=== PATIENT | female | born 1985 | race Two or more races ===

== ENCOUNTER 2016-11-15 06:40 | Observation (INO) | payer OTHER ==
[2016-11-15] MEDS ORDERED: ONDANSETRON 4 MG/2 ML VIAL IVP STA ×2 (07:23→14:08)
[2016-11-15] MEDS ORDERED: HYDROmorphone 1 MG/ML SYRINGE IVP STA ×2 (07:23→14:08)
[2016-11-15] MEDS ORDERED: ONDANSETRON 4 MG/2 ML VIAL ONE ×2 (07:27→14:10)
[2016-11-15] MEDS ORDERED: HYDROmorphone 1 MG/ML SYRINGE ONE ×2 (07:27→14:10)
--- NOTE | 2016-11-15 07:28 | ED Physician Documentation ---
History of Present Illness - Stated complaint Stated Complaint: LOW ABD PX - Chief complaint Chief Complaint: Abd Pain - Additonal information Additional information: hx from pt and no prior abd surgery recently stopped control and started IVF process in ovarian stimulation stage, has not had eggs collected or implantation began synarel nasal spray for ovarian stimulation Wednesday (6 d ago) , started subQ Follisteminjection Wed (2 days ago) vag bleeding began Wed (4 days ago) - light pelvic pain began Wednesday before her first subQ injection pain severe this AM nausea no BM for 2 days no dysuria no fever [facility] Review of Systems Constitutional: denies: Fever Cardiac: denies: Chest pain / pressure Respiratory: denies: Dyspnea GI: reports: Abdominal Pain, Nausea. denies: Diarrhea : reports: Vaginal bleeding. denies: Dysuria, Now EGA Endocrine: denies: Easy bruising / bleeding Immunocompromised: denies: Immunocompromised PD PAST MEDICAL HISTORY - Past Medical History Past Medical History: No - Past Surgical History Past Surgical History: Yes - Present Medications Home Medications: Ambulatory Orders Medication Instructions Recorded Confirmed Follitropin Beta,Recomb [Follistim IM DAILY 11/15/16 Aq] Oxymetazoline HCl [Nasal Crawford] 11/15/16 - Allergies Allergies/Adverse Reactions: Allergies Allergy/AdvReac Type Severity Reaction Status Date / Time No Known Drug Allergies Allergy Verified 11/15/16 06:46 - Social History Does the pt smoke?: No Smoking Status: Never smoker Does the pt drink ETOH?: No Does the pt have substance abuse?: No - Immunizations Immunizations are current?: Yes - POLST Patient has POLST: No PD ED PE NORMAL - Vitals Vital signs reviewed: Yes - General General: Alert and oriented X 3 - HEENT HEENT: Atraumatic - Cardiac Cardiac: RRR - Respiratory Respiratory: No respiratory distress, Clear bilaterally - Abdomen Abdomen: Other (mild distension, peritoneal diffusely) - Derm Derm: Normal color - Neuro Neuro: Alert and oriented X 3 Results - Vitals Vitals: Vital Signs - 24 hr 11/15/16 11/15/16 11/15/16 06:46 10:11 11:27 Temperature 36.7 C Heart Rate 105 H 92 88 Respiratory 18 16 14 Rate Blood Pressure 122/73 115/76 108/72 O2 Saturation 100 100 97 11/15/16 12:58 Temperature Heart Rate 89 Respiratory 16 Rate Blood Pressure 115/73 O2 Saturation 100 Oxygen O2 Source Room air - Labs Labs: Laboratory Tests 11/15/16 11/15/16 11/15/16 07:00 07:00 07:00 WBC 16.7 H RBC 4.74 Hgb 14.3 Hct 41.8 MCV 88.3 MCH 30.1 MCHC 34.1 RDW 14.0 Plt Count 317 MPV 8.7 Neut # 14.1 H Lymph # 1.5 [place] # 1.0 Eos # 0.1 Baso # 0.0 Absolute Nucleated RBC 0.01 Nucleated RBCs 0.0 Sodium 135 Potassium 3.6 Chloride 100 L Carbon Dioxide 26 Anion Gap 9.0 BUN 6 Creatinine 0.8 Estimated GFR (MDRD) 84 L Glucose 115 H Calcium 9.3 Total Bilirubin 1.8 H AST 16 ALT 12 Alkaline Phosphatase 54 Total Protein 8.1 Albumin 4.0 Globulin 4.1 Albumin/Globulin Ratio 1.0 Lipase 17 L Serum HCG, Qual NEGATIVE Urine Color Urine Clarity Urine pH Ur Specific [place] Urine Protein Urine Glucose (UA) Urine Ketones Urine Occult Blood Urine Nitrite Urine Bilirubin Urine Urobilinogen Ur Leukocyte Esterase Urine RBC Urine WBC Ur Epithelial Cells Ur Squamous Epith Cells Urine Bacteria Ur Microscopic Review Urine Culture Comments Urine HCG, Qual Blood Type Antibody Screen 11/15/16 11/15/16 11/15/16 10:10 10:10 11:20 WBC RBC Hgb 13.6 Hct MCV MCH MCHC RDW Plt Count MPV Neut # Lymph # [place] # Eos # Baso # Absolute Nucleated RBC Nucleated RBCs Sodium Potassium Chloride Carbon Dioxide Anion Gap BUN Creatinine Estimated GFR (MDRD) Glucose Calcium Total Bilirubin AST ALT Alkaline Phosphatase Total Protein Albumin Globulin Albumin/Globulin Ratio Lipase Serum HCG, Qual Urine Color RED/BLOODY Urine Clarity CLOUDY Urine pH 5.5 Ur Specific [place] >=1.030 H Urine Protein 100 H Urine Glucose (UA) NEGATIVE Urine Ketones >=80 H Urine Occult Blood LARGE H Urine Nitrite NEGATIVE Urine Bilirubin NEGATIVE Urine Urobilinogen 1 (NORMAL) Ur Leukocyte Esterase TRACE H Urine RBC TNTC H Urine WBC 11-25 H Ur Epithelial Cells MOD Renal Tubular H Ur Squamous Epith Cells MANY Squamous H Urine Bacteria Moderate H Ur Microscopic Review INDICATED Urine Culture Comments NOT INDICATED Urine HCG, Qual NEGATIVE Blood Type O POSITIVE Antibody Screen NEGATIVE PD MEDICAL DECISION MAKING - ED course ED course: ruptured hemorrhagic cyst with moderate hemoperitoneum - will rpt 4 hr HGB and requested BODY SANDER to come eval pt seen by Dr Love who will admit her Departure - Departure Disposition: ED Place in Observation Clinical Impression: Hemoperitoneum, Ruptured ovarian cyst Condition: Fair
[2016-11-15 07:33] LABS: BASOPHILS % (AUTO) 0.3 %; EOSINOPHILS # (AUTO) 0.1 10^3/uL (0.0-0.7); EOSINOPHILS % (AUTO) 0.4 %; HCT - HEMATOCRIT 41.8 % (37.0-47.0); HGB - HEMOGLOBIN 14.3 g/dL (12.0-16.0); LYMPHOCYTES # (AUTO) 1.5 10^3/uL (1.5-3.5); MEAN CORPUSCULAR HEMOGLOBIN 30.1 pg (27.0-31.0); MEAN CORPUSCULAR HGB CONC 34.1 g/dL (32.0-36.0); MEAN CORPUSCULAR VOLUME 88.3 fL (81.0-99.0); MEAN PLATELET VOLUME 8.7 fL (7.9-10.8); MONOCYTES % (AUTO) 6.1 %; NEUTROPHILS # (AUTO) 14.1 10^3/uL (1.5-6.6); NEUTROPHILS % (AUTO) 84.2 %; RED BLOOD COUNT 4.74 10^6/uL (4.20-5.40); UNCORRECTED WHITE BLOOD COUNT 16.7 x10^3/uL; WHITE BLOOD COUNT 16.7 x10^3/uL (4.8-10.8)
[2016-11-15 07:42] LABS: BILIRUBIN,TOTAL 1.8 mg/dL (0.2-1.0); CALCIUM 9.3 mg/dL (8.5-10.3); CREATININE 0.8 mg/dL (0.4-1.0); POTASSIUM 3.6 mmol/L (3.5-5.0); TOTAL PROTEIN 8.1 g/dL (6.7-8.2)
--- NOTE | 2016-11-15 09:35 | Ultrasound Preliminary Report ---
Exam: US Pel Non OB w/TV + Dop IMPRESSION: 1. A right ovarian complex cyst, likely a hemorrhagic cyst, 2 cm in maximum dimension with moderate a mount of mild complex free fluid in the cul-de-sac. 2. Negative ovarian torsion. 3. An anterior fundal subserosal fibroid, 0.9 cm in diameter. RAD[facility] SITE ID: [id number]
--- NOTE | 2016-11-15 09:37 | Ultrasound Report ---
EXAM: PELVIC ULTRASOUND EXAM DATE: 11/15/2016 08:58 AM. CLINICAL HISTORY: Pelvic pain. LMP on 11/11/2016. COMPARISON: None. TECHNIQUE: Realtime transabdominal pelvic scan performed to identify the uterus and adnexa and as an overview of other pelvic structures, followed by transvaginal scan to provide greater detail of the u terus and adnexa, with static image documentation. FINDINGS: Uterus: 6.5 x 3.6 x 3.9 cm, volume 47.7 cc. Retroverted position. Normal overall size and echotexture . Masses: There is anterior fundal subserosal fibroid, 0.9 x 0.7 x 0.8 cm. Endometrium: 3.4 mm. Normal. Cervix: Unremarkable. Right Ovary: 4.6 x 2.6 x 3.9 cm, volume 24.4 cc. There is complex cysts, 1.9 x 2 x 1.4 cm, probable h emorrhagic cyst and there is also a simple cyst, probable follicle cysts, 0.8 cm in diameter; otherw ise, unremarkable echotexture and blood flow. Left Ovary: 2.8 x 2.1 x 1.7 cm, volume 5.2 cc. Normal echotexture and blood flow. Free Fluid: Moderate amount of free fluid with echoic component in the cul-de-sac visualized. IMPRESSION: 1. A right ovarian complex cyst, likely a hemorrhagic cyst, 2 cm in maximum dimension with moderate a mount of mild complex free fluid in the cul-de-sac. 2. Negative ovarian torsion. 3. An anterior fundal subserosal fibroid, 0.9 cm in diameter. RAD[facility] Referring Provider Line: [phone] SITE ID: [id number]
[2016-11-15 11:34] LABS: PH,URINE 5.5 PH (5.0-7.5)
[2016-11-15 11:37] LABS: BILIRUBIN,URINE NEGATIVE (NEGATIVE); UA w/ MICROSCOPIC CHARGE YES
[2016-11-15 11:38] LABS: HCG UR QUAL NEGATIVE
[2016-11-15 12:02] LABS: UR CULTURE IF IND NOT INDICATED
[2016-11-15] MEDS ORDERED: SODIUM CHLORIDE FLUSH 0.9% 10 ML SYRINGE IVP PRN (14:13)
[2016-11-15] MEDS ORDERED: HYDROmorphone 1 MG/ML SYRINGE IVP PRN (14:13)
[2016-11-15] MEDS: LACTATED RINGERS 1,000 ML IV SCH ×2 (15:26→21:31)
[2016-11-15] MEDS: ONDANSETRON 4 MG/2 ML VIAL IVP PRN (18:09)
[2016-11-15 18:50] LABS: BASOPHILS % (AUTO) 0.1 %; EOSINOPHILS % (AUTO) 0.1 %; HCT - HEMATOCRIT 38.1 % (37.0-47.0); HGB - HEMOGLOBIN 12.7 g/dL (12.0-16.0); LYMPHOCYTES # (AUTO) 1.2 10^3/uL (1.5-3.5); LYMPHOCYTES % (AUTO) 8.1 %; MEAN CORPUSCULAR HEMOGLOBIN 29.6 pg (27.0-31.0); MEAN CORPUSCULAR HGB CONC 33.2 g/dL (32.0-36.0); MEAN CORPUSCULAR VOLUME 88.9 fL (81.0-99.0); MEAN PLATELET VOLUME 7.8 fL (7.9-10.8); MONOCYTES # (AUTO) 0.8 10^3/uL (0.0-1.0); MONOCYTES % (AUTO) 5.7 %; NEUTROPHILS # (AUTO) 12.5 10^3/uL (1.5-6.6); RED BLOOD COUNT 4.29 10^6/uL (4.20-5.40); UNCORRECTED WHITE BLOOD COUNT 14.5 x10^3/uL; WHITE BLOOD COUNT 14.5 x10^3/uL (4.8-10.8)
--- NOTE | 2016-11-15 21:01 | HISTORY & PHYSICAL EXAMINATION ---
OBSERVATION NOTE DATE OF ADMISSION: 11/15/2016 DIAGNOSES 1. Hemoperitoneum with ruptured left hemorrhagic corpus luteum. 2. In vitro fertilization patient. 3. Severe left lower quadrant pain. HISTORY OF PRESENT ILLNESS: The patient is a 31-year-old nulligravida , who began her first cycle of Ovarian Stimulation / IVF at the [facility]. She had pre-stimulation oxymetazoline nasal spray, followed by first injection of follitropin recombinant. On Wednesday, she noted predominantly lower quadrant pain on the left that gradually increased during the weekend. It became severe, /, which prompted her to present at the emergency room on early Wednesday morning. She reports malaise, nausea or vomiting, with some orthostatic dizziness, but no syncope,. She has no chest pain or shortness of breath, fevers, or chills, . Four days ago, she reports vaginal spotting. Her last bowel movement was 2 days ago and described as normal. PAST MEDICAL HISTORY: The patient has no chronic disease history or hospitalizations. PAST SURGICAL HISTORY: Wrist orthopedic surgery. ALLERGIES: NO KNOWN DRUG ALLERGIES. SOCIAL HISTORY: , [place] . No drug, tobacco or alcohol use. FAMILY HISTORY: noncontributory REVIEW OF SYSTEMS CONSTITUTIONAL: No fever. Malaise, orthostatic dizziness. HEENT: Negative. LUNGS: Negative. CARDIOVASCULAR: Negative. GASTROINTESTINAL: Negative. GENITOURINARY: Reference HPI. MUSCULOSKELETAL: Fracture, left wrist. NEUROLOGICAL: Negative. PHYSICAL EXAMINATION GENERAL: Patient lying quietly on ER gurney flat, some lethargy secondary to recent Dilaudid, verbalizes abdominal pain. HEENT/NECK: Supple neck. Moist mucous membranes. Dentition in good repair. EOMI. No thyromegaly. LUNGS: Clear. CARDIAC: Regular, no murmur, no gallop. BREASTS: Deferred. ABDOMEN: Mild distention, no organomegaly, grade 2/3 bilateral lower quadrant pain more distinct on the left side with mild peritoneal signs. PELVIC: Deferred. EXTREMITIES: Nonedematous with fingers and feet cool to touch. NEUROLOGIC: Grossly intact. LABORATORY: Baseline hemoglobin 14.3. Repeat hemoglobin in 3 hours 13.9. White count 16.7, platelets 317. Sodium 135, potassium 3.5, creatinine 0.8, glucose 105. Total bilirubin high at 1.8. Lipase low at 17. Urine: Increased specific gravity at 1.3, positive ketones, moderate renal tubular casts, moderate bacteria. Ultrasound: hemoperitoneum with some tracking into the upper abdomen. The free fluid is evidently blood as evidenced by peritoneal signs, and this is inducing moderate abdominal pain. PLAN: Will place the patient under observation for vital sign tracking, IV fluids and pain control. The bleeding is self limiting in the majority of the cases. If necessary, the patient may become laparoscopy candidate. Discussed plan with family and they concur. JOB #: [id number] EXT JOB #:[id number] DANAE
[2016-11-15] MEDS: SODIUM CHLORIDE FLUSH 0.9% 10 ML SYRINGE IVP SCH (23:08)
[2016-11-16] MEDS: ONDANSETRON 4 MG/2 ML VIAL IVP PRN ×2 (00:25→06:55)
[2016-11-16 02:15] LABS: BASOPHILS # (AUTO) 0.1 10^3/uL (0.0-0.1); EOSINOPHILS # (AUTO) 0.1 10^3/uL (0.0-0.7); EOSINOPHILS % (AUTO) 0.7 %; HCT - HEMATOCRIT 34.8 % (37.0-47.0); HGB - HEMOGLOBIN 11.8 g/dL (12.0-16.0); LYMPHOCYTES # (AUTO) 1.9 10^3/uL (1.5-3.5); LYMPHOCYTES % (AUTO) 17.5 %; MEAN CORPUSCULAR VOLUME 88.4 fL (81.0-99.0); MEAN PLATELET VOLUME 7.7 fL (7.9-10.8); MONOCYTES # (AUTO) 0.8 10^3/uL (0.0-1.0); MONOCYTES % (AUTO) 7.4 %; NEUTROPHILS # (AUTO) 7.9 10^3/uL (1.5-6.6); NEUTROPHILS % (AUTO) 73.4 %; RED BLOOD COUNT 3.94 10^6/uL (4.20-5.40); RED CELL DISTRIBUTION WIDTH 13.7 % (12.0-15.0); UNCORRECTED WHITE BLOOD COUNT 10.8 x10^3/uL; WHITE BLOOD COUNT 10.8 x10^3/uL (4.8-10.8)
[2016-11-16 02:25] LABS: ALBUMIN/GLOBULIN RATIO 0.9 (1.0-2.2); BILIRUBIN,TOTAL 1.3 mg/dL (0.2-1.0); CALCIUM 8.4 mg/dL (8.5-10.3); CREATININE 0.6 mg/dL (0.4-1.0); POTASSIUM 3.7 mmol/L (3.5-5.0); TOTAL PROTEIN 6.6 g/dL (6.7-8.2)
[2016-11-16] MEDS: LACTATED RINGERS 1,000 ML IV SCH ×2 (03:20→09:13)
[2016-11-16] MEDS: SODIUM CHLORIDE FLUSH 0.9% 10 ML SYRINGE IVP SCH ×2 (06:55→13:43)
[2016-11-16] MEDS ORDERED: IBUPROFEN 400 MG TABLET PO PRN (07:54)
--- NOTE | 2016-11-16 16:30 | Discharge Plan ---
Discharge Plan Disposition: Home, Self Care Condition: Good Diet: Regular Activity Restrictions: Work Excuse Thru Wednesday Shower Restrictions: No Driving Restrictions: Yes (Refrain from driving if taking [place]) Weight Bearing: Full Weight Additional Instructions or Follow Up instructions: Call [facility], FU on Wednesday as scheduled at IVF Clinic No Smoking: If you smoke, Please STOP! Call for help. Follow-up with: Ron Love MD [Provider Admit Priv/Credential] -
--- NOTE | 2016-11-16 16:41 | PROVIDER PROGRESS NOTE ---
Subjective - Prog Note Date Prog Note Date: 11/16/16 - Subjective Pt reports feeling: Improved Subjective: Pt improved, toileting, and eating well. Ready for Discharge Objective - Vital Signs/Intake & Output Vital Signs: Vital Signs x48h Temp Pulse Resp BP Pulse Ox 11/16/16 15:35 98.2 F 76 16 100/68 100 11/16/16 13:00 98.2 F 83 18 96/64 99 11/16/16 11:00 98.6 F 86 18 102/67 99 Intake & Output: Intake & Output 11/13/16 11/14/16 11/15/16 11/16/16 23:59 23:59 23:59 23:59 Intake Total 1093 2121 Output Total 220 1120 Balance 873 1001 - Lab Results Fish Bones: 11/16/16 02:08 11/16/16 02:08 Other Labs: Lab Results x24hrs 11/16/16 11/16/16 11/15/16 Range/Units 02:08 02:08 18:43 WBC 10.8 14.5 H (4.8-10.8) x10^3/uL RBC 3.94 L 4.29 (4.20-5.40) 10^6/uL Hgb 11.8 L 12.7 (12.0-16.0) g/dL Hct 34.8 L 38.1 (37.0-47.0) % MCV 88.4 88.9 (81.0-99.0) fL MCH 30.0 29.6 (27.0-31.0) pg MCHC 34.0 33.2 (32.0-36.0) g/dL RDW 13.7 14.0 (12.0-15.0) % Plt Count 255 287 (130-450) 10^3/uL MPV 7.7 L 7.8 L (7.9-10.8) fL Neut # 7.9 H 12.5 H (1.5-6.6) 10^3/uL Lymph # 1.9 1.2 L (1.5-3.5) 10^3/uL [place] # 0.8 0.8 (0.0-1.0) 10^3/uL Eos # 0.1 0.0 (0.0-0.7) 10^3/uL Baso # 0.1 0.0 (0.0-0.1) 10^3/uL Absolute Nucleated RBC 0.00 0.00 x10^3/uL Nucleated RBCs 0.0 0.0 /100WBC Sodium 136 (135-145) mmol/L Potassium 3.7 (3.5-5.0) mmol/L Chloride 102 (101-111) mmol/L Carbon Dioxide 26 (21-32) mmol/L Anion Gap 8.0 (6-13) BUN 8 (6-20) mg/dL Creatinine 0.6 (0.4-1.0) mg/dL Estimated GFR (MDRD) 117 (>89) Glucose 100 (70-100) mg/dL Calcium 8.4 L (8.5-10.3) mg/dL Total Bilirubin 1.3 H (0.2-1.0) mg/dL AST 14 (10-42) IU/L ALT 13 (10-60) IU/L Alkaline Phosphatase 40 L (42-121) IU/L Total Protein 6.6 L (6.7-8.2) g/dL Albumin 3.2 (3.2-5.5) g/dL Globulin 3.4 (2.1-4.2) g/dL Albumin/Globulin Ratio 0.9 L (1.0-2.2)
[2016-11-16] MEDS ORDERED: HYDROcod/ACETAM 5/325 MG TABLET PO SCH (17:00)
[2016-11-16 17:16] VITALS: BP 105/71
== END 2016-11-16 18:00 | disposition home or self-care (01) ==
LOC: ED 06:40 → MS 14:13
PROVIDERS: ADMIT Obstetrics & Gynecology; ATTEND Obstetrics & Gynecology
DX: K66.1 Hemoperitoneum (principal); N83.11 Corpus luteum cyst of right ovary; Z79.899 Other long term (current) drug therapy
CPT/HCPCS: 36415; 76830; 76856; 80053; 81001; 81025; 83690; 84703; 85018; 85025; 86850; 86900; 86901; 93975; 96361; 96374; 96375; 96376; 99283; 99284; A9270; G0378; J1170; J7120; 81003; 87086

== ENCOUNTER 2017-09-07 08:00 | Outpatient (CLI) | payer OTHER ==
[2017-09-07 18:46] LABS: BILIRUBIN,URINE NEGATIVE (NEGATIVE); GLUCOSE, URINE (UA) NEGATIVE (NEGATIVE); KETONES,URINE (UA) NEGATIVE (NEGATIVE); LEUKOCYTE ESTERASE, URINE NEGATIVE (NEGATIVE); NITRITE,URINE NEGATIVE (NEGATIVE); OCCULT BLOOD,URINE NEGATIVE (NEGATIVE); PH,URINE 5.5 PH (5.0-7.5); PROTEIN,URINE NEGATIVE (NEGATIVE); UROBILINOGEN,URINE 0.2 (NORMAL) E.U./dL (NORMAL)
[2017-09-07 18:54] LABS: BACTERIA,URINE None Seen /HPF (None Seen); CLARITY,URINE CLEAR (CLEAR); RBC,URINE None Seen /HPF (0-5); SQUAMOUS EPITHELIAL CELL,UR MOD Squamous (<= Few)
[2017-09-07 18:56] LABS: BASOPHILS % (AUTO) 0.5 %; EOSINOPHILS # (AUTO) 0.2 10^3/uL (0.0-0.7); EOSINOPHILS % (AUTO) 2.9 %; HGB - HEMOGLOBIN 12.4 g/dL (12.0-16.0); LYMPHOCYTES % (AUTO) 31.2 %; MEAN CORPUSCULAR HGB CONC 32.9 g/dL (32.0-36.0); MEAN PLATELET VOLUME 7.9 fL (7.9-10.8); MONOCYTES # (AUTO) 0.5 10^3/uL (0.0-1.0); MONOCYTES % (AUTO) 7.2 %; NEUTROPHILS # (AUTO) 3.7 10^3/uL (1.5-6.6); NEUTROPHILS % (AUTO) 58.2 %; PLT - PLATELET COUNT 351 10^3/uL (130-450); RED BLOOD COUNT 4.29 10^6/uL (4.20-5.40); RED CELL DISTRIBUTION WIDTH 13.7 % (12.0-15.0); WHITE BLOOD COUNT 6.4 x10^3/uL (4.8-10.8)
[2017-09-08 09:11] LABS: HEPATITIS B SURFACE ANTIGEN NON-REACTIVE (NON-REACTIVE)
[2017-09-08 15:46] LABS: HIV AG/AB 4TH GEN NON-REACTIVE (NON-REACTIVE)
== END 2017-09-07 08:01 | disposition home or self-care (01) ==
LOC: LAB.N 08:00
PROVIDERS: ATTEND Obstetrics & Gynecology
DX: O09.01 Supervision of pregnancy with history of infertility, first trimester (principal); Z32.00 Encounter for pregnancy test, result unknown
CPT/HCPCS: 36415; 81001; 81599; 84702; 85025; 86592; 86762; 86850; 86900; 86901; 87340; 87389

== ENCOUNTER 2017-09-09 15:26 | Outpatient (CLI) | payer OTHER | END 2017-09-09 15:27 | disposition home or self-care (01) | LOC: LAB.N 15:26 | PROVIDERS: ATTEND Obstetrics & Gynecology | DX: Z32.00 Encounter for pregnancy test, result unknown (principal) | CPT/HCPCS: 36415; 84702 ==

== ENCOUNTER 2017-09-16 14:58 | Outpatient (CLI) | payer OTHER ==
--- NOTE | 2017-09-20 15:10 | Ultrasound Report ---
FIRST TRIMESTER OB ULTRASOUND WITH TRANSVAGINAL: 09/16/2017 CLINICAL INDICATION: History of infertility, dating. TECHNIQUE: Transabdominal pelvic ultrasound performed for global evaluation. Transvaginal pelvic ultrasound performed for detailed evaluation. Real-time scanning performed and static images obtained. LAST MENSTRUAL PERIOD 07/31/2017 Clinical Age 6 weeks 5 days US Age 6 weeks 5 days EFW [place] -- EFW% [place]lock -- Heart Rate 142 bpm EDC 05/07/2018 US EDC 05/07/2018 BPD [place] -- HC [place]lock -- AC [place]lock -- FL Hadlock -- Presentation -- Placental Location -- Cervical Length closed Amniotic Fluid -- FINDINGS: There is a single viable intrauterine gestation, measuring 6 weeks 5 days by crown rump length (6 weeks 5 days by LMP). A small perigestational hemorrhage is seen. heart rate is 142 BPM. The right ovary measures 2.7 x 1.5 x 1.0 cm, and the left ovary measures 3.0 x 3.0 x 2.5 cm. There appears to be a right hydrosalpinx present interposed between the right ovary and uterus. Trace fluid is present. IMPRESSION: SINGLE VIABLE INTRAUTERINE GESTATION, WITH SIZE IN KEEPING WITH LMP DATING. SMALL PERIGESTATIONAL HEMORRHAGE. TD: 09/17/2017 11:13 [facility]
== END 2017-09-16 14:59 | disposition home or self-care (01) ==
LOC: DI 14:58
PROVIDERS: ATTEND Obstetrics & Gynecology
DX: O20.0 Threatened abortion (principal); O20.9 Hemorrhage in early pregnancy, unspecified; Z3A.01 Less than 8 weeks gestation of pregnancy
CPT/HCPCS: 76801; 76817

== ENCOUNTER 2017-10-14 17:27 | Outpatient (CLI) | payer OTHER ==
[2017-10-14 18:53] LABS: MUDS CUTOFF CONCENTRATIONS CUTOFF CONC BELOW:
[2017-10-14 19:11] LABS: AMPHETAMINE SCREEN,URINE NEGATIVE (NEGATIVE); BENZODIAZEPINES SCREEN, URINE NEGATIVE (NEGATIVE); COCAINE SCREEN URINE NEGATIVE (NEGATIVE); METHADONE SCREEN, URINE NEGATIVE (NEGATIVE); METHAMPHETAMINES SCREEN, URINE NEGATIVE (NEGATIVE); OPIATE SCREEN, URINE NEGATIVE (NEGATIVE); OXYCODONE SCREEN, URINE NEGATIVE (NEGATIVE); PROPOXYPHENE SCREEN, URINE NEGATIVE (NEGATIVE); TRICYCLIC ANTIDEPRESSANT,URINE NEGATIVE (NEGATIVE)
== END 2017-10-14 17:28 | disposition home or self-care (01) ==
LOC: LAB.R 17:27
PROVIDERS: ATTEND Obstetrics & Gynecology
DX: Z36.9 Encounter for antenatal screening, unspecified (principal)
CPT/HCPCS: 80306

== ENCOUNTER 2017-10-18 12:35 | Outpatient (CLI) | payer OTHER | END 2017-10-18 12:36 | disposition home or self-care (01) | LOC: LAB 12:35 | PROVIDERS: ATTEND Obstetrics & Gynecology | DX: Z01.89 Encounter for other specified special examinations (principal) | CPT/HCPCS: 36415 ==

== ENCOUNTER 2017-10-29 13:15 | Outpatient (CLI) | payer OTHER ==
[2017-10-29] MEDS ORDERED: ALBUTEROL NEB 2.5 MG/3 ML INH ONE ×2 (16:34)
== END 2017-10-29 13:16 | disposition home or self-care (01) ==
LOC: RT 13:15
PROVIDERS: ATTEND Obstetrics & Gynecology
DX: R06.2 Wheezing (principal)
CPT/HCPCS: 94060

== ENCOUNTER 2017-11-08 13:24 | Outpatient (CLI) | payer OTHER ==
[2017-11-08 18:45] LABS: BILIRUBIN,URINE NEGATIVE (NEGATIVE); GLUCOSE, URINE (UA) NEGATIVE (NEGATIVE); KETONES,URINE (UA) NEGATIVE (NEGATIVE); LEUKOCYTE ESTERASE, URINE NEGATIVE (NEGATIVE); NITRITE,URINE NEGATIVE (NEGATIVE); OCCULT BLOOD,URINE TRACE-LYSE (NEGATIVE); PH,URINE 5.5 PH (5.0-7.5); PROTEIN,URINE NEGATIVE (NEGATIVE); UROBILINOGEN,URINE 0.2 (NORMAL) E.U./dL (NORMAL)
[2017-11-08 18:54] LABS: BASOPHILS % (AUTO) 0.5 %; EOSINOPHILS # (AUTO) 0.1 10^3/uL (0.0-0.7); HGB - HEMOGLOBIN 11.5 g/dL (12.0-16.0); LYMPHOCYTES # (AUTO) 1.6 10^3/uL (1.5-3.5); LYMPHOCYTES % (AUTO) 19.4 %; MEAN CORPUSCULAR HEMOGLOBIN 29.8 pg (27.0-31.0); MEAN CORPUSCULAR HGB CONC 33.1 g/dL (32.0-36.0); MEAN CORPUSCULAR VOLUME 89.8 fL (81.0-99.0); MEAN PLATELET VOLUME 8.1 fL (7.9-10.8); MONOCYTES # (AUTO) 0.5 10^3/uL (0.0-1.0); MONOCYTES % (AUTO) 5.9 %; NEUTROPHILS # (AUTO) 6.1 10^3/uL (1.5-6.6); NEUTROPHILS % (AUTO) 73.2 %; PLT - PLATELET COUNT 302 10^3/uL (130-450); RED BLOOD COUNT 3.86 10^6/uL (4.20-5.40); RED CELL DISTRIBUTION WIDTH 14.3 % (12.0-15.0); WHITE BLOOD COUNT 8.3 x10^3/uL (4.8-10.8)
[2017-11-08 18:56] LABS: BACTERIA,URINE None Seen /HPF (None Seen); CLARITY,URINE CLEAR (CLEAR); RBC,URINE None Seen /HPF (0-5); SQUAMOUS EPITHELIAL CELL,UR MANY Squamous (<= Few)
[2017-11-09 14:16] LABS: HIV AG/AB 4TH GEN NON-REACTIVE (NON-REACTIVE)
[2017-11-09 14:44] LABS: HEPATITIS B SURFACE ANTIGEN NON-REACTIVE (NON-REACTIVE); HEPATITIS C ANTIBODY NON-REACTIVE (NON-REACTIVE)
== END 2017-11-08 13:25 | disposition home or self-care (01) ==
LOC: LAB.N 13:24
PROVIDERS: ATTEND Obstetrics & Gynecology
DX: Z36.9 Encounter for antenatal screening, unspecified (principal); Z13.79 Encounter for other screening for genetic and chromosomal anomalies
CPT/HCPCS: 36415; 81001; 81599; 85025; 86592; 86762; 86803; 86850; 86900; 86901; 87340; 87389

== ENCOUNTER 2017-11-12 10:51 | Outpatient (CLI) | payer OTHER ==
--- NOTE | 2017-11-12 16:04 | XRAY Report ---
TWO-VIEW CHEST: 11/12/2017 INDICATION: Cough. FINDINGS: Frontal and lateral views of the chest demonstrate a normal cardiac silhouette. The lungs are clear. No effusion or pneumothorax is present. IMPRESSION: NORMAL CHEST. TD: 11/12/2017 12:54
== END 2017-11-12 10:52 | disposition home or self-care (01) ==
LOC: DI.N 10:51
PROVIDERS: ATTEND Obstetrics & Gynecology
DX: J41.0 Simple chronic bronchitis (principal)
CPT/HCPCS: 71046

== ENCOUNTER 2018-01-12 12:38 | Outpatient (CLI) | payer OTHER ==
--- NOTE | 2018-01-13 08:50 | Ultrasound Report ---
Procedure Date: 01/12/2018 Accession Number: [id number] / [id number] Procedure: US - OB Detailed Eval CPT Code: FULL RESULT: EXAM: OB Detailed Eval DATE: 01/12/2018 2:30 PM CLINICAL HISTORY: ENCOUNTER FOR SCREENING,UNSPECIFIED TECHNIQUE: Real-time scanning was performed with manufacturers representative static images obtained. COMPARISON: None LAST MENSTRUAL PERIOD: 07/31/2017 Clinical Age: 23 weeks 4 days US Age: 24 weeks 4 days EFW Hadlock: 704 grams EFW % Hadlock: 83% Heart Rate: 150 bpm EDC: 05/07/2018 US EDC: 04/30/2018 BPD [place]: 24 weeks 1 days; Mean mm 59 HC [place]: 24 weeks 5 days; Mean mm 226 AC [place]lock: 24 weeks 1 days; Mean mm 194 FL Hadlock: 25 weeks 0 days; Mean mm 46 Presentation: Breech Placental Location: Posterior Low covering the cervix; Previa Cervical Length: Evaluation of the cervix is difficult due to limited acoustic window and placenta previa cm Amniotic Fluid: MASTER Subjectively normal cm; MVP 3.2 cm FINDINGS: There is a single live intrauterine gestation with 150 bpm in breech presentation with a posterior placenta which demonstrates normal 3 vessel cord insertion on the placenta previa. The uterus and bilateral adnexa as well as the close subjectively long cervix appear overall normal. The following anatomic structures were visualized and appear normal: The intracranial contents, including the ventricles and posterior fossa; the lips and orbits; the spine; the heart, including 4 chamber view and outflow tracts, and diaphragm; the abdominal contents, including the stomach, the bilateral kidneys, and urinary bladder, as well as a normal 3-vessel cord insertion; 4 limbs. IMPRESSION: Single live intrauterine gestation with an ultrasound age of 24 weeks and 4 days. Placenta previa.
== END 2018-01-12 12:39 | disposition home or self-care (01) ==
LOC: DI 12:38
PROVIDERS: ATTEND Obstetrics & Gynecology
DX: Z36.9 Encounter for antenatal screening, unspecified (principal)
CPT/HCPCS: 76811

== ENCOUNTER 2018-02-10 12:33 | Outpatient (CLI) | payer OTHER ==
--- NOTE | 2018-02-10 16:35 | Ultrasound Report ---
Procedure Date: 02/10/2018 Accession Number: [id number] / [id number] Procedure: US - OB F/U or Repeat CPT Code: FULL RESULT: EXAM: COMPLETE OBSTETRICAL ULTRASOUND EXAM DATE: 02/10/2018 02:09 PM. CLINICAL HISTORY: Follow-up placenta previa. COMPARISON: Ultrasound 01/12/2018. TECHNIQUE: Real-time sonographic evaluation of the fetus performed by the pulverizer. Multiple customer development representative static images were saved for review. DATING: Established EGA 28 weeks/5 days with JIMBO 04/30/18 based on ultrasound 01/12/2018. EGA 28 weeks/3 days with JIMBO 05/02/18 based on the current ultrasound. GENERAL EVALUATION [place] . Cardiac activity: 148 bpm. movement: Visualized. Presentation: Cephalic. Placenta: Posterior placenta extending over the cervical loss, previa position. Umbilical cord: 3 vessel cord. Central placental cord origin. Amniotic fluid: Subjectively normal. MVP 4.8 cm. BIOMETRY Bi-Parietal Diameter (BPD): 7.1 cm, 28 weeks/2 days Head Circumference (HC): 26.2 cm, 28 weeks/3 days Abdominal Circumference (AC): 24.3 cm, 28 weeks/3days Femur Length (FL): 5.5 cm, 28 weeks/6 days Estimated Weight: 1274 gm. MATERNAL STRUCTURES Uterus: Unremarkable. Cervix: Long and closed. Right ovary/adnexa: Unremarkable. Left ovary/adnexa: Unremarkable. Free fluid: None. IMPRESSION: 1. [place] live intrauterine with gestational age 28 weeks/ 3days based on current ultrasound. 2. Estimated weight is within expected limits for assigned dating. 3. Persistent placenta previa is redemonstrated. RADIA
== END 2018-02-10 12:34 | disposition home or self-care (01) ==
LOC: DI 12:33
PROVIDERS: ATTEND Obstetrics & Gynecology
DX: Z36.2 Encounter for other antenatal screening follow-up (principal); O44.03 Complete placenta previa NOS or without hemorrhage, third trimester; Z3A.28 28 weeks gestation of pregnancy
CPT/HCPCS: 76816

== ENCOUNTER 2018-02-24 08:00 | Outpatient (CLI) | payer OTHER | END 2018-02-24 08:01 | LOC: LAB.N 08:00 | PROVIDERS: ATTEND Obstetrics & Gynecology | DX: Z36.9 Encounter for antenatal screening, unspecified (principal) | CPT/HCPCS: 36415; 82950; 85018; 86850 ==

== ENCOUNTER 2018-03-02 13:03 | Outpatient (CLI) | payer OTHER ==
--- NOTE | 2018-03-02 15:42 | Ultrasound Report ---
Reason: COMPLETE PLACENTA PREVIA NOS OR WO NIRAJ, 2ND TRI Procedure Date: 03/02/2018 Accession Number: [id number] / [id number] Procedure: US - OB F/U or Repeat CPT Code: FULL RESULT: EXAM: FOLLOW-UP OBSTETRICAL ULTRASOUND EXAM DATE: 03/02/2018 01:13 PM. CLINICAL HISTORY: COMPLETE PLACENTA PREVIA for follow-up COMPARISON: 01/12/2018. TECHNIQUE: Real-time sonographic evaluation of the fetus performed by the garment inspector. Multiple field support representative static images were saved for review. DATING: Established EGA 30 weeks 4 days with JIMBO 05/07 based on LMP. EGA 31 weeks 4 days with JIMBO 04/30/2018 based on prior ultrasound 01/12/2018. EGA 32 weeks 4 days with JIMBO 04/23/2018 based on the current ultrasound. GENERAL EVALUATION [place] . Cardiac activity: 148 bpm. movement: Present. Presentation: Cephalic. Placenta: Posterior right lateral position. Total placenta previa. Amniotic fluid: Subjectively normal BIOMETRY Bi-Parietal Diameter (BPD): 8 cm, 32 weeks 0 days Head Circumference (HC): 31 cm, 34 weeks 2 days Abdominal Circumference (AC): 27.2 cm, 31 weeks 2 days Femur Length (FL): 6.3 cm, 32 weeks 3 days Estimated Weight: 1881 gm, 83rd percentile for 31 weeks 5 days. ANATOMY Not assessed MATERNAL STRUCTURES Not assessed IMPRESSION: 1. [place] intrauterine with gestational age 32 weeks 4 days based on composite ultrasound measurements today. 2. Estimated weight is in the 83rd percentile. 3. A complete placenta previa persists. Placenta is posterior and right lateral in location. RADIA
== END 2018-03-02 13:04 | disposition home or self-care (01) ==
LOC: DI 13:03
PROVIDERS: ATTEND Obstetrics & Gynecology
DX: O44.02 Complete placenta previa NOS or without hemorrhage, second trimester (principal); Z3A.32 32 weeks gestation of pregnancy
CPT/HCPCS: 76816

== ENCOUNTER 2018-03-10 15:48 | Outpatient (CLI) | payer OTHER ==
[2018-03-10] MEDS ORDERED: SODIUM CHLORIDE FLUSH 0.9% 10 ML SYRINGE IVP PRN (15:59)
[2018-03-10 16:12] VITALS: BP 114/78
[2018-03-10 17:24] LABS: BILIRUBIN,URINE NEGATIVE (NEGATIVE); GLUCOSE, URINE (UA) NEGATIVE (NEGATIVE); KETONES,URINE (UA) NEGATIVE (NEGATIVE); LEUKOCYTE ESTERASE, URINE NEGATIVE (NEGATIVE); NITRITE,URINE NEGATIVE (NEGATIVE); OCCULT BLOOD,URINE NEGATIVE (NEGATIVE); PROTEIN,URINE NEGATIVE (NEGATIVE); UROBILINOGEN,URINE 0.2 (NORMAL) E.U./dL (NORMAL)
[2018-03-10 17:31] LABS: BACTERIA,URINE Few /HPF (None Seen); CLARITY,URINE CLEAR (CLEAR); RBC,URINE None Seen /HPF (0-5); SQUAMOUS EPITHELIAL CELL,UR MANY Squamous (<= Few)
--- NOTE | 2018-03-10 20:51 | Ultrasound Report ---
Reason: placenta previa status Procedure Date: 03/10/2018 Accession Number: [id number] / [id number] Procedure: US - OB Limited CPT Code: FULL RESULT: EXAM: LIMITED OBSTETRICAL ULTRASOUND EXAM DATE: 03/10/2018 07:54 PM. CLINICAL HISTORY: Placenta previa status. COMPARISON: OB follow-up or repeat 03/02/2018. TECHNIQUE: Real-time sonographic evaluation of the fetus performed by the jigger machine operator. Multiple rental sales representative static images were saved for review. Additional transvaginal imaging to more accurately evaluate cervical length/placental position/etc. DATING: EGA 32 weeks 5 days with JIMBO 04/23/18 based on last ultrasound.. GENERAL EVALUATION [place] . Cardiac activity: 140 bpm. Presentation: Breech. Placenta: Posterior position. Placenta previa is again noted. Amniotic fluid: Normal. MASTER 12.2 cm. MVP 5 cm. MATERNAL STRUCTURES Cervix is long and closed, measures 4.2 cm. IMPRESSION: 1. Persistent placenta previa. position is breech. RADIA
== END 2018-03-10 20:55 | disposition home or self-care (01) ==
LOC: WFO 15:48 → FBP 15:51 → WFO 20:55
PROVIDERS: ATTEND Obstetrics & Gynecology
DX: O23.593 Infection of other part of genital tract in pregnancy, third trimester (principal); O44.03 Complete placenta previa NOS or without hemorrhage, third trimester; Z3A.31 31 weeks gestation of pregnancy; R05 Cough; R10.30 Lower abdominal pain, unspecified
CPT/HCPCS: 76815; 76817; 81001; 82731; 84112; 87086; 87210; 87491; 87591; 99214

== ENCOUNTER 2018-03-15 11:02 | Outpatient (CLI) | payer OTHER ==
[2018-03-15 15:51] VITALS: BP 107/70
== END 2018-03-15 15:15 | disposition home or self-care (01) ==
LOC: WFO 11:02 → FBP 11:04 → WFO 15:15
PROVIDERS: ATTEND Obstetrics & Gynecology
DX: O44.13 Complete placenta previa with hemorrhage, third trimester (principal); Z3A.32 32 weeks gestation of pregnancy; Z87.42 Personal history of other diseases of the female genital tract
CPT/HCPCS: 99213

== ENCOUNTER 2018-03-16 13:32 | Outpatient (CLI) | payer OTHER ==
[2018-03-16 14:50] VITALS: BP 109/63
== END 2018-03-16 14:20 | disposition home or self-care (01) ==
LOC: WFO 13:32 → FBP 13:33 → WFO 14:20
PROVIDERS: ATTEND Obstetrics & Gynecology
DX: O44.13 Complete placenta previa with hemorrhage, third trimester (principal); Z3A.32 32 weeks gestation of pregnancy
CPT/HCPCS: 99213

== ENCOUNTER 2018-03-22 12:36 | Outpatient (CLI) | payer OTHER ==
[2018-03-22] MEDS ORDERED: BETAMETHASONE 30 MG/5 ML VIAL IM ONE (13:17)
[2018-03-22] MEDS ORDERED: BETAMETHASONE 30 MG/5 ML VIAL ONE (13:22)
== END 2018-03-22 13:35 | disposition home or self-care (01) ==
LOC: WFO 12:36 → FBP 13:07 → WFO 13:35
PROVIDERS: ATTEND Obstetrics & Gynecology
DX: O44.03 Complete placenta previa NOS or without hemorrhage, third trimester (principal); Z3A.33 33 weeks gestation of pregnancy
CPT/HCPCS: 96372

== ENCOUNTER 2018-03-23 08:31 | Outpatient (CLI) | payer OTHER | END 2018-03-23 08:32 | disposition critical access hospital (66) | LOC: EMS 08:31 | PROVIDERS: ATTEND Surgery | DX: O46.93 Antepartum hemorrhage, unspecified, third trimester (principal) | CPT/HCPCS: A0425; A0427 ==

== ENCOUNTER 2018-03-23 09:49 | Inpatient (IN) | payer OTHER ==
[2018-03-23 09:14] LABS: BASOPHILS % (AUTO) 0.1 %; EOSINOPHILS % (AUTO) 0.1 %; HGB - HEMOGLOBIN 11.9 g/dL (12.0-16.0); LYMPHOCYTES # (AUTO) 1.6 10^3/uL (1.5-3.5); LYMPHOCYTES % (AUTO) 14.9 %; MEAN CORPUSCULAR HEMOGLOBIN 29.5 pg (27.0-31.0); MEAN CORPUSCULAR HGB CONC 34.4 g/dL (32.0-36.0); MEAN CORPUSCULAR VOLUME 85.9 fL (81.0-99.0); MEAN PLATELET VOLUME 8.1 fL (7.9-10.8); MONOCYTES # (AUTO) 0.5 10^3/uL (0.0-1.0); MONOCYTES % (AUTO) 4.9 %; NEUTROPHILS # (AUTO) 8.5 10^3/uL (1.5-6.6); PLT - PLATELET COUNT 245 10^3/uL (130-450); RED BLOOD COUNT 4.04 10^6/uL (4.20-5.40); RED CELL DISTRIBUTION WIDTH 19.7 % (12.0-15.0); WHITE BLOOD COUNT 10.7 x10^3/uL (4.8-10.8)
[~2018-03-23 09:49] MED LIST: BETAMETHASONE 30 MG/5 ML VIAL IM SCH; BETAMETHASONE 30 MG/5 ML VIAL ONE; CITRIC ACID/SODIUM CITRATE 15 ML UDC PO ONE; LACTATED RINGERS 1,000 ML IV ONE; ceFAZolin 2 GM in SODIUM CHLORIDE 0.9% MINIBAG 100 ML IV SCH
[2018-03-23] MEDS ORDERED: ceFAZolin 1 GM VIAL IV ONE (10:00)
[2018-03-23] MEDS ORDERED: DEXAMETHASONE 4 MG/ML VIAL IVP ONE (10:00)
[2018-03-23] MEDS ORDERED: ACETAMINOPHEN 1,000 MG/100 ML 100 ML IV ONE (10:00)
[2018-03-23] MEDS ORDERED: ONDANSETRON 4 MG/2 ML VIAL IVP ONE (10:00)
[2018-03-23] MEDS ORDERED: OXYTOCIN 10 UNIT/ML VIAL IV ONE (10:00)
[2018-03-23] MEDS ORDERED: PROPOFOL 200 MG/20 ML VIAL IVP ONE (10:00)
[2018-03-23] MEDS ORDERED: KETOROLAC 30 MG/ML VIAL IVP ONE (10:00)
[2018-03-23] MEDS ORDERED: METHYLERGONOVINE 0.2 MG/ML AMP IVP ONE (10:00)
[2018-03-23] MEDS ORDERED: LACTATED RINGERS 1,000 ML IV ONE ×3 (10:00→11:31)
[2018-03-23] MEDS ORDERED: fentaNYL 100 MCG/2 ML VIAL IVP ONE (10:00)
[2018-03-23] MEDS ORDERED: MIDAZOLAM 2 MG/2 ML VIAL IVP ONE (10:00)
[2018-03-23] MEDS ORDERED: CARBOPROST TROMETHAMINE 250 MCG/ML AMP IM ONE (10:00)
[2018-03-23] MEDS ORDERED: PHENYLEPHRINE 50 MG/5 ML VIAL IV ONE (10:00)
[2018-03-23] MEDS ORDERED: SUCCINYLCHOLINE 200 MG/10 ML VIAL IVP ONE (10:00)
[2018-03-23 10:16] LABS: CORD ARTERIAL BLD BASE EXCESS -6.3; CORD ARTERIAL BLOOD HCO3 19.7; CORD ARTERIAL BLOOD PCO2 40.7; CORD ARTERIAL BLOOD PO2 23.4; CORD ARTERIAL BLOOD TOTAL CO2 20.9
[2018-03-23 10:16] LABS: ALBUMIN/GLOBULIN RATIO 0.9 (1.0-2.2); BILIRUBIN,TOTAL 0.4 mg/dL (0.2-1.0); CALCIUM 5.9 mg/dL (8.5-10.3); CREATININE 0.3 mg/dL (0.4-1.0); TOTAL PROTEIN 4.2 g/dL (6.7-8.2)
[2018-03-23 10:19] LABS: CORD VENOUS BLOOD PH 7.329
[2018-03-23 10:20] LABS: CORD VENOUS BLD PO2 27.1; CORD VENOUS BLOOD BASE EXCESS -3.2; CORD VENOUS BLOOD HCO3 22.7; CORD VENOUS BLOOD OXYGEN SAT 67.4; CORD VENOUS BLOOD PCO2 44.2; CORD VENOUS BLOOD TOTAL CO2 24.1
[2018-03-23] MEDS ORDERED: oxyCODONE 5 MG TABLET PO ONE (10:49)
[2018-03-23] MEDS: fentaNYL 100 MCG/2 ML VIAL ONE ×2 (10:56→11:06)
[2018-03-23] MEDS: LACTATED RINGERS 1,000 ML IV SCH (11:00)
--- NOTE | 2018-03-23 11:01 | OPERATIVE REPORT ---
Operative Report - General Admit Date: 03/23/18 Procedure Date: 03/23/18 Planned Procedure: Primary Pre-Op Diagnosis: Complete placenta previa, with bleeding, 3rd trimester. Non reassuring fet Procedure Performed: Primary Post Op Diagnosis: same - Procedure Note Primary Surgeon: heriberto Secondary Surgeon: Herlinda Anesthesia Provider: JOSEFINA Anesthesia Technique: General ET tube Pathology: placenta, cord gasses IV Fluids (mL): 1,500 Estimated Blood Loss (mL): 1,200 Urine Output (mL): 100
[2018-03-23] MEDS ORDERED: HYDROmorphone 1 MG/ML CARPUJECT ONE (11:18)
[2018-03-23] MEDS ORDERED: oxyCODONE 5 MG TABLET PO SCH (11:29)
--- NOTE | 2018-03-23 11:31 | ANESTHESIA ---
Pre-Anesthesia VS, & Labs - Diagnosis placenta previa with non-reassuring tones - Procedure emergency (GETA) Vital Signs: Temp Pulse Resp BP Pulse Ox 36.2 C L 102 H 17 135/88 H 100 03/23/18 11:21 03/23/18 11:21 03/23/18 11:21 03/23/18 11:21 03/23/18 11:21 Height 5 ft 2 in Body Mass Index 20.4 - NPO >8 hours - Is Patient ?: Yes - Lab Results Current Lab Results: Laboratory Tests 03/23/18 10:05: Cord ABG pH 7.302, Cord ABG pCO2 40.7, Cord ABG pO2 23.4, Cord ABG HCO3 19.7, Cord ABG Total CO2 20.9, Cord ABG Base Excess -6.3, Cord ABG O2 Sat 59.7, Cord VBG pH 7.329, Cord VBG pCO2 44.2, Cord VBG pO2 27.1, Cord VBG HCO3 22.7, Cord VBG Total CO2 24.1, Cord VBG Base Excess -3.2, Cord VBG O2 Sat 67.4 03/23/18 09:00: Sodium 139, Potassium 2.3 L*, Chloride 118 H, Carbon Dioxide 15 L, Anion Gap 6.0, BUN 6, Creatinine 0.3 L, Estimated GFR (MDRD) 259, Glucose 76, Calcium 5.9 L*, Total Bilirubin 0.4, AST 17, ALT 11, Alkaline Phosphatase 90, Total Protein 4.2 L, Albumin 2.0 L, Globulin 2.2, Albumin/Globulin Ratio 0.9 L 03/23/18 09:00: WBC 10.7, RBC 4.04 L, Hgb 11.9 L, Hct 34.7 L, MCV 85.9, MCH 29.5, MCHC 34.4, RDW 19.7 H, Plt Count 245, MPV 8.1, Neut # (Auto) 8.5 H, Lymph # (Auto) 1.6, [place] # (Auto) 0.5, Eos # (Auto) 0.0, Baso # (Auto) 0.0, Absolute Nucleated RBC 0.00, Nucleated RBC % 0.0 Lab results reviewed: Yes Fish Bones: 03/23/18 09:00 03/23/18 09:00 Home Medications and Allergies Home Medications: Ambulatory Orders Medication Instructions Recorded Confirmed No Known Home Medications 11/16/16 11/16/16 Active Medications Benzonatate (Tessalon) 100 mg PO TID PRN PRN Reason: Cough Oxycodone HCl (Roxicodone) 10 mg PO ONCE ONE Stop: 03/23/18 10:50 Last Admin: 03/23/18 11:03 Dose: 10 mg No Known Home Medications 11/16/16 Allergies/Adverse Reactions: Allergies Allergy/AdvReac Type Severity Reaction Status Date / Time No Known Drug Allergies Allergy Verified 11/15/16 06:46 Anes History & Medical History - Anesthetic History Anesthesia Complications: reports: No previous complications Family history of Anesthesia Complications: Denies Family history of Malignant Hyperthermia: Denies - Medical History Cardiovascular: reports: None Pulmonary: reports: None, Other Gastrointestinal: reports: Ulcers Urinary: reports: None Musculoskeletal: reports: None Endocrine/Autoimmune: reports: None Blood Disorders: reports: None Skin: reports: None Smoking Status: Never smoker - Surgical History Cardiothoracic: Other Orthopedic: Other Exam General: Alert, Oriented x3, Cooperative, No acute distress Dental: WNL Mouth Openin Fingerbreadth Mallampati classification: II Thyromental Distance: 4-6 cm Respiratory: Lungs clear (nasal congestion and cough), Normal breath sounds, No respiratory distress, No accessory muscle use Cardiovascular: Regular rate (tachy) Mental/Cognitive Status: Alert/Oriented X3 Cognitive Status: Within normal limits Plan Anesthesia Type: General Consent for Procedure(s) Verified and Reviewed: Yes Code Status: Attempt Resuscitation ASA classification: 2-Mild systemic disease Is this case an emergency?: Yes
[2018-03-23 11:33] LABS: HGB - HEMOGLOBIN 11.4 g/dL (12.0-16.0); MEAN CORPUSCULAR HEMOGLOBIN 28.9 pg (27.0-31.0); MEAN CORPUSCULAR HGB CONC 33.1 g/dL (32.0-36.0); MEAN CORPUSCULAR VOLUME 87.2 fL (81.0-99.0); MEAN PLATELET VOLUME 8.2 fL (7.9-10.8); RED BLOOD COUNT 3.93 10^6/uL (4.20-5.40); RED CELL DISTRIBUTION WIDTH 19.6 % (12.0-15.0); WHITE BLOOD COUNT 11.9 x10^3/uL (4.8-10.8)
--- NOTE | 2018-03-23 11:34 | XRAY Report ---
Reason: cough Procedure Date: 03/23/2018 Accession Number: [id number] / [id number] Procedure: XR - Chest 1 View X-Ray CPT Code: 03957 FULL RESULT: EXAM: CHEST RADIOGRAPHY EXAM DATE: 03/23/2018 10:54 AM. CLINICAL HISTORY: Cough. COMPARISON: CHEST 2 VIEW 11/12/2017 11:14 AM. TECHNIQUE: 1 view. FINDINGS: Lungs/Pleura: No focal opacities evident. No pleural effusion. No pneumothorax. Mediastinum: Within exam limitations, the cardiomediastinal contour is normal. Other: No acute osseous abnormality. IMPRESSION: No focal pulmonary consolidation or other acute cardiopulmonary abnormality. RADIA
[2018-03-23 11:44] LABS: ALBUMIN 2.6 g/dL (3.2-5.5); ALBUMIN/GLOBULIN RATIO 0.8 (1.0-2.2); ALKALINE PHOSPHATASE 127 IU/L (42-121); ALT ALANINE AMINOTRANSFERASE 14 IU/L (10-60); AST ASPARTATE AMINOTRANSFERASE 29 IU/L (10-42); BILIRUBIN,TOTAL 0.5 mg/dL (0.2-1.0); BUN - BLOOD UREA NITROGEN 7 mg/dL (6-20); CALCIUM 8.5 mg/dL (8.5-10.3); CARBON DIOXIDE - CO2 18 mmol/L (21-32); CHLORIDE 107 mmol/L (101-111); CREATININE 0.6 mg/dL (0.4-1.0); GFR - MDRD 117 (>89); GLUCOSE 102 mg/dL (70-100); SODIUM 135 mmol/L (135-145); TOTAL PROTEIN 5.9 g/dL (6.7-8.2)
[2018-03-23] MEDS ORDERED: diphenhydrAMINE INJ 50 MG/ML VIAL IVP PRN (11:47)
[2018-03-23] MEDS ORDERED: ONDANSETRON ODT 4 MG TABLET TL PRN (11:47)
[2018-03-23] MEDS ORDERED: SODIUM CHLORIDE FLUSH 0.9% 10 ML SYRINGE IVP PRN (11:47)
[2018-03-23] MEDS ORDERED: diphenhydrAMINE 25 MG CAPSULE PO PRN (11:47)
[2018-03-23] MEDS ORDERED: MAGNESIUM HYDROXIDE 2,400 MG/30 ML UDC PO PRN (11:47)
[2018-03-23] MEDS ORDERED: HYDROCORTISONE/PRAMOXINE 10 GM PR PRN (11:47)
[2018-03-23] MEDS ORDERED: WITCH HAZEL/GLYCERIN 1 EACH MED..PAD TOP PRN (11:47)
[2018-03-23] MEDS ORDERED: MORPHINE 10 MG/ML VIAL IVP PRN (11:51)
[2018-03-23] MEDS: BENZONATATE 100 MG CAPSULE PO PRN (12:30)
--- NOTE | 2018-03-23 13:08 | HISTORY & PHYSICAL EXAMINATION ---
DATE OF SERVICE: 03/23/2018 Physician: Brittany De Jesus MD CHIEF COMPLAINT: Bleeding. HISTORY OF PRESENT ILLNESS: The patient has a known placenta previa that has been intermittently spotting over the past 2 weeks. This morning, she noticed a bigger amount of bleeding. She soaked through two super pads at home and did show us pictures of this on her phone. She came in via ambulance. She might feel like she has some vague left-sided intermittent abdominal pain. No leaking of bladder. She is feeling less movement than usual. PAST MEDICAL HISTORY: Negative. PAST SURGICAL HISTORY: Negative. ALLERGIES: NO KNOWN DRUG ALLERGIES. MEDICATIONS 1. vitamins daily. 2. Iron daily. 3. Flonase. 4. Pepcid. 5. Pulmicort Flexhaler. SOCIAL HISTORY: No tobacco, alcohol, or drug use. The patient's is currently deployed out of the country. OB HISTORY: The patient has a due date of 05/07/2018 by last menstrual period, consistent with a 6-week ultrasound. This makes her 33 weeks and 4 days today. This is her first . It has been complicated by the known placenta previa that is complete. She had care transferred to [place] in [place], as she was likely to need primary section and would be better served in a facility that has interventional radiology, etc. She has had chronic nasal congestion and cough this , as well, for which she started Pulmicort and nasal Flonase. She had a chest x-ray in 10/2017 that was normal. VACCINATIONS: Patient is status post her TDap. She has not yet received her flu shot. LABS: Blood type O positive. Gonorrhea and chlamydia negative. One- hour glucose 125. Antibody screen negative. Second trimester hemoglobin was 10.5. Rubella immune, HIV negative. RPR negative. Platelets 351,000. Normal anatomy screening. REVIEW OF SYSTEMS: Patient is tachycardic with heart rate up to the 140s. Otherwise, vital signs are stable. She is alert and is nervous but very cooperative. PHYSICAL EXAMINATION: Abdomen is soft and nontender. Per anesthesia's exam, her lungs were clear. heart tracing initially was category 1 with a baseline of 140 beats per minute, moderate long-term variability present, accelerations present, decelerations absent. However, after the patient got up to go to the bathroom, when she came back, she was having prolonged deceleration to the 80s that lasted for at least 3 minutes. This was noted to be because the mom had a pulse oximetry on at this time with a heart rate of 125. This deceleration spontaneously recovered. IV fluids were bolused. After the deceleration the baseline returned to 150 beats per minute with an acceleration seen, variability was minimal. [place] during her triage stay was showing possible irregular contractions. ASSESSMENT AND PLAN: Patient is a 32-year-old, G1, P0, at 33 weeks and 4 days by an LMP consistent with a 6-week ultrasound with a complete placenta previa and active significant quantity of bleeding today. Shortly after arrival in triage, she also had a 3-minute deceleration fetally to 80 beats per minute. She was counseled for immediate primary because of these 2 findings. Two IVs were placed. She was typed and crossed for 4 units of packed red blood cells. The hemorrhage medications were available in the operating room. Two units of red blood cells were brought to the operating room in case of need for transfusion. General anesthesia was chosen to expedite the surgery. While in triage, she had a Burrell catheter and SCDs placed while the room was being readied. She also received Bicitra and will receive Ancef in the operating room. The patient has been long aware that she would need a , possibly under emergent circumstances. The procedure was briefly explained and risks were briefly reviewed including bleeding, infection, trauma to local organs, anesthesia complications. She is also aware that she is at a higher risk than most for needing a hysterectomy to control bleeding. Her consent form was signed. TD: 03/23/2018 11:58 DANAE
--- NOTE | 2018-03-23 13:13 | OPERATIVE REPORT ---
DATE OF SERVICE: 03/23/2018 Physician: Brittany De Jesus MD PREOPERATIVE DIAGNOSES: 1. Intrauterine at 33 weeks, 5 days. 2. Complete placenta previa, actively bleeding. 3. Nonreassuring surveillance. POSTOPERATIVE DIAGNOSES: 1. Intrauterine at 33 weeks, 5 days. 2. Complete placenta previa, actively bleeding. 3. Nonreassuring surveillance. PROCEDURE: Primary section: This was not a low-transverse section. The incision was made cranial to the previa at the junction between lower and the mid uterus. SURGEON: Brittany De Jesus MD. ELECTRIC DEICER ASSEMBLER: [place]. ANESTHESIA: General. ESTIMATED BLOOD LOSS: 100 mL IV FLUIDS: 1500 mL of crystalloid. URINE OUTPUT: 100 mL, clear. COUNTS: Correct x2. COMPLICATIONS: None apparent. DISPOSITION: Stable to recovery room. PROPHYLAXIS: SCDs to bilateral lower extremities, Ancef 2 grams IV. SPECIMENS: Placenta to pathology and cord gases to lab. FINDINGS: 1. Clear amniotic fluid. 2. Liveborn male, Apgars 6 at 1 minute and 8 at 5 minutes, with a weight of 5 pounds 10 ounces. 3. Normal-appearing uterus, ovaries and fallopian tubes. COUNSELING: The patient came to OB triage via ambulance for vaginal bleeding at home, soaking through 2 pads rather quickly. Please see H and P for initial management. While we were observing for any excessive ongoing bleeding, the tracing revealed a 3-minute deceleration down to the 80s. At this point, the section was ordered. She had SCDs and a Burrell catheter placed in OB triage. She had 2 IVs. She received continuous monitoring until her abdomen was prepped. DESCRIPTION OF PROCEDURE: The patient was brought to the operating room where she was prepped with Betadine. I chose to do Betadine instead of chlorhexidine because I did not want to wait 3 minutes for the chlorhexidine to dry. She was draped in the usual sterile fashion. She underwent general anesthesia and when anesthesia authorized me to, I made a Pfannenstiel skin incision with a scalpel. This was carried down to the fascia, which was nicked in the midline bilaterally. The fascia was extended bluntly, laterally. The fascia was dissected off of the rectus bluntly superiorly. inferiorly two Kochers were placed on the fascial margin and the fascia was sharply dissected off of the rectus. The peritoneum was bluntly entered. Bladder retractor was placed. The area with the placenta previa was evident, and I chose not to incise through the previa on the weight of the baby. Instead, I went just superior to this, which was at the junction between the lower and mid uterine segment. This location was again assessed while suturing and after suturing. Although we were just millimeters from the lower uterine segment, I would not recommend a trial of labor following . The membranes were bluntly ruptured. The surgeon's hand was placed in the uterine cavity and the head was elevated and then delivered with the assistance of fundal pressure. There was no nuchal cord. A vigorous baby was delivered without difficulty. The umbilical cord was clamped x2 and cut and the baby was handed to the pediatrics team in waiting. I did not obtain cord blood for typing as I wanted to rapidly assess the placenta previa. The placenta was delivered with external uterine massage. It appeared to be intact. The patient had brisk bleeding from the anterior portion of her lower uterine segment. Somewhere incisional and some were inferior to this. These were clamped with ring forceps and the uterus was externalized. The uterus was curetted with a dry laparotomy with no return of membranes. The uterine incision was closed with a running layer of 0 Vicryl. Good hemostasis resulted. The patient initially had suboptimal uterine tone. It was never frankly atonic but we wanted to get ahead of any problems. She did receive a Pitocin bolus shortly after delivery. She then received doses of Methergine and Hemabate in rapid succession. Following this, tone was excellent. I do believe that most of her blood loss was from the uterus itself at the placenta site. The cul-de-sac and gutters were copiously irrigated and the uterus was returned to its intraperitoneal location. A second imbricating closure was performed on the uterine incision with 0 Vicryl. Hemostasis of the uterine incision fascia and rectus were excellent. The peritoneum was closed with a running layer of 2-0 Vicryl. The fascia was closed with a running layer of 0 Vicryl from end to end. The subcuticular tissues were copiously irrigated. There were no bleeders. The subcutaneous tissues were reapproximated with interrupted sutures of 2-0 Vicryl. The skin was closed with 4-0 Monocryl in a subcuticular fashion. Dermabond was then applied. I had taken care to perform intermittent fundal massage during the closure. Fundal massage at the end of the procedure revealed a midline firm uterus 2 cm below the umbilicus. The patient's ongoing vaginal bleeding was normal in quantity. The patient has had a chronic cough and nasal congestion. She woke up in the PACU coughing. We will get a chest x-ray to evaluate this. She also had a low potassium intraoperative but anesthesia felt that this might be inaccurate as her telemetry was completely normal. Stat labs were ordered to be performed in the PACU. TD: 03/23/2018 11:34 DANAE
[2018-03-23] MEDS: ACETAMINOPHEN 500 MG TABLET PO SCH (17:10)
[2018-03-23] MEDS: SIMETHICONE CHEW 80 MG TABLET PO SCH (17:10)
[2018-03-23] MEDS: oxyCODONE 5 MG TABLET PO PRN (17:10)
[2018-03-23] MEDS: FLUTICASONE NASAL SPRAY NAS SCH (18:05)
[2018-03-23] MEDS: DOCUSATE SODIUM 100 MG CAPSULE PO SCH (21:09)
[2018-03-23] MEDS: CELECOXIB 100 MG CAPSULE PO SCH (21:10)
[2018-03-24] MEDS: ONDANSETRON 4 MG/2 ML VIAL IVP PRN ×3 (01:12→20:09)
[2018-03-24] MEDS: SODIUM CHLORIDE FLUSH 0.9% 10 ML SYRINGE IVP SCH ×3 (01:12→10:10)
[2018-03-24] MEDS: oxyCODONE 5 MG TABLET PO PRN ×4 (01:41→22:51)
[2018-03-24] MEDS: ACETAMINOPHEN 500 MG TABLET PO SCH ×4 (01:42→19:56)
[2018-03-24] MEDS: DOCUSATE SODIUM 100 MG CAPSULE PO SCH ×2 (08:57→21:32)
[2018-03-24] MEDS: CELECOXIB 100 MG CAPSULE PO SCH ×2 (08:57→21:32)
[2018-03-24] MEDS: SIMETHICONE CHEW 80 MG TABLET PO SCH ×4 (08:57→18:06)
--- NOTE | 2018-03-24 09:21 | PROVIDER PROGRESS NOTE ---
Objective - Vital Signs/Intake & Output Vital Signs: Vital Signs x48h Temp Pulse Resp BP Pulse Ox 03/24/18 08:59 98.4 F 81 18 118/76 96 03/24/18 05:01 98.1 F 89 16 111/74 95 Intake & Output: Intake & Output 03/21/18 03/22/18 03/23/18 03/24/18 23:59 23:59 23:59 23:59 Intake Total 1720 550 Output Total 4300 200 Balance -2580 350 - Lab Results Fish Bones: 03/23/18 11:28 03/23/18 11:28 Other Labs: Lab Results x24hrs 03/23/18 03/23/18 03/23/18 Range/Units 11:28 11:28 10:05 WBC 11.9 H (4.8-10.8) x10^3/uL RBC 3.93 L (4.20-5.40) 10^6/uL Hgb 11.4 L (12.0-16.0) g/dL Hct 34.3 L (37.0-47.0) % MCV 87.2 (81.0-99.0) fL MCH 28.9 (27.0-31.0) pg MCHC 33.1 (32.0-36.0) g/dL RDW 19.6 H (12.0-15.0) % Plt Count 202 (130-450) 10^3/uL MPV 8.2 (7.9-10.8) fL Neut # (Auto) (1.5-6.6) 10^3/uL Lymph # (Auto) (1.5-3.5) 10^3/uL Traverse # (Auto) (0.0-1.0) 10^3/uL Eos # (Auto) (0.0-0.7) 10^3/uL Baso # (Auto) (0.0-0.1) 10^3/uL Absolute Nucleated RBC x10^3/uL Nucleated RBC % /100WBC Cord ABG pH 7.302 Cord ABG pCO2 40.7 Cord ABG pO2 23.4 Cord ABG HCO3 19.7 Cord ABG Total CO2 20.9 Cord ABG Base Excess -6.3 Cord ABG O2 Sat 59.7 Cord VBG pH 7.329 Cord VBG pCO2 44.2 Cord VBG pO2 27.1 Cord VBG HCO3 22.7 Cord VBG Total CO2 24.1 Cord VBG Base Excess -3.2 Cord VBG O2 Sat 67.4 Sodium 135 (135-145) mmol/L Potassium 3.8 (3.5-5.0) mmol/L Chloride 107 (101-111) mmol/L Carbon Dioxide 18 L (21-32) mmol/L Anion Gap 10.0 (6-13) BUN 7 (6-20) mg/dL Creatinine 0.6 (0.4-1.0) mg/dL Estimated GFR (MDRD) 117 (>89) Glucose 102 H (70-100) mg/dL Calcium 8.5 (8.5-10.3) mg/dL Ionized Calcium NO Total Bilirubin 0.5 (0.2-1.0) mg/dL AST 29 (10-42) IU/L ALT 14 (10-60) IU/L Alkaline Phosphatase 127 H (42-121) IU/L Total Protein 5.9 L (6.7-8.2) g/dL Albumin 2.6 L (3.2-5.5) g/dL Globulin 3.3 (2.1-4.2) g/dL Albumin/Globulin Ratio 0.8 L (1.0-2.2) 03/23/18 03/23/18 Range/Units 09:00 09:00 WBC 10.7 (4.8-10.8) x10^3/uL RBC 4.04 L (4.20-5.40) 10^6/uL Hgb 11.9 L (12.0-16.0) g/dL Hct 34.7 L (37.0-47.0) % MCV 85.9 (81.0-99.0) fL MCH 29.5 (27.0-31.0) pg MCHC 34.4 (32.0-36.0) g/dL RDW 19.7 H (12.0-15.0) % Plt Count 245 (130-450) 10^3/uL MPV 8.1 (7.9-10.8) fL Neut # (Auto) 8.5 H (1.5-6.6) 10^3/uL Lymph # (Auto) 1.6 (1.5-3.5) 10^3/uL Traverse # (Auto) 0.5 (0.0-1.0) 10^3/uL Eos # (Auto) 0.0 (0.0-0.7) 10^3/uL Baso # (Auto) 0.0 (0.0-0.1) 10^3/uL Absolute Nucleated RBC 0.00 x10^3/uL Nucleated RBC % 0.0 /100WBC Cord ABG pH Cord ABG pCO2 Cord ABG pO2 Cord ABG HCO3 Cord ABG Total CO2 Cord ABG Base Excess Cord ABG O2 Sat Cord VBG pH Cord VBG pCO2 Cord VBG pO2 Cord VBG HCO3 Cord VBG Total CO2 Cord VBG Base Excess Cord VBG O2 Sat Sodium 139 (135-145) mmol/L Potassium 2.3 L* (3.5-5.0) mmol/L Chloride 118 H (101-111) mmol/L Carbon Dioxide 15 L (21-32) mmol/L Anion Gap 6.0 (6-13) BUN 6 (6-20) mg/dL Creatinine 0.3 L (0.4-1.0) mg/dL Estimated GFR (MDRD) 259 (>89) Glucose 76 (70-100) mg/dL Calcium 5.9 L* (8.5-10.3) mg/dL Ionized Calcium Total Bilirubin 0.4 (0.2-1.0) mg/dL AST 17 (10-42) IU/L ALT 11 (10-60) IU/L Alkaline Phosphatase 90 (42-121) IU/L Total Protein 4.2 L (6.7-8.2) g/dL Albumin 2.0 L (3.2-5.5) g/dL Globulin 2.2 (2.1-4.2) g/dL Albumin/Globulin Ratio 0.9 L (1.0-2.2) Assessment/Plan - Problem List (1) Placenta previa affecting delivery Impression: S: no problems. Eat, ambulate, urinate, pump well. Pain is well-controlled. No heavy bleeding. O: Alert, NAD Abd soft, appropriately tender, ND Uterus firm, 1cm below U Incision c/d/i without erythema. 32yo P1 POD #1 s/p primary for bleeding previa at 33.5w, doing well. Baby in NICU at outside hospital also doing well. Discussed that she may be discharged when she prefers but most people would stay at least 2d postop. She would like to consider d/c today depending on how she feels.
--- NOTE | 2018-03-24 09:25 | Discharge Plan ---
Discharge Plan Disposition: 01 Home, Self Care Condition: Good Prescriptions: Benzonatate [Tessalon] 100 mg PO TID PRN #30 capsule PRN Reason: Cough Celecoxib [CeleBREX] 200 mg PO BID PRN #40 capsule PRN Reason: Pain Docusate Sodium [Dulcolax Stool Softener] 100 mg PO BID PRN #60 capsule PRN Reason: to soften stool oxyCODONE [Roxicodone] 5 - 10 mg PO Q4H PRN #20 tablet PRN Reason: moderate to severe pain Diet: Regular Activity Restrictions: see Dr. De Jesus's instrucitons Shower Restrictions: No Driving Restrictions: Yes (no driving while on oxycodone) No Smoking: If you smoke, Please STOP! Call for help. Follow-up with: Riya Rich DO [Provider Admit Priv/Credential] - ([facility] in 2w and 6w Follow up with M sometime in the next few months for preconception counseling. )
[2018-03-24] MEDS: LACTATED RINGERS 1,000 ML IV SCH ×2 (10:07→10:09)
[2018-03-24] MEDS: FLUTICASONE NASAL SPRAY NAS SCH (11:16)
[2018-03-24] MEDS: BENZONATATE 100 MG CAPSULE PO PRN (21:32)
[2018-03-24] MEDS: IPRATROPIUM/ALBUTEROL 3 ML NEB INH PRN (23:23)
[2018-03-25] MEDS: IPRATROPIUM/ALBUTEROL 3 ML NEB INH PRN (04:14)
[2018-03-25] MEDS: ACETAMINOPHEN 500 MG TABLET PO SCH ×3 (04:20→21:30)
[2018-03-25] MEDS ORDERED: SODIUM CHLORIDE INHALATION 3 ML NEB INH PRN (07:43)
[2018-03-25] MEDS ORDERED: ACETYLCYSTEINE 20% 30 ML VIAL INH SCH ×2 (08:00)
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
[2018-03-25] MEDS: oxyCODONE 5 MG TABLET PO PRN ×2 (08:23→12:21)
[2018-03-25] MEDS: guaiFENesin 600 MG TABLET PO SCH ×2 (08:23→21:31)
[2018-03-25] MEDS: BENZONATATE 100 MG CAPSULE PO PRN ×2 (08:23→15:57)
[2018-03-25] MEDS: DOCUSATE SODIUM 100 MG CAPSULE PO SCH ×2 (08:23→21:31)
--- NOTE | 2018-03-25 08:23 | PROVIDER PROGRESS NOTE ---
Objective - Vital Signs/Intake & Output Vital Signs: Vital Signs x48h Temp Pulse Pulse Resp BP Pulse Ox 03/25/18 06:00 99.0 F 89 16 125/72 97 03/25/18 04:15 82 18 Intake & Output: Intake & Output 03/22/18 03/23/18 03/24/18 03/25/18 23:59 23:59 23:59 23:59 Intake Total 1720 850 Output Total 4300 1900 Balance -2580 -1050 - Lab Results Fish Bones: 03/23/18 11:28 03/23/18 11:28 Assessment/Plan - Problem List (1) Placenta previa affecting delivery Impression: S: cough was scary last night, couldn't cough up a phlegm ball but that improved post neb. Eat and urinate OK. Has been reluctant to ambulate much. No heavy VB. Good pain control. Pumping OK. O: 99.0, 89, 125/72, 16, 97%RA Alert, hunched over in bed. Not trembling until I approach her to assist OOB and then she started to tremble. Fundus frim 1cm below U Incision c/d/i without erythema or induration LE symmetric without edema A/P: 32yo POD #2 s/p primary for bleeding previa 1) postop: pt has declined RN attempts to get her OOB much. She is requesting assistance to the bathroom and begins to tremble when she is approached. I emiliano pect that she is not cooperating as fully as she is able to. She was told that she is not meeting d/c milestones and cannot be discharged to see baby in [place] until she is able to independently ambulate. Otherwise doing well postop. 2) Productive cough: pt had a dry persistent cough throughout her , s/p PCP eval, normal CXR, neg Tb, neg whooping cough eval. Then 9d ago felt URI sx (mild sore throat, abrupt increase in nasal congestion, cough newly productive). Since that time she has not felt any better. Did not feel relief after delivery. CXR in PACU was normal. Normal RR. Lungs persistently CTA. Duoneb last night helped her to clear the phlegm ball which helped quite a bit. Pt without reactive component seen--no improvement in peak flows after duoneb. Peak flows quite low at 225-250 and I suspect that some of this is effort- dependant. Add mucinex. Add acapella per RT recommendation. Flu swab. Medicine consult due to remarkably low peak flows.
[2018-03-25] MEDS: CELECOXIB 100 MG CAPSULE PO SCH ×2 (09:00→21:31)
[2018-03-25] MEDS: SIMETHICONE CHEW 80 MG TABLET PO SCH ×3 (09:00→21:47)
[2018-03-25] MEDS: SODIUM CHLORIDE FLUSH 0.9% 10 ML SYRINGE IVP SCH (09:49)
[2018-03-25] MEDS: ONDANSETRON 4 MG/2 ML VIAL IVP PRN (09:49)
[2018-03-25] MEDS ORDERED: oxyCODONE 5 MG TABLET PO PRN (14:18)
[2018-03-25 17:39] LABS: BASOPHILS % (AUTO) 0.3 %; EOSINOPHILS # (AUTO) 0.1 10^3/uL (0.0-0.7); EOSINOPHILS % (AUTO) 0.6 %; HGB - HEMOGLOBIN 9.4 g/dL (12.0-16.0); LYMPHOCYTES # (AUTO) 1.9 10^3/uL (1.5-3.5); LYMPHOCYTES % (AUTO) 13.3 %; MEAN CORPUSCULAR HEMOGLOBIN 28.8 pg (27.0-31.0); MEAN CORPUSCULAR HGB CONC 32.6 g/dL (32.0-36.0); MEAN CORPUSCULAR VOLUME 88.3 fL (81.0-99.0); MEAN PLATELET VOLUME 7.5 fL (7.9-10.8); MONOCYTES # (AUTO) 0.9 10^3/uL (0.0-1.0); MONOCYTES % (AUTO) 6.1 %; NEUTROPHILS # (AUTO) 11.6 10^3/uL (1.5-6.6); NEUTROPHILS % (AUTO) 79.7 %; PLT - PLATELET COUNT 235 10^3/uL (130-450); RED BLOOD COUNT 3.26 10^6/uL (4.20-5.40); RED CELL DISTRIBUTION WIDTH 21.1 % (12.0-15.0); WHITE BLOOD COUNT 14.6 x10^3/uL (4.8-10.8)
[2018-03-25 17:41] LABS: CALCIUM 8.1 mg/dL (8.5-10.3); CREATININE 0.7 mg/dL (0.4-1.0)
[2018-03-25 18:18] LABS: PLATELET ESTIMATE, MANUAL NORMAL (130-450,000) (NORMAL); PLATELET MORPHOLOGY NORMAL APPEARANCE (NORMAL)
[2018-03-25 18:59] LABS: BILIRUBIN,URINE NEGATIVE (NEGATIVE); GLUCOSE, URINE (UA) NEGATIVE (NEGATIVE); KETONES,URINE (UA) NEGATIVE (NEGATIVE); LEUKOCYTE ESTERASE, URINE TRACE (NEGATIVE); NITRITE,URINE NEGATIVE (NEGATIVE); OCCULT BLOOD,URINE LARGE (NEGATIVE); PROTEIN,URINE TRACE mg/dL (NEGATIVE); UROBILINOGEN,URINE 0.2 (NORMAL) E.U./dL (NORMAL)
[2018-03-25 19:15] LABS: CLARITY,URINE HAZY (CLEAR)
[2018-03-25 19:20] LABS: BACTERIA,URINE None Seen /HPF (None Seen); RBC,URINE TNTC /HPF (0-5); SQUAMOUS EPITHELIAL CELL,UR FEW Squamous (<= Few)
[2018-03-26] MEDS: ACETAMINOPHEN 500 MG TABLET PO SCH (06:02)
[2018-03-26] MEDS: SODIUM CHLORIDE FLUSH 0.9% 10 ML SYRINGE IVP SCH (06:03)
[2018-03-26 06:28] LABS: BASOPHILS # (AUTO) 0.1 10^3/uL (0.0-0.1); BASOPHILS % (AUTO) 0.4 %; EOSINOPHILS # (AUTO) 0.2 10^3/uL (0.0-0.7); EOSINOPHILS % (AUTO) 1.4 %; HGB - HEMOGLOBIN 9.8 g/dL (12.0-16.0); LYMPHOCYTES # (AUTO) 2.2 10^3/uL (1.5-3.5); LYMPHOCYTES % (AUTO) 17.1 %; MEAN CORPUSCULAR HEMOGLOBIN 29.8 pg (27.0-31.0); MEAN CORPUSCULAR HGB CONC 33.3 g/dL (32.0-36.0); MEAN CORPUSCULAR VOLUME 89.6 fL (81.0-99.0); MONOCYTES # (AUTO) 0.7 10^3/uL (0.0-1.0); MONOCYTES % (AUTO) 5.6 %; NEUTROPHILS # (AUTO) 9.7 10^3/uL (1.5-6.6); NEUTROPHILS % (AUTO) 75.5 %; PLT - PLATELET COUNT 270 10^3/uL (130-450); RED CELL DISTRIBUTION WIDTH 21.4 % (12.0-15.0); WHITE BLOOD COUNT 12.9 x10^3/uL (4.8-10.8)
[2018-03-26 07:16] LABS: PLATELET ESTIMATE, MANUAL NORMAL (130-450,000) (NORMAL)
[2018-03-26 08:25] VITALS: BP 124/77
[2018-03-26] MEDS: guaiFENesin 600 MG TABLET PO SCH (09:57)
[2018-03-26] MEDS: BENZONATATE 100 MG CAPSULE PO PRN (09:58)
[2018-03-26] MEDS: DOCUSATE SODIUM 100 MG CAPSULE PO SCH (09:58)
[2018-03-26] MEDS: CELECOXIB 100 MG CAPSULE PO SCH (09:58)
[2018-03-26] MEDS: SIMETHICONE CHEW 80 MG TABLET PO SCH (09:58)
--- NOTE | 2018-03-26 10:14 | PROVIDER PROGRESS NOTE ---
Subjective - General Admit Date: 03/23/18 Procedure Date: 03/23/18 Post Op Days: 3 Procedure Performed: PLTC/S - Review of Systems Wound/Incisions: positive: Healing well, Dressing dry and intact, No drainage General: positive: No symptoms (Pt is feeling much better than yesterday). negative: Fever Pulmonary: positive: Cough, Sputum (clear with out any color) Cardiovascular: positive: No symptoms. negative: Chest pain, Palpitations Genitourinary: negative: Dysuria, Frequency, Burning All Other Systems: positive: Reviewed and negative Objective - Patient Data Reviewed Vital Signs: Yes Vital Signs: Vital Signs x48h Temp Pulse Resp BP Pulse Ox 03/26/18 08:25 36.7 C 103 H 17 124/77 98 03/26/18 05:30 37.3 C 88 16 117/80 97 Intake & Output: Intake and Output Totals x24h 03/24/18 03/25/18 03/26/18 23:59 23:59 23:59 Intake Total 850 300 Output Total 1900 600 Balance -1050 -600 300 - Lab Results Lab Results: 03/26/18 06:07 03/25/18 17:25 Other Lab Results: Lab Results x24hrs 03/26/18 03/25/18 03/25/18 Range/Units 06:07 18:45 17:25 WBC 12.9 H (4.8-10.8) x10^3/uL RBC 3.30 L (4.20-5.40) 10^6/uL Hgb 9.8 L (12.0-16.0) g/dL Hct 29.5 L (37.0-47.0) % MCV 89.6 (81.0-99.0) fL MCH 29.8 (27.0-31.0) pg MCHC 33.3 (32.0-36.0) g/dL RDW 21.4 H (12.0-15.0) % Plt Count 270 (130-450) 10^3/uL MPV 8.0 (7.9-10.8) fL Neut # (Auto) 9.7 H (1.5-6.6) 10^3/uL Lymph # (Auto) 2.2 (1.5-3.5) 10^3/uL [place] # (Auto) 0.7 (0.0-1.0) 10^3/uL Eos # (Auto) 0.2 (0.0-0.7) 10^3/uL Baso # (Auto) 0.1 (0.0-0.1) 10^3/uL Absolute Nucleated RBC 0.01 x10^3/uL Nucleated RBC % 0.0 /100WBC Manual Slide Review Indicated Platelet Estimate NORMAL (130-450,000) (NORMAL) Platelet Morphology (NORMAL) RBC Morph Micro Appear 1+ OVALOCYTES (NORMAL) Sodium 136 (135-145) mmol/L Potassium 3.6 (3.5-5.0) mmol/L Chloride 105 (101-111) mmol/L Carbon Dioxide 25 (21-32) mmol/L Anion Gap 6.0 (6-13) BUN 11 (6-20) mg/dL Creatinine 0.7 (0.4-1.0) mg/dL Estimated GFR (MDRD) 98 (>89) Glucose 91 (70-100) mg/dL Calcium 8.1 L (8.5-10.3) mg/dL Urine Color YELLOW Urine Clarity HAZY (CLEAR) Urine pH 7.0 (5.0-7.5) PH Ur Specific [place] <=1.005 (1.002-1.030) Urine Protein TRACE (NEGATIVE) mg/dL Urine Glucose (UA) NEGATIVE (NEGATIVE) mg/dL Urine Ketones NEGATIVE (NEGATIVE) mg/dL Urine Occult Blood LARGE H (NEGATIVE) Urine Nitrite NEGATIVE (NEGATIVE) Urine Bilirubin NEGATIVE (NEGATIVE) Urine Urobilinogen 0.2 (NORMAL) (NORMAL) E.U./dL Ur Leukocyte Esterase TRACE H (NEGATIVE) Urine RBC TNTC H (0-5) /HPF Urine WBC 4-5 (0-5) /HPF Ur Squamous Epith Cells FEW Squamous (<= Few) Urine Bacteria None Seen (None Seen) /HPF Urine Culture Comments INDICATED 03/25/18 Range/Units 17:25 WBC 14.6 H (4.8-10.8) x10^3/uL RBC 3.26 L (4.20-5.40) 10^6/uL Hgb 9.4 L (12.0-16.0) g/dL Hct 28.8 L (37.0-47.0) % MCV 88.3 (81.0-99.0) fL MCH 28.8 (27.0-31.0) pg MCHC 32.6 (32.0-36.0) g/dL RDW 21.1 H (12.0-15.0) % Plt Count 235 (130-450) 10^3/uL MPV 7.5 L (7.9-10.8) fL Neut # (Auto) 11.6 H (1.5-6.6) 10^3/uL Lymph # (Auto) 1.9 (1.5-3.5) 10^3/uL [place] # (Auto) 0.9 (0.0-1.0) 10^3/uL Eos # (Auto) 0.1 (0.0-0.7) 10^3/uL Baso # (Auto) 0.0 (0.0-0.1) 10^3/uL Absolute Nucleated RBC 0.02 x10^3/uL Nucleated RBC % 0.1 /100WBC Manual Slide Review Indicated Platelet Estimate NORMAL (130-450,000) (NORMAL) Platelet Morphology NORMAL APPEARANCE (NORMAL) RBC Morph Micro Appear 2+ POIKILOCYTOSIS (NORMAL) Sodium (135-145) mmol/L Potassium (3.5-5.0) mmol/L Chloride (101-111) mmol/L Carbon Dioxide (21-32) mmol/L Anion Gap (6-13) BUN (6-20) mg/dL Creatinine (0.4-1.0) mg/dL Estimated GFR (MDRD) (>89) Glucose (70-100) mg/dL Calcium (8.5-10.3) mg/dL Urine Color Urine Clarity (CLEAR) Urine pH (5.0-7.5) PH Ur Specific [place] (1.002-1.030) Urine Protein (NEGATIVE) mg/dL Urine Glucose (UA) (NEGATIVE) mg/dL Urine Ketones (NEGATIVE) mg/dL Urine Occult Blood (NEGATIVE) Urine Nitrite (NEGATIVE) Urine Bilirubin (NEGATIVE) Urine Urobilinogen (NORMAL) E.U./dL Ur Leukocyte Esterase (NEGATIVE) Urine RBC (0-5) /HPF Urine WBC (0-5) /HPF Ur Squamous Epith Cells (<= Few) Urine Bacteria (None Seen) /HPF Urine Culture Comments - Imaging Results Radiology Imaging: positive: Final report received (normal) - Current Medications Current Medications: Current Medications Generic Name Dose Route Start Last Admin Trade Name Freq PRN Reason Stop Dose Admin Acetaminophen 1,000 mg 03/23/18 12:00 03/26/18 06:02 Tylenol PO 1,000 mg Q8H KEISHA Administration Albuterol/Ipratropium 3 ml 03/24/18 22:37 03/25/18 04:14 Duoneb INH 3 ml Q4HR PRN Administration Wheezing Benzonatate 100 mg 03/23/18 10:50 03/26/18 09:58 Tessalon PO 100 mg TID PRN Administration Cough Celecoxib 200 mg 03/23/18 21:00 03/26/18 09:58 Celebrex PO 200 mg BID KEISHA Administration Docusate Sodium 100 mg 03/23/18 21:00 03/26/18 09:58 Colace 100mg Capsule PO 100 mg BID KEISHA Administration Fluticasone Propionate 1 sprays 03/23/18 12:00 03/24/18 11:16 Flonase NEIDA 1 applic DAILY KEISHA Administration Guaifenesin 1,200 mg 03/25/18 08:30 03/26/18 09:57 Mucinex PO 1,200 mg BID KEISHA Administration Lactated Ringer's 1,000 mls @ 100 mls/hr 03/23/18 12:00 03/24/18 10:09 Lr IV Not Given .Q10H KEISHA Ondansetron HCl 4 mg 03/23/18 11:47 03/25/18 09:49 Zofran Inj IVP 4 mg Q4H PRN Administration Nausea / Vomiting Ondansetron HCl 4 mg 03/23/18 11:47 03/25/18 14:22 Zofran Odt TL 4 mg Q4H PRN Administration Nausea / Vomiting Simethicone 80 mg 03/23/18 14:00 03/26/18 09:58 Mylicon PO 80 mg TID KEISHA Administration Sodium Chloride 10 ml 03/23/18 11:47 03/24/18 20:09 Normal Saline Flush 0.9% IVP 10 ml PRN PRN Administration NEEDED PER PROVIDER ORDERS Sodium Chloride 10 ml 03/23/18 17:00 03/26/18 06:03 Normal Saline Flush 0.9% IVP 10 ml 0100,0900,1700 KEISHA Administration - Physical Exam Wound/Incisions: positive: Healing well, Dressing dry and intact, No drainage General Appearance: positive: No acute distress, Alert ENT: positive: ENT inspection nml Neck: positive: Nml inspection Respiratory: positive: Chest non-tender, No respiratory distress, Breath sounds nml. negative: Wheezes, Rales Cardiovascular: positive: Regular rate & rhythm, No murmur, No gallop Abdomen: positive: Non-tender, No organomegaly, Nml bowel sounds, No distention, Mass (U-2). negative: Tenderness Back: negative: CVA tenderness (R), CVA tenderness (L) Extremities: negative: Calf tenderness, Salvatore's sign/cords Impression/Plan - Problem List Problem List: POD#3 PLTC/S progressing clear cough with out any color or mack or wheezes Send home RTC 2 and 6 weeks Call if develops chills fevers Discharge meds already written.
--- NOTE | 2018-03-26 10:21 | POST OP PROGRESS NOTE ---
Subjective - General Admit Date: 03/23/18 Procedure Date: 03/23/18 Post Op Days: 3 Procedure Performed: PLTC/S - Review of Systems Wound/Incisions: positive: Healing well, Dressing dry and intact, No drainage General: positive: No symptoms (Pt is feeling much better than yesterday). negative: Fever Pulmonary: positive: Cough, Sputum (clear with out any color) Cardiovascular: positive: No symptoms. negative: Chest pain, Palpitations Genitourinary: negative: Dysuria, Frequency, Burning All Other Systems: positive: Reviewed and negative
--- NOTE | 2018-03-26 10:24 | PROVIDER PROGRESS NOTE ---
Subjective - General Admit Date: 03/23/18 Procedure Date: 03/23/18 Post Op Days: 3 Procedure Performed: PLTC/S - Review of Systems Wound/Incisions: positive: Healing well, Dressing dry and intact, No drainage General: positive: No symptoms (Pt is feeling much better than yesterday). negative: Fever Pulmonary: positive: Cough, Sputum (clear with out any color) Cardiovascular: positive: No symptoms. negative: Chest pain, Palpitations Genitourinary: negative: Dysuria, Frequency, Burning All Other Systems: positive: Reviewed and negative Objective - Patient Data Vital Signs: Vital Signs x48h Temp Pulse Resp BP Pulse Ox 03/26/18 08:25 36.7 C 103 H 17 124/77 98 03/26/18 05:30 37.3 C 88 16 117/80 97 Intake & Output: Intake and Output Totals x24h 03/24/18 03/25/18 03/26/18 23:59 23:59 23:59 Intake Total 850 300 Output Total 1900 600 Balance -1050 -600 300 - Lab Results Lab Results: 03/26/18 06:07 03/25/18 17:25 Other Lab Results: Lab Results x24hrs 03/26/18 03/25/18 03/25/18 Range/Units 06:07 18:45 17:25 WBC 12.9 H (4.8-10.8) x10^3/uL RBC 3.30 L (4.20-5.40) 10^6/uL Hgb 9.8 L (12.0-16.0) g/dL Hct 29.5 L (37.0-47.0) % MCV 89.6 (81.0-99.0) fL MCH 29.8 (27.0-31.0) pg MCHC 33.3 (32.0-36.0) g/dL RDW 21.4 H (12.0-15.0) % Plt Count 270 (130-450) 10^3/uL MPV 8.0 (7.9-10.8) fL Neut # (Auto) 9.7 H (1.5-6.6) 10^3/uL Lymph # (Auto) 2.2 (1.5-3.5) 10^3/uL [place] # (Auto) 0.7 (0.0-1.0) 10^3/uL Eos # (Auto) 0.2 (0.0-0.7) 10^3/uL Baso # (Auto) 0.1 (0.0-0.1) 10^3/uL Absolute Nucleated RBC 0.01 x10^3/uL Nucleated RBC % 0.0 /100WBC Manual Slide Review Indicated Platelet Estimate NORMAL (130-450,000) (NORMAL) Platelet Morphology (NORMAL) RBC Morph Micro Appear 1+ OVALOCYTES (NORMAL) Sodium 136 (135-145) mmol/L Potassium 3.6 (3.5-5.0) mmol/L Chloride 105 (101-111) mmol/L Carbon Dioxide 25 (21-32) mmol/L Anion Gap 6.0 (6-13) BUN 11 (6-20) mg/dL Creatinine 0.7 (0.4-1.0) mg/dL Estimated GFR (MDRD) 98 (>89) Glucose 91 (70-100) mg/dL Calcium 8.1 L (8.5-10.3) mg/dL Urine Color YELLOW Urine Clarity HAZY (CLEAR) Urine pH 7.0 (5.0-7.5) PH Ur Specific [place] <=1.005 (1.002-1.030) Urine Protein TRACE (NEGATIVE) mg/dL Urine Glucose (UA) NEGATIVE (NEGATIVE) mg/dL Urine Ketones NEGATIVE (NEGATIVE) mg/dL Urine Occult Blood LARGE H (NEGATIVE) Urine Nitrite NEGATIVE (NEGATIVE) Urine Bilirubin NEGATIVE (NEGATIVE) Urine Urobilinogen 0.2 (NORMAL) (NORMAL) E.U./dL Ur Leukocyte Esterase TRACE H (NEGATIVE) Urine RBC TNTC H (0-5) /HPF Urine WBC 4-5 (0-5) /HPF Ur Squamous Epith Cells FEW Squamous (<= Few) Urine Bacteria None Seen (None Seen) /HPF Urine Culture Comments INDICATED 03/25/18 Range/Units 17:25 WBC 14.6 H (4.8-10.8) x10^3/uL RBC 3.26 L (4.20-5.40) 10^6/uL Hgb 9.4 L (12.0-16.0) g/dL Hct 28.8 L (37.0-47.0) % MCV 88.3 (81.0-99.0) fL MCH 28.8 (27.0-31.0) pg MCHC 32.6 (32.0-36.0) g/dL RDW 21.1 H (12.0-15.0) % Plt Count 235 (130-450) 10^3/uL MPV 7.5 L (7.9-10.8) fL Neut # (Auto) 11.6 H (1.5-6.6) 10^3/uL Lymph # (Auto) 1.9 (1.5-3.5) 10^3/uL [place] # (Auto) 0.9 (0.0-1.0) 10^3/uL Eos # (Auto) 0.1 (0.0-0.7) 10^3/uL Baso # (Auto) 0.0 (0.0-0.1) 10^3/uL Absolute Nucleated RBC 0.02 x10^3/uL Nucleated RBC % 0.1 /100WBC Manual Slide Review Indicated Platelet Estimate NORMAL (130-450,000) (NORMAL) Platelet Morphology NORMAL APPEARANCE (NORMAL) RBC Morph Micro Appear 2+ POIKILOCYTOSIS (NORMAL) Sodium (135-145) mmol/L Potassium (3.5-5.0) mmol/L Chloride (101-111) mmol/L Carbon Dioxide (21-32) mmol/L Anion Gap (6-13) BUN (6-20) mg/dL Creatinine (0.4-1.0) mg/dL Estimated GFR (MDRD) (>89) Glucose (70-100) mg/dL Calcium (8.5-10.3) mg/dL Urine Color Urine Clarity (CLEAR) Urine pH (5.0-7.5) PH Ur Specific [place] (1.002-1.030) Urine Protein (NEGATIVE) mg/dL Urine Glucose (UA) (NEGATIVE) mg/dL Urine Ketones (NEGATIVE) mg/dL Urine Occult Blood (NEGATIVE) Urine Nitrite (NEGATIVE) Urine Bilirubin (NEGATIVE) Urine Urobilinogen (NORMAL) E.U./dL Ur Leukocyte Esterase (NEGATIVE) Urine RBC (0-5) /HPF Urine WBC (0-5) /HPF Ur Squamous Epith Cells (<= Few) Urine Bacteria (None Seen) /HPF Urine Culture Comments - Current Medications Current Medications: Current Medications Generic Name Dose Route Start Last Admin Trade Name Freq PRN Reason Stop Dose Admin Acetaminophen 1,000 mg 03/23/18 12:00 03/26/18 06:02 Tylenol PO 1,000 mg Q8H KEISHA Administration Albuterol/Ipratropium 3 ml 03/24/18 22:37 03/25/18 04:14 Duoneb INH 3 ml Q4HR PRN Administration Wheezing Benzonatate 100 mg 03/23/18 10:50 03/26/18 09:58 Tessalon PO 100 mg TID PRN Administration Cough Celecoxib 200 mg 03/23/18 21:00 03/26/18 09:58 Celebrex PO 200 mg BID KEISHA Administration Docusate Sodium 100 mg 03/23/18 21:00 03/26/18 09:58 Colace 100mg Capsule PO 100 mg BID KEISHA Administration Fluticasone Propionate 1 sprays 03/23/18 12:00 03/24/18 11:16 Flonase NEIDA 1 applic DAILY KEISHA Administration Guaifenesin 1,200 mg 03/25/18 08:30 03/26/18 09:57 Mucinex PO 1,200 mg BID KEISHA Administration Lactated Ringer's 1,000 mls @ 100 mls/hr 03/23/18 12:00 03/24/18 10:09 Lr IV Not Given .Q10H KEISHA Ondansetron HCl 4 mg 03/23/18 11:47 03/25/18 09:49 Zofran Inj IVP 4 mg Q4H PRN Administration Nausea / Vomiting Ondansetron HCl 4 mg 03/23/18 11:47 03/25/18 14:22 Zofran Odt TL 4 mg Q4H PRN Administration Nausea / Vomiting Simethicone 80 mg 03/23/18 14:00 03/26/18 09:58 Mylicon PO 80 mg TID KEISHA Administration Sodium Chloride 10 ml 03/23/18 11:47 03/24/18 20:09 Normal Saline Flush 0.9% IVP 10 ml PRN PRN Administration NEEDED PER PROVIDER ORDERS Sodium Chloride 10 ml 03/23/18 17:00 03/26/18 06:03 Normal Saline Flush 0.9% IVP 10 ml 0100,0900,1700 KEISHA Administration - Physical Exam Wound/Incisions: positive: Healing well, Dressing dry and intact, No drainage General Appearance: positive: No acute distress, Alert Respiratory: positive: Chest non-tender, No respiratory distress, Breath sounds nml. negative: Wheezes, Rales Cardiovascular: positive: Regular rate & rhythm, No murmur Abdomen: positive: Non-tender, No organomegaly, Nml bowel sounds, No distention, Mass (U-2) Back: negative: CVA tenderness (R), CVA tenderness (L) Skin: positive: Color nml, No rash, Warm Extremities: negative: Calf tenderness, Salvatore's sign/cords ABX Reporting Has patient been on IV antibiotics over the past 48 hours?: Yes Impression/Plan - Problem List Problem List: POD #3 S/P PLTC/S for previa Pt is much improved. Lungs clear with out fever Discharge meds written. RTC 2/6 weeks Call for chills, temps.
--- NOTE | 2018-03-29 13:33 | DISCHARGE SUMMARY ---
Physician: Brittany De Jesus MD DATE OF ADMISSION: 03/23/2018 DATE OF DISCHARGE: 03/26/2018 ADMISSION DIAGNOSES 1. Intrauterine at 33 weeks and 4 days. 2. Placenta previa with active bleeding. DISCHARGE DIAGNOSES 1. Status post section. 2. Bronchitis. OPERATIONS AND PROCEDURES: 03/23/2018 primary section, WAS NOT LOW TRANSVERSE. HOSPITAL COURSE: Patient has had a known placenta previa and has had some spotting for the past couple of weeks that has been intermittent. For this, she got betamethasone 1 dose yesterday. Today she presents with active bleeding with soaking 2 super pads at home. She comes in by ambulance. She continued to actively bleed in triage and had a deceleration, so at that point, section was called. The surgery was uncomplicated, and her blood loss was normal, considering her previa. Due to her status, I did not want to go through the placenta on the way of the baby. I did the uterine incision a bit higher than usual, and following delivery, it was found to be between the lower and mid-uterine segment. I would not call this a low transverse section, nor would I recommend future labors on this scar. The patient's hospital course was also remarkable for a productive cough, causing some subjective respiratory distress. Patient received a respiratory therapy consult with nebulizers that did not improve her peak flow. Therefore, reactive airway is not an issue. She had a flu swab that was negative. She had a normal chest x-ray. She was sent home with supportive measures, including Afrin and Mucinex. By postoperative day 3, the patient was requesting discharge home. She had been offered discharge much sooner than this to go see her baby in the NICU, and she did decline that option. By discharge, she was eating, ambulating, and urinating well. She was pumping her breasts. She did not have any problems with pain control. PHYSICAL EXAMINATION: She is afebrile with normal vital signs, alert, pleasant, in no apparent distress. Abdomen soft, appropriately tender, nondistended. Fundus firm, nontender, and 2 cm below the umbilicus. Incision clean, dry, and intact without erythema or induration. Lower extremities with trace edema and no erythema. DISCHARGE MEDICATIONS 1. Continue vitamins. 2. Afrin and Mucinex p.r.n. 3. Oxycodone p.r.n. severe pain. 4. Ibuprofen p.r.n. pain. 5. Colace p.r.n. to soften stool. PRECAUTIONS: Discharge precautions and routine precautions were given. FOLLOWUP: At 2 weeks and 6 weeks in clinic. DISPOSITION: Home. CONDITION: Good. TD: 03/29/2018 12:37 MTDD
== END 2018-03-26 15:28 | disposition home or self-care (01) | DRG 766 ==
LOC: SDS 09:49 → WFO 09:49 → FBP 10:24 → SDS 10:24 → FBP 10:25 → WFO 10:25 → FBP 10:29
PROVIDERS: ADMIT Obstetrics & Gynecology; ATTEND Obstetrics & Gynecology
PROC: 10D00Z0 Extraction of Products of Conception, High, Open Approach (ICD-10-PCS; principal; 2018-03-23 09:30)
PROC: 3E0234Z Introduction of Serum, Toxoid and Vaccine into Muscle, Percutaneous Approach (ICD-10-PCS; 2018-03-25)
DX: O44.13 Complete placenta previa with hemorrhage, third trimester (principal); Z37.0 Single live birth; Z3A.33 33 weeks gestation of pregnancy; J40 Bronchitis, not specified as acute or chronic; O99.513 Diseases of the respiratory system complicating pregnancy, third trimester; Z23 Encounter for immunization
CPT/HCPCS: 36415; 71045; 80048; 80053; 81001; 82803; 85025; 85027; 86850; 86900; 86901; 86920; 87086; 87275; 87276; 90686; 94150; 94640; 99212

== ENCOUNTER 2018-04-08 13:34 | Emergency (ER) | payer OTHER ==
[2018-04-08 16:13] LABS: BASOPHILS # (AUTO) 0.1 10^3/uL (0.0-0.1); EOSINOPHILS # (AUTO) 0.3 10^3/uL (0.0-0.7); EOSINOPHILS % (AUTO) 3.6 %; LYMPHOCYTES # (AUTO) 1.8 10^3/uL (1.5-3.5); MEAN CORPUSCULAR HEMOGLOBIN 28.4 pg (27.0-31.0); MEAN CORPUSCULAR HGB CONC 32.3 g/dL (32.0-36.0); MEAN CORPUSCULAR VOLUME 88.1 fL (81.0-99.0); MEAN PLATELET VOLUME 7.5 fL (7.9-10.8); MONOCYTES # (AUTO) 0.5 10^3/uL (0.0-1.0); MONOCYTES % (AUTO) 5.4 %; NEUTROPHILS # (AUTO) 6.1 10^3/uL (1.5-6.6); PLT - PLATELET COUNT 412 10^3/uL (130-450); RED BLOOD COUNT 4.57 10^6/uL (4.20-5.40); WHITE BLOOD COUNT 8.8 x10^3/uL (4.8-10.8)
--- NOTE | 2018-04-08 16:21 | ED Physician Documentation ---
PD HPI FEMALE - Stated complaint Stated Complaint: HEAVY BLEEDING POST C-SEC 2 WKS - Chief complaint Chief Complaint: General - History obtained from History obtained from: Patient - History of Present Illness Timing - onset: Today Timing - duration: Days (1) Timing - details: Abrupt onset, Still present Associated symptoms: Abdominal pain, Vaginal bleeding. 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 denies: Fever, Chills, Myalgias Throat: denies: Sore throat Cardiac: denies: Chest pain / pressure Respiratory: denies: Cough GI: reports: Abdominal Pain, Nausea. denies: Abdominal Swelling, Vomiting, Diarrhea : denies: Dysuria, Frequency Skin: denies: Rash PD PAST MEDICAL HISTORY - Past Medical History Past Medical History: No Cardiovascular: None Respiratory: Other Neuro: None Endocrine/Autoimmune: None GI: GERD, Ulcers, Other : None HEENT: None Psych: None Musculoskeletal: None Derm: None - Past Surgical History Past Surgical History: Yes Ortho: Other /DIRECTOR OPERATING ROOM: section Cardiovascular: Other - Present Medications Home Medications: Ambulatory Orders Medication Instructions Recorded Confirmed Celecoxib [CeleBREX] 200 mg PO BID PRN #40 capsule 03/24/18 Docusate Sodium [Dulcolax Stool 100 mg PO BID PRN #60 capsule 03/24/18 Softener] Fluticasone [Flonase] 1 sprays NEIDA DAILY bottle 03/24/18 oxyCODONE [Roxicodone] 5 - 10 mg PO Q4H PRN #20 tablet 03/24/18 Methylergonovine Maleate 0.2 mg PO TID #9 tablet 04/08/18 [Methergine] Ondansetron Odt [Zofran] 4 mg TL Q6H PRN #15 tablet 04/08/18 - Allergies Allergies/Adverse Reactions: Allergies Allergy/AdvReac Type Severity Reaction Status Date / Time No Known Drug Allergies Allergy Verified 11/15/16 06:46 - Social History Does the pt smoke?: No Smoking Status: Never smoker Does the pt drink ETOH?: No Does the pt have substance abuse?: No - Immunizations Immunizations are current?: Yes - POLST Patient has POLST: No POLST Status: Full Code PD ED PE NORMAL - Vitals Vital signs reviewed: Yes - General General: Alert and oriented X 3, Well developed/nourished - Neck Neck: Supple, no meningeal sign, No adenopathy - Cardiac Cardiac: RRR, No murmur - Respiratory Respiratory: Clear bilaterally - Abdomen Abdomen: Normal bowel sounds, Soft, Non distended, No organomegaly - Female Female : Deferred - Back Back: No CVA TTP - Derm Derm: Normal color, Warm and dry - Extremities Extremities: No tenderness to palpate, Normal ROM s pain, No calf tenderness / cord - Neuro Neuro: Alert and oriented X 3, No motor deficit, Normal speech Results - Vitals Vitals: Vital Signs - 24 hr 04/08/18 13:44 Temperature 36.9 C Heart Rate 81 Respiratory 15 Rate Blood Pressure 122/72 O2 Saturation 99 Oxygen O2 Source Room air - Labs Labs: Laboratory Tests 04/08/18 15:54 WBC 8.8 RBC 4.57 Hgb 13.0 Hct 40.2 MCV 88.1 MCH 28.4 MCHC 32.3 RDW 20.0 H Plt Count 412 MPV 7.5 L Neut # (Auto) 6.1 Lymph # (Auto) 1.8 [place] # (Auto) 0.5 Eos # (Auto) 0.3 Baso # (Auto) 0.1 Absolute Nucleated RBC 0.01 Nucleated RBC % 0.1 PD MEDICAL DECISION MAKING - ED course Complexity details: reviewed results, re-evaluated patient (cramping increased after the Methergine and she got nauseated from it. Improved with IV meds. ), considered differential, d/w government operations consultant (Dr. Rich - who directs giving Methergine tid for 3 days. F/U in office Wednesday/Wednesday.) Departure - Departure Disposition: 01 Home, Self Care Clinical Impression: bleeding Qualifiers: hemorrhage type: delayed hemorrhage Qualified Code(s): O72.2 - Delayed and secondary hemorrhage Condition: Stable Record reviewed to determine appropriate education?: Yes Instructions: ED Bleed Irregular Vaginal Follow-Up: Riya Rich DO [Provider Admit Priv/Credential] - Prescriptions: Methylergonovine Maleate [Methergine] 0.2 mg PO TID #9 tablet Ondansetron Odt [Zofran] 4 mg TL Q6H PRN #15 tablet PRN Reason: Nausea / Vomiting Comments: Drink lots of fluids. Tylenol or ibuprofen if needed for pains and cramps. Methergine 3 times daily for the next 3 days. Follow-up with Dr. Tapia's office Wednesday or Wednesday, call for an appointment. Return to the ER if significant bleeding again, fever, vomiting, other concerns. Ondansetron if needed for nausea. Discharge Date/Time: 04/08/18 19:29
[2018-04-08 16:24] LABS: ALBUMIN 3.8 g/dL (3.2-5.5); BILIRUBIN,TOTAL 0.8 mg/dL (0.2-1.0); CALCIUM 9.1 mg/dL (8.5-10.3); CREATININE 0.5 mg/dL (0.4-1.0); TOTAL PROTEIN 7.8 g/dL (6.7-8.2)
[2018-04-08] MEDS ORDERED: SODIUM CHLORIDE 0.9% 1,000 ML IV ONE (16:34)
[2018-04-08] MEDS ORDERED: METHYLERGONOVINE 0.2 MG/ML AMP IM STA (16:35)
[2018-04-08] MEDS ORDERED: KETOROLAC 15 MG/ML VIAL IVP STA (16:35)
[2018-04-08] MEDS ORDERED: TRANEXAMIC ACID 1,000 MG in SODIUM CHLORIDE 0.9% 100ML 100 ML IV STA (16:37)
[2018-04-08 17:28] VITALS: BP 137/90
[2018-04-08] MEDS ORDERED: MORPHINE 10 MG/ML VIAL IVP STA (17:42)
[2018-04-08] MEDS ORDERED: ONDANSETRON 4 MG/2 ML VIAL IVP STA (17:42)
[2018-04-08] MEDS ORDERED: ONDANSETRON ODT 4 MG TABLET TL STA (19:11)
== END 2018-04-08 19:29 | disposition home or self-care (01) ==
LOC: ED 13:34
DX: O72.2 Delayed and secondary postpartum hemorrhage (principal); R11.0 Nausea
CPT/HCPCS: 36415; 80053; 85025; 96365; 96372; 96375; 99284; Q0162

== ENCOUNTER 2018-04-10 05:22 | Emergency (ER) | payer OTHER ==
[2018-04-10 06:32] LABS: ALBUMIN 3.5 g/dL (3.2-5.5); ALBUMIN/GLOBULIN RATIO 0.9 (1.0-2.2); BILIRUBIN,TOTAL 0.3 mg/dL (0.2-1.0); CALCIUM 8.8 mg/dL (8.5-10.3); CREATININE 0.6 mg/dL (0.4-1.0); TOTAL PROTEIN 7.2 g/dL (6.7-8.2)
[2018-04-10 06:35] LABS: BASOPHILS # (AUTO) 0.1 10^3/uL (0.0-0.1); EOSINOPHILS # (AUTO) 0.4 10^3/uL (0.0-0.7); MONOCYTES # (AUTO) 0.5 10^3/uL (0.0-1.0)
[2018-04-10 06:36] LABS: BASOPHILS % (AUTO) 0.9 %; EOSINOPHILS % (AUTO) 5.9 %; HGB - HEMOGLOBIN 12.4 g/dL (12.0-16.0); LYMPHOCYTES # (AUTO) 1.8 10^3/uL (1.5-3.5); LYMPHOCYTES % (AUTO) 25.1 %; MEAN CORPUSCULAR HEMOGLOBIN 29.8 pg (27.0-31.0); MEAN CORPUSCULAR HGB CONC 34.1 g/dL (32.0-36.0); MEAN CORPUSCULAR VOLUME 87.6 fL (81.0-99.0); MEAN PLATELET VOLUME 7.5 fL (7.9-10.8); MONOCYTES % (AUTO) 6.8 %; NEUTROPHILS # (AUTO) 4.3 10^3/uL (1.5-6.6); NEUTROPHILS % (AUTO) 61.3 %; PLT - PLATELET COUNT 345 10^3/uL (130-450); RED BLOOD COUNT 4.16 10^6/uL (4.20-5.40); RED CELL DISTRIBUTION WIDTH 19.9 % (12.0-15.0); WHITE BLOOD COUNT 7.1 x10^3/uL (4.8-10.8)
--- NOTE | 2018-04-10 07:02 | ED Physician Documentation ---
PD HPI FEMALE - Stated complaint Stated Complaint: FEMALE 2 WEEKS POST PART - Chief complaint Chief Complaint: Abd Pain - History obtained from History obtained from: Patient - History of Present Illness Timing - onset: Enter time (0500), Today Timing - duration: Minutes Timing - details: Abrupt onset, Still present Associated symptoms: Vaginal bleeding Contributing factors: Other (S/P 2 wks ago) [employer] History: G (1), P (1), Prior C section Similar symptoms before: Diagnosis (post op bleeding) Recently seen: Emergency Dept - Additional information Additional information: 32-year-old female had a section done about 2 weeks ago for placenta previa that was bleeding and this was a high . Subsequently she developed bleeding 2 days ago was seen in the emergency department and placed on Methergine. She had some improvement with some cramping and improvement in her bleeding and then about 5 AM this morning she got up to go to the bathroom had significant cramping and passed another gush of blood. She is come to the emergency department this morning because of her bleeding. She states that in route to the hospital she has had a pad in place and this is not saturated. She does continue to have some bleeding. Review of Systems Constitutional: denies: Fever Eyes: denies: Decreased vision Ears: denies: Ear pain Nose: denies: Congestion Throat: denies: Sore throat Cardiac: denies: Chest pain / pressure, Palpitations Respiratory: denies: Dyspnea, Cough GI: denies: Abdominal Pain, Nausea, Vomiting : reports: Vaginal bleeding. denies: Dysuria, Frequency Skin: denies: Rash Musculoskeletal: denies: Neck pain, Back pain, Extremity pain PD PAST MEDICAL HISTORY - Past Medical History Cardiovascular: None Respiratory: Other Neuro: None Endocrine/Autoimmune: None GI: GERD, Ulcers, Other : None HEENT: None Psych: None Musculoskeletal: None Derm: None - Past Surgical History Past Surgical History: Yes Ortho: Other /[employer]: section Cardiovascular: Other - Present Medications Home Medications: Ambulatory Orders Medication Instructions Recorded Confirmed Celecoxib [CeleBREX] 200 mg PO BID PRN #40 capsule 03/24/18 Docusate Sodium [Dulcolax Stool 100 mg PO BID PRN #60 capsule 03/24/18 Softener] Fluticasone [Flonase] 1 sprays NEIDA DAILY bottle 03/24/18 oxyCODONE [Roxicodone] 5 - 10 mg PO Q4H PRN #20 tablet 03/24/18 Methylergonovine Maleate 0.2 mg PO TID #9 tablet 04/08/18 [Methergine] Ondansetron Odt [Zofran] 4 mg TL Q6H PRN #15 tablet 04/08/18 Nitrofurantoin [Macrobid] 100 mg PO BID #14 capsule 04/10/18 - Allergies Allergies/Adverse Reactions: Allergies Allergy/AdvReac Type Severity Reaction Status Date / Time No Known Drug Allergies Allergy Verified 04/10/18 05:31 - Social History Does the pt smoke?: No Smoking Status: Never smoker Does the pt drink ETOH?: No Does the pt have substance abuse?: No - Immunizations Immunizations are current?: Yes - POLST Patient has POLST: No POLST Status: Full Code PD ED PE NORMAL - Vitals Vital signs reviewed: Yes (normal ) - General General: Alert and oriented X 3, No acute distress, Well developed/nourished - HEENT HEENT: Atraumatic, PERRL, EOMI - Neck Neck: Supple, no meningeal sign, No bony TTP - Cardiac Cardiac: RRR, No murmur - Respiratory Respiratory: No respiratory distress, Clear bilaterally - Abdomen Abdomen: Soft, Non tender, Other (The surgical site is not inflamed looks like it is healing well ) - Back Back: No CVA TTP, No spinal TTP - Derm Derm: Normal color, Warm and dry, No rash - Extremities Extremities: No deformity, No edema - Neuro Neuro: Alert and oriented X 3, telephone sterilizer 2-12 intact, No motor deficit, No sensory deficit, Normal speech Eye Opening: Spontaneous Motor: Obeys Commands Verbal: Oriented GCS Score: 15 - Psych Psych: Normal mood, Normal affect Results - Vitals Vitals: Vital Signs - 24 hr 04/10/18 05:25 Temperature 37.0 C Heart Rate 69 Respiratory 18 Rate Blood Pressure 112/71 O2 Saturation 100 Oxygen O2 Source Room air - Labs Labs: Laboratory Tests 04/10/18 04/10/18 06:13 06:13 WBC 7.1 RBC 4.16 L Hgb 12.4 Hct 36.4 L MCV 87.6 MCH 29.8 MCHC 34.1 RDW 19.9 H Plt Count 345 MPV 7.5 L Neut # (Auto) 4.3 Lymph # (Auto) 1.8 [place] # (Auto) 0.5 Eos # (Auto) 0.4 Baso # (Auto) 0.1 Absolute Nucleated RBC 0.01 Nucleated RBC % 0.1 Sodium 139 Potassium 3.8 Chloride 104 Carbon Dioxide 27 Anion Gap 8.0 BUN 16 Creatinine 0.6 Estimated GFR (MDRD) 117 Glucose 98 Calcium 8.8 Total Bilirubin 0.3 AST 22 ALT 26 Alkaline Phosphatase 138 H Total Protein 7.2 Albumin 3.5 Globulin 3.7 Albumin/Globulin Ratio 0.9 L Lipase 44 - Rads (name of study) pelvic ultrasound Radiology: Prelim report reviewed (Impression: 1. There is a complex fluid within the endometrial canal with no internal vascularity or vascularity within the central portion of the myometrium. Prominent vascularity is noted along the periphery of the myometrium. 2. The ovaries are not visualized but there are no known abnormalities noted in the right or left adnexa.), EMP read indepedently, See rad report PD MEDICAL DECISION MAKING - ED course Complexity details: considered differential, d/w patient, d/w family, d/w independent consultant (Dr. Rich recommends u/s today ) ED course: 33 y/o female with delayed bleeding does not appear to have products of conception in the uterus. The patient has bleeding that appears controlled now and she is discharged to home to continue her methergine and follow up with [facility]. Departure - Departure Disposition: 01 Home, Self Care Clinical Impression: bleeding Qualifiers: hemorrhage type: delayed hemorrhage Qualified Code(s): O72.2 - Delayed and secondary hemorrhage Urinary tract infection Qualifiers: Urinary tract infection type: acute cystitis Hematuria presence: with hematuria Qualified Code(s): N30.01 - Acute cystitis with hematuria Condition: Stable Instructions: , ED UTI Cystitis Female Follow-Up: TRACIE CHAVIRA [Primary Care Provider] - Riya Rich DO [Provider Admit Priv/Credential] - Prescriptions: Nitrofurantoin [Macrobid] 100 mg PO BID #14 capsule Discharge Date/Time: 04/10/18 09:00
[2018-04-10 07:30] LABS: GLUCOSE, URINE (UA) NEGATIVE (NEGATIVE)
[2018-04-10 07:35] LABS: CLARITY,URINE BLOODY (CLEAR)
[2018-04-10 07:36] LABS: BILIRUBIN,URINE NEGATIVE (NEGATIVE); ICTOTEST,URINE NEGATIVE
[2018-04-10 07:37] LABS: RBC,URINE TNTC /HPF (0-5); SQUAMOUS EPITHELIAL CELL,UR FEW Squamous (<= Few)
[2018-04-10 07:38] LABS: BACTERIA,URINE Moderate /HPF (None Seen)
[2018-04-10] MEDS ORDERED: cefTRIAXone 1 GM in SODIUM CHLORIDE 0.9% MINIBAG 100 ML IV STA (07:58)
[2018-04-10] MEDS ORDERED: KETOROLAC 60 MG/2 ML VIAL IVP STA (08:12)
--- NOTE | 2018-04-10 08:16 | Ultrasound Report ---
Reason: post operative bleeding Procedure Date: 04/10/2018 Accession Number: [id number] / [id number] Procedure: US - Pelvic Complete CPT Code: FULL RESULT: EXAM: PELVIC ULTRASOUND EXAM DATE: 04/10/2018 07:54 AM. CLINICAL HISTORY: Status post 2-1/2 weeks ago with placenta previa now with cramping and heavy bleeding. COMPARISON: None. TECHNIQUE: Realtime transabdominal pelvic scan performed to identify the uterus and adnexa and as an overview of other pelvic structures, with static image documentation. FINDINGS: Uterus: 10.9 x 7.8 x 6.3 cm, volume 280 cc. Anteverted position. Normal overall size and echotexture. Masses: None. Endometrium: There is complex nonvascular fluid within the endometrial canal. The endometrium is not well visualized but no vascularity is noted within the junctional zone or central myometrium. Prominent vascularity is noted in the periphery of the myometrium. Cervix: Unremarkable. Right Ovary: The right ovary is not visualized. No abnormalities noted in the right adnexa. Left Ovary: The left ovary is not visualized. No abnormalities noted in the left adnexa. Free Fluid: None. Other: None. IMPRESSION: 1. There is complex fluid within the endometrial canal with no internal vascularity or vascularity within the central portion of the myometrium. Prominent vascularity is noted along the periphery of the myometrium. 2. The ovaries are not visualized but there are no known abnormalities noted in the right or left adnexa. [facility]
[2018-04-10 09:00] VITALS: BP 128/83
== END 2018-04-10 09:00 | disposition home or self-care (01) ==
LOC: ED 05:22
DX: O72.2 Delayed and secondary postpartum hemorrhage (principal); N30.01 Acute cystitis with hematuria
CPT/HCPCS: 36415; 76856; 80053; 81001; 81003; 83690; 85025; 87086; 96365; 96375; 99283

== ENCOUNTER 2018-05-12 15:05 | Outpatient (CLI) | payer OTHER ==
[2018-05-12 15:21] LABS: HGB - HEMOGLOBIN 14.2 g/dL (12.0-16.0); MEAN CORPUSCULAR HEMOGLOBIN 29.1 pg (27.0-31.0); MEAN CORPUSCULAR HGB CONC 33.3 g/dL (32.0-36.0); MEAN CORPUSCULAR VOLUME 87.5 fL (81.0-99.0); RED BLOOD COUNT 4.87 10^6/uL (4.20-5.40); RED CELL DISTRIBUTION WIDTH 18.5 % (12.0-15.0); WHITE BLOOD COUNT 7.7 x10^3/uL (4.8-10.8)
== END 2018-05-12 15:06 | disposition home or self-care (01) ==
LOC: LAB 15:05
PROVIDERS: ATTEND Obstetrics & Gynecology
DX: Z39.2 Encounter for routine postpartum follow-up (principal)
CPT/HCPCS: 36415; 85027; 85651

== ENCOUNTER 2018-05-25 15:44 | Outpatient (CLI) | payer OTHER | END 2018-05-25 15:45 | disposition home or self-care (01) | LOC: LAB.R 15:44 | PROVIDERS: ATTEND Obstetrics & Gynecology | DX: Z11.3 Encounter for screening for infections with a predominantly sexual mode of transmission (principal) | CPT/HCPCS: 87491; 87591 ==

== ENCOUNTER 2018-05-27 08:00 | Outpatient (CLI) | payer OTHER | END 2018-05-27 23:59 | disposition home or self-care (01) | LOC: LAB.R 08:00 | PROVIDERS: ATTEND Obstetrics & Gynecology | DX: Z11.3 Encounter for screening for infections with a predominantly sexual mode of transmission (principal); R10.2 Pelvic and perineal pain | CPT/HCPCS: 87480; 87491; 87510; 87591; 87660 ==

== ENCOUNTER 2018-05-29 05:41 | Emergency (ER) | payer OTHER ==
--- NOTE | 2018-05-29 06:39 | ED Physician Documentation ---
PD HPI FEMALE - Stated complaint Stated Complaint: FEMALE - Chief complaint Chief Complaint: Abd Pain - History obtained from History obtained from: Patient - History of Present Illness Timing - onset: How many weeks ago (2) Timing - duration: Weeks (2) Timing - details: Gradual onset, Still present Associated symptoms: Pelvic pain. No: Vaginal bleeding, Vaginal discharge Contributing factors: IUD, Not sexually active Similar symptoms before: Has not had sx before Recently seen: Clinic - Additional information Additional information: 33 y/o female 2 month PP has had an IUD placed 5 days ago. She reports that she was having some pain in the lower pelvis for about a week before she had this placed and her pain has increased since the placement of the IUD. She has been in to follow up with Dr. Love 2 days ago and at that point her cervix was closed and she was asked to get u/s and blood work done for a follow up on Wednesday. She reports her discomfort has worsened and she has come to the ED for evaluation. Review of Systems Constitutional: denies: Fever Eyes: denies: Decreased vision Ears: denies: Ear pain Nose: denies: Rhinorrhea / runny nose, Congestion Throat: denies: Sore throat Cardiac: denies: Chest pain / pressure, Palpitations Respiratory: denies: Dyspnea, Cough GI: reports: Abdominal Pain, Nausea. denies: Vomiting, Constipation, Diarrhea : denies: Dysuria, Frequency, Discharge, Vaginal bleeding Skin: denies: Rash, Lesions Musculoskeletal: denies: Neck pain, Back pain, Extremity pain PD PAST MEDICAL HISTORY - Past Medical History Past Medical History: Yes Cardiovascular: None Respiratory: Other Neuro: None Endocrine/Autoimmune: None GI: GERD, Ulcers, Other : None HEENT: None Psych: None Musculoskeletal: None Derm: None - Past Surgical History Past Surgical History: Yes Ortho: Other /[facility] [facility]: section Cardiovascular: Other - Present Medications Home Medications: Ambulatory Orders Medication Instructions Recorded Confirmed Celecoxib [CeleBREX] 200 mg PO BID PRN #40 capsule 03/24/18 Docusate Sodium [Dulcolax Stool 100 mg PO BID PRN #60 capsule 03/24/18 Softener] Fluticasone [Flonase] 1 sprays NEIDA DAILY bottle 03/24/18 oxyCODONE [Roxicodone] 5 - 10 mg PO Q4H PRN #20 tablet 03/24/18 Methylergonovine Maleate 0.2 mg PO TID #9 tablet 04/08/18 [Methergine] Ondansetron Odt [Zofran] 4 mg TL Q6H PRN #15 tablet 04/08/18 Nitrofurantoin [Macrobid] 100 mg PO BID #14 capsule 04/10/18 Hydrocodone/Acetaminophen 1 - 2 each PO Q6H PRN #14 tablet 05/29/18 [Hydrocodon-Acetaminophen 5-325] - Allergies Allergies/Adverse Reactions: Allergies Allergy/AdvReac Type Severity Reaction Status Date / Time Sulfa (Sulfonamide Allergy Nausea Verified 05/29/18 05:53 Antibiotics) - Social History Does the pt smoke?: No Smoking Status: Never smoker Does the pt drink ETOH?: No Does the pt have substance abuse?: No - Immunizations Immunizations are current?: Yes - POLST Patient has POLST: No POLST Status: Full Code PD ED PE NORMAL - Vitals Vital signs reviewed: Yes (normal ) - General General: Alert and oriented X 3, No acute distress, Well developed/nourished - HEENT HEENT: Atraumatic, PERRL - Neck Neck: Supple, no meningeal sign - Cardiac Cardiac: RRR, No murmur - Respiratory Respiratory: No respiratory distress, Clear bilaterally - Abdomen Abdomen: Soft, Other (suprapubic tenderness and fullness without garding or rebound. ) - Back Back: No CVA TTP, No spinal TTP - Derm Derm: Normal color, Warm and dry, No rash - Extremities Extremities: No deformity, No edema - Neuro Neuro: Alert and oriented X 3, pewter fabricator 2-12 intact, No motor deficit, No sensory deficit, Normal speech Eye Opening: Spontaneous Motor: Obeys Commands Verbal: Oriented GCS Score: 15 - Psych Psych: Normal mood, Normal affect Results - Vitals Vitals: Vital Signs - 24 hr 05/29/18 05:47 Temperature 36.9 C Heart Rate 81 Respiratory 16 Rate Blood Pressure 124/73 O2 Saturation 100 Oxygen O2 Source Room air - Labs Labs: Laboratory Tests 05/29/18 05/29/18 05/29/18 07:02 07:29 07:29 WBC 6.6 RBC 4.54 Hgb 13.4 Hct 39.6 MCV 87.2 MCH 29.5 MCHC 33.8 RDW 16.2 H Plt Count 332 MPV 7.2 L Neut # (Auto) 3.4 Lymph # (Auto) 2.3 [place] # (Auto) 0.5 Eos # (Auto) 0.3 Baso # (Auto) 0.1 Absolute Nucleated RBC 0.00 Nucleated RBC % 0.0 Sodium 134 L Potassium 3.5 Chloride 102 Carbon Dioxide 26 Anion Gap 6.0 BUN 9 Creatinine 0.7 Estimated GFR (MDRD) 97 Glucose 97 Calcium 8.9 Total Bilirubin 0.5 AST 38 ALT 61 H Alkaline Phosphatase 98 Total Protein 7.7 Albumin 4.2 Globulin 3.5 Albumin/Globulin Ratio 1.2 Lipase 38 Urine Color YELLOW Urine Clarity HAZY Urine pH 6.0 Ur Specific [place] 1.020 Urine Protein NEGATIVE Urine Glucose (UA) NEGATIVE Urine Ketones NEGATIVE Urine Occult Blood SMALL H Urine Nitrite NEGATIVE Urine Bilirubin NEGATIVE Urine Urobilinogen 0.2 (NORMAL) Ur Leukocyte Esterase NEGATIVE Urine RBC 0-5 Urine WBC 0-3 Ur Squamous Epith Cells MANY Squamous H Urine Bacteria Many H Ur Microscopic Review INDICATED Urine Culture Comments NOT INDICATED Urine HCG, Qual NEGATIVE - Rads (name of study) u/s pel Radiology: Prelim report reviewed (Impression: 1. anteflexed retroverted uterus with a new thick linear hyper echogenicity in the lower uterine segment, suggesting normal low location of a nondeployed IUD. Right ovary cannot be visualized, likely due to body habitus. No right adnexal mass.), EMP read indepedently, See rad report PD MEDICAL DECISION MAKING - ED course Complexity details: reviewed old records, reviewed results, re-evaluated patient, considered differential, d/w patient ED course: 33 y/o female with pelvic pain after placing an IUD has been in to see the [facility] doctor in follow up and it appears the IUD was not retrievable. Today we have done some blood work, urinalysis and ultrasound. All studies were unremarkable and she had some improvement with the use of IM toradal. I have asked the patient to follow up with [facility] and we will provide several days of pain medication. Departure - Departure Disposition: 01 Home, Self Care Clinical Impression: Pelvic pain Condition: Stable Instructions: ED Pelvic Pain [facility] Follow-Up: Ron Larry MD [Provider Admit Priv/Credential] - Prescriptions: Hydrocodone/Acetaminophen [Hydrocodon-Acetaminophen 5-325] 1 - 2 each PO Q6H PRN #14 tablet PRN Reason: pain
[2018-05-29] MEDS ORDERED: KETOROLAC 60 MG/2 ML VIAL IM STA (06:52)
[2018-05-29] MEDS ORDERED: KETOROLAC 30 MG/ML VIAL ONE (06:55)
[2018-05-29 07:10] LABS: BILIRUBIN,URINE NEGATIVE (NEGATIVE); GLUCOSE, URINE (UA) NEGATIVE (NEGATIVE); KETONES,URINE (UA) NEGATIVE (NEGATIVE); LEUKOCYTE ESTERASE, URINE NEGATIVE (NEGATIVE); NITRITE,URINE NEGATIVE (NEGATIVE); OCCULT BLOOD,URINE SMALL (NEGATIVE); PROTEIN,URINE NEGATIVE (NEGATIVE); UROBILINOGEN,URINE 0.2 (NORMAL) E.U./dL (NORMAL)
[2018-05-29 07:15] LABS: CLARITY,URINE HAZY (CLEAR)
[2018-05-29 07:21] LABS: HCG UR QUAL NEGATIVE
[2018-05-29 07:22] LABS: BACTERIA,URINE Many /HPF (None Seen); RBC,URINE 0-5 /HPF (0-5); SQUAMOUS EPITHELIAL CELL,UR MANY Squamous (<= Few)
[2018-05-29 07:38] LABS: BASOPHILS # (AUTO) 0.1 10^3/uL (0.0-0.1); BASOPHILS % (AUTO) 0.8 %; EOSINOPHILS # (AUTO) 0.3 10^3/uL (0.0-0.7); EOSINOPHILS % (AUTO) 4.7 %; HGB - HEMOGLOBIN 13.4 g/dL (12.0-16.0); LYMPHOCYTES # (AUTO) 2.3 10^3/uL (1.5-3.5); LYMPHOCYTES % (AUTO) 35.8 %; MEAN CORPUSCULAR HEMOGLOBIN 29.5 pg (27.0-31.0); MEAN CORPUSCULAR HGB CONC 33.8 g/dL (32.0-36.0); MEAN CORPUSCULAR VOLUME 87.2 fL (81.0-99.0); MEAN PLATELET VOLUME 7.2 fL (7.9-10.8); MONOCYTES # (AUTO) 0.5 10^3/uL (0.0-1.0); NEUTROPHILS # (AUTO) 3.4 10^3/uL (1.5-6.6); NEUTROPHILS % (AUTO) 51.7 %; PLT - PLATELET COUNT 332 10^3/uL (130-450); RED BLOOD COUNT 4.54 10^6/uL (4.20-5.40); RED CELL DISTRIBUTION WIDTH 16.2 % (12.0-15.0); WHITE BLOOD COUNT 6.6 x10^3/uL (4.8-10.8)
--- NOTE | 2018-05-29 07:48 | Ultrasound Report ---
Reason: pelvic pain/cramping s/p IUD insertion Procedure Date: 05/29/2018 Accession Number: [id number] / [id number] Procedure: US - Pelvic Complete CPT Code: FULL RESULT: EXAM: PELVIC ULTRASOUND EXAM DATE: 05/29/2018 06:38 AM. CLINICAL HISTORY: Pelvic pain/cramping status post IUD insertion. LMP 05/18/2018. COMPARISON: Pelvis complete 04/10/2018. TECHNIQUE: Realtime transabdominal pelvic scan performed to identify the uterus and adnexa and as an overview of other pelvic structures, followed by transvaginal scan to provide greater detail of the uterus and adnexa, with static image documentation. FINDINGS: Uterus: 7.3 x 4.2 x 5.0 cm, volume 93 cc. Anteflexed retroverted position. Masses: None. Endometrium: 9 mm. There is a new thick linear nonshadowing hyperechogenicity in the lower uterine segment. Otherwise, no normal deployed IUD visualized. No endometrial fluid collection, polyp or vascular nodule. Cervix: Unremarkable. Right Ovary: Not visualized. Left Ovary: 2.8 x 1.8 x 3 cm, volume 7.8 cc. Normal echotexture and blood flow. Free Fluid: None. IMPRESSION: 1. Anteflexed retroverted uterus with a new thick linear hyperechogenicity in the lower uterine segment, suggesting abnormal low location of a non-deployed IUD. 2. Right ovary cannot be visualized, likely due to body habitus. No right adnexal mass. [facility]
[2018-05-29 07:50] LABS: ALBUMIN 4.2 g/dL (3.2-5.5); ALBUMIN/GLOBULIN RATIO 1.2 (1.0-2.2); BILIRUBIN,TOTAL 0.5 mg/dL (0.2-1.0); CALCIUM 8.9 mg/dL (8.5-10.3); CREATININE 0.7 mg/dL (0.4-1.0); TOTAL PROTEIN 7.7 g/dL (6.7-8.2)
[2018-05-29 08:44] VITALS: BP 108/74
== END 2018-05-29 08:45 | disposition home or self-care (01) ==
LOC: ED 05:41
DX: R10.2 Pelvic and perineal pain (principal); Z97.5 Presence of (intrauterine) contraceptive device
CPT/HCPCS: 36415; 76830; 76856; 80053; 81001; 81003; 81025; 83690; 85025; 87086; 96372; 99283

== ENCOUNTER 2018-09-20 12:14 | Outpatient (CLI) | payer OTHER ==
--- NOTE | 2018-09-21 09:50 | MRI Report ---
Reason: PAIN IN LEFT KNEE Procedure Date: 09/20/2018 Accession Number: [id number] / [id number] Procedure: MRI - Knee LT W/O CPT Code: FULL RESULT: EXAM: LEFT KNEE MRI WITHOUT CONTRAST EXAM DATE: 09/20/2018 01:21 PM. CLINICAL HISTORY: Pain in left knee. COMPARISON: None. TECHNIQUE: Multiplanar, multisequence T1-weighted and fluid-sensitive sequences of the knee without contrast. Other: None. FINDINGS: Bones: No fractures or subluxations. No marrow edema. No bone lesions. Articular Cartilage: Unremarkable. Medial Meniscus: The medial meniscus is intact. Lateral Meniscus: The lateral meniscus is intact. Cruciate Ligaments: The anterior and posterior cruciate ligaments are intact. The ACL is somewhat attenuated but thought to be normal. Collateral Ligaments: The medial collateral and lateral collateral ligamentous structures are intact. Tendons: The quadriceps, patellar, semimembranosus, and popliteus tendons are unremarkable. Musculature: No edema or fatty atrophy. Other: No effusion. No popliteal cyst. No loose bodies. The medial and lateral retinacula are intact. The subcutaneous tissues and fat pads are unremarkable. IMPRESSION: 1. Overall, unremarkable exam. The ACL is somewhat attenuated but thought to be within range of normal. [facility] MUSCULOSKELETAL RADIOLOGY SECTION
== END 2018-09-20 12:15 | disposition home or self-care (01) ==
LOC: DI 12:14
PROVIDERS: ATTEND Orthopaedic Surgery
DX: M25.562 Pain in left knee (principal)

== ENCOUNTER 2018-10-10 08:00 | Outpatient (CLI) | payer OTHER | END 2018-10-10 23:59 | disposition home or self-care (01) | LOC: LAB.R 08:00 | PROVIDERS: ATTEND Registered Nurse | DX: N73.9 Female pelvic inflammatory disease, unspecified (principal) | CPT/HCPCS: 87086; 87181; 87491; 87591 ==

== ENCOUNTER 2018-10-11 13:05 | Emergency (ER) | payer OTHER ==
--- NOTE | 2018-10-11 13:40 | ED Physician Documentation ---
PD HPI HEAD INJURY - Stated complaint Stated Complaint: HEAD PAIN - Chief complaint Chief Complaint: Trauma Hd/Nk - History obtained from History obtained from: Patient, Family - History of Present Illness Mechanism of head injury: Blow Where head injury occurred: Home Timing - onset: How many days ago (3) Location of injury: Right, Front Quality of pain: Pain Associated symptoms: Paresthesias, Other (dizziness and headache). No: LOC, AMS, Amnesia, Nausea / vomiting, Neck pain, Seizures, Ear drainage, Nasal drainage Symptoms improve with: Rest Symptoms worsen with: Palpation, Movement Contributing factors: No: Anticoagulated Similar symptoms before: Has not had sx before Recently seen: Clinic - Additional information Additional information: 33-year-old female got up in the middle of the night to attend to her son and she struck the her head on the corner of the door and she did not get knocked out but she has significant scalp pain in the right scalp. She has had a headache since the headache has persisted she is awake and this morning with some dizziness she has not had nausea. She has had migration of her head pains. She is concerned about the head pain related to the head injury and this is her chief complaint. She was in to see the [employer] MANAGER about continued symptoms. She has had her IUD removed and she is on a course of antibioitc for vaginitis. She had a shot yesterday in the clinic of an antibiotic and she had some diarrhea this morning. Review of Systems Constitutional: denies: Fever, Myalgias Eyes: denies: Decreased vision Ears: denies: Ear pain Nose: denies: Rhinorrhea / runny nose, Congestion Throat: denies: Sore throat Cardiac: denies: Chest pain / pressure, Palpitations Respiratory: denies: Dyspnea, Cough GI: denies: Abdominal Pain, Nausea, Vomiting : denies: Dysuria, Frequency Skin: denies: Rash Musculoskeletal: denies: Neck pain, Back pain, Extremity pain, Joint pain Neurologic: reports: Headache, Head injury. denies: Generalized weakness, Focal weakness, Numbness, Difficulty speaking, Near syncope, Syncope, Seizure, Confused, Altered mental status, LOC PD PAST MEDICAL HISTORY - Past Medical History Cardiovascular: None Respiratory: Other Neuro: None Endocrine/Autoimmune: None GI: GERD, Ulcers, Other : None HEENT: None Psych: None Musculoskeletal: None Derm: None - Past Surgical History Past Surgical History: Yes Ortho: Other /[employer] MANAGER: section Cardiovascular: Other - Present Medications Home Medications: Ambulatory Orders Medication Instructions Recorded Confirmed Celecoxib [CeleBREX] 200 mg PO BID PRN #40 capsule 03/24/18 Docusate Sodium [Dulcolax Stool 100 mg PO BID PRN #60 capsule 03/24/18 Softener] Fluticasone [Flonase] 1 sprays NEIDA DAILY bottle 03/24/18 oxyCODONE [Roxicodone] 5 - 10 mg PO Q4H PRN #20 tablet 03/24/18 Methylergonovine Maleate 0.2 mg PO TID #9 tablet 04/08/18 [Methergine] Ondansetron Odt [Zofran] 4 mg TL Q6H PRN #15 tablet 04/08/18 Nitrofurantoin [Macrobid] 100 mg PO BID #14 capsule 04/10/18 Hydrocodone/Acetaminophen 1 - 2 each PO Q6H PRN #14 tablet 05/29/18 [Hydrocodon-Acetaminophen 5-325] - Allergies Allergies/Adverse Reactions: Allergies Allergy/AdvReac Type Severity Reaction Status Date / Time Sulfa (Sulfonamide Allergy Nausea Verified 10/11/18 13:12 Antibiotics) - Social History Does the pt smoke?: No Smoking Status: Never smoker Does the pt drink ETOH?: No Does the pt have substance abuse?: No - Immunizations Immunizations are current?: Yes - POLST Patient has POLST: No POLST Status: Full Code PD ED PE NORMAL - Vitals Vital signs reviewed: Yes (hypertension mild ) - General General: Alert and oriented X 3, No acute distress, Well developed/nourished - HEENT HEENT: Atraumatic, PERRL, EOMI, Ears normal, Moist mucous membranes, Pharynx benign, Dentition benign - Neck Neck: Supple, no meningeal sign, No bony TTP - Cardiac Cardiac: RRR, No murmur - Respiratory Respiratory: No respiratory distress, Clear bilaterally - Abdomen Abdomen: Soft, Non tender - Back Back: No CVA TTP, No spinal TTP - Derm Derm: Normal color, Warm and dry, No rash - Extremities Extremities: No deformity, No edema - Neuro Neuro: Alert and oriented X 3, glove brusher 2-12 intact, No motor deficit, No sensory deficit, Normal speech Eye Opening: Spontaneous Motor: Obeys Commands Verbal: Oriented GCS Score: 15 - Psych Psych: Normal mood, Normal affect Results - Vitals Vitals: Vital Signs - 24 hr 10/11/18 13:11 Temperature 36.7 C Heart Rate 93 Respiratory 18 Rate Blood Pressure 135/71 H O2 Saturation 99 Oxygen O2 Source Room air - Rads (name of study) CT head without Radiology: Prelim report reviewed (Impression: Normal head CT.), EMP read indepedently, See rad report PD MEDICAL DECISION MAKING - ED course Complexity details: reviewed results, re-evaluated patient, considered differential, d/w patient, d/w family ED course: 33-year-old female with a contusion to the right scalp has a persistent headache she has no evidence of intracranial hemorrhage on CT scanning of the brain. Departure - Departure Disposition: 01 Home, Self Care Clinical Impression: Concussion Qualifiers: Encounter type: initial encounter Loss of consciousness presence/duration: without LOC Qualified Code(s): S06.0X0A - Concussion without loss of consciousness, initial encounter Condition: Stable Instructions: ED Concussion Follow-Up: Douglas Baron [Primary Care Provider] -
--- NOTE | 2018-10-11 14:12 | CT Report ---
Reason: head injury persistent left headache. Procedure Date: 10/11/2018 Accession Number: [id number] / [id number] Procedure: CT - HEAD WO CPT Code: FULL RESULT: EXAM: CT HEAD EXAM DATE: 10/11/2018 02:04 PM. CLINICAL HISTORY: Headache from closed head injury COMPARISON: None. TECHNIQUE: Multiaxial CT images were obtained from the foramen magnum to the vertex. Reformats: Sagittal and coronal. IV contrast: None. In accordance with CT protocol optimization, one or more of the following dose reduction techniques were utilized for this exam: automated exposure control, adjustment of mA and/or KV based on patient size, or use of iterative reconstructive technique. FINDINGS: Parenchyma: No intraparenchymal hemorrhage. No evidence of mass, midline shift, or CT findings of infarction. Cintron-white differentiation is distinct. Extraaxial Spaces: Normal for age. No subdural or epidural collections identified. Ventricles: Normal in size and position. Sinuses and Orbits: Imaged paranasal sinuses, orbits, and mastoids show no significant abnormality. Bones: No evidence of fracture or calvarial defect. Other: None. IMPRESSION: Normal head CT. [facility]
[2018-10-11] MEDS ORDERED: KETOROLAC 60 MG/2 ML VIAL IM STA (14:17)
[2018-10-11 14:26] VITALS: BP 112/76
== END 2018-10-11 14:32 | disposition home or self-care (01) ==
LOC: ED 13:05
DX: S06.0X0A Concussion without loss of consciousness, initial encounter (principal); W22.09XA Striking against other stationary object, initial encounter; Y93.F9 Activity, other caregiving; Y92.009 Unspecified place in unspecified non-institutional (private) residence as the place of occurrence of the external cause
CPT/HCPCS: 70450; 96372; 99283

== ENCOUNTER 2018-10-24 08:00 | Outpatient (CLI) | payer OTHER | END 2018-10-24 23:59 | disposition home or self-care (01) | LOC: LAB.R 08:00 | PROVIDERS: ATTEND Registered Nurse | DX: R31.9 Hematuria, unspecified (principal) | CPT/HCPCS: 87086 ==

== ENCOUNTER 2018-10-25 18:00 | Outpatient (CLI) | payer OTHER ==
--- NOTE | 2018-10-25 19:27 | Ultrasound Report ---
Reason: FEMALE PELVIC INFLAMMATORY DISEASE,UNSPECIFIED Procedure Date: 10/25/2018 Accession Number: [id number] / [id number] Procedure: US - Pelvic w/Transvaginal CPT Code: FULL RESULT: EXAM: PELVIC ULTRASOUND EXAM DATE: 10/25/2018 06:48 PM. CLINICAL HISTORY: Pelvic pain status post section 7 months ago. LMP 10/15/2018 COMPARISON: 05/29/2018. TECHNIQUE: Realtime transabdominal pelvic scan performed to identify the uterus and adnexa and as an overview of other pelvic structures, followed by transvaginal scan to provide greater detail of the uterus and adnexa, with static image documentation. FINDINGS: Uterus: 8 x 4.2 x 6 cm, volume 105 cc. Retroverted position. Normal overall size and echotexture. Masses: 1 x 0.5 x 0.9 anterior left lateral subserosal fibroid Endometrium: 3 mm. Normal. Cervix: Small cluster of calcifications in the cervix 6 x 4 x 5 mm. Right Ovary: 3.8 x 1.6 x 3.5 cm, volume 11.1 cc. Multiple small follicles. Normal blood flow. Left Ovary: 3.6 x 1.6 x 3.7 cm, volume 6.9 cc. Multiple small follicles. Normal blood flow. Free Fluid: Small amount. Other: None. IMPRESSION: No significant abnormality pelvic ultrasound. RADIA
== END 2018-10-25 18:01 | disposition home or self-care (01) ==
LOC: DI 18:00
PROVIDERS: ATTEND Registered Nurse
DX: N73.9 Female pelvic inflammatory disease, unspecified (principal); R10.2 Pelvic and perineal pain
CPT/HCPCS: 76830; 76856

== ENCOUNTER 2018-11-16 08:00 | Outpatient (CLI) | payer OTHER ==
[2018-11-16 21:23] LABS: CANDIDA GROUP DNA NEGATIVE (NEGATIVE); CANDIDA KRUSEI DNA NEGATIVE (NEGATIVE); TRICHOMONAS VAGINALIS DNA NEGATIVE (NEGATIVE)
== END 2018-11-16 23:59 | disposition home or self-care (01) ==
LOC: LAB.R 08:00
PROVIDERS: ATTEND Registered Nurse
DX: N89.8 Other specified noninflammatory disorders of vagina (principal)
CPT/HCPCS: 87661; 87801

== ENCOUNTER 2018-11-24 14:50 | Outpatient (CLI) | payer OTHER ==
[2018-11-26 11:42] LABS: HSV 2 IGG TYPE SPECIFIC AB <0.90 index
== END 2018-11-24 14:51 | disposition home or self-care (01) ==
LOC: LAB 14:50
PROVIDERS: ATTEND Registered Nurse
DX: N89.8 Other specified noninflammatory disorders of vagina (principal)
CPT/HCPCS: 36415; 81599; 86695; 86696

== ENCOUNTER 2018-11-25 08:00 | Outpatient (CLI) | payer OTHER ==
[2018-11-25 22:54] LABS: CANDIDA GROUP DNA NEGATIVE (NEGATIVE); CANDIDA KRUSEI DNA NEGATIVE (NEGATIVE); TRICHOMONAS VAGINALIS DNA NEGATIVE (NEGATIVE)
== END 2018-11-25 23:59 | disposition home or self-care (01) ==
LOC: LAB.R 08:00
PROVIDERS: ATTEND Registered Nurse
DX: N89.8 Other specified noninflammatory disorders of vagina (principal)
CPT/HCPCS: 87070; 87661; 87801

== ENCOUNTER 2018-12-14 14:38 | Outpatient (CLI) | payer OTHER ==
--- NOTE | 2018-12-14 16:04 | CT Report ---
Reason: LOWER ABDOMINAL PAIN,HISTORY OF SECTION,H Procedure Date: 12/14/2018 Accession Number: [id number] / [id number] Procedure: CT - Abdomen/Pelvis WO CPT Code: FULL RESULT: EXAM: CT ABDOMEN AND PELVIS (CT KUB) WITHOUT CONTRAST. EXAM DATE: 12/14/2018 02:51 PM. CLINICAL HISTORY: Lower abdominal pain. History of section 8 months prior. COMPARISONS: None. TECHNIQUE: Routine axial helical CT imaging was performed through the abdomen and pelvis without IV contrast. Reconstructions: Coronal and sagittal. In accordance with CT protocol optimization, one or more of the following dose reduction techniques were utilized for this exam: automated exposure control, adjustment of mA and/or KV based on patient size, or use of iterative reconstructive technique. FINDINGS: The examination is limited due to absence of intravenous contrast. The noncontrast appearance of intrapelvic organs is within normal limits. The noncontrast liver, gallbladder, spleen, adrenal glands, kidneys, and pancreas are unremarkable. There is no bowel obstruction, free fluid or free air. There is no intra-abdominal or intrapelvic lymphadenopathy. There is no aggressive osseous lesion. IMPRESSION: Limited examination with no significant postsurgical finding or acute abnormality identified. RADIA
== END 2018-12-14 14:39 | disposition home or self-care (01) ==
LOC: DI 14:38
PROVIDERS: ATTEND Urology
DX: R10.30 Lower abdominal pain, unspecified (principal); L76.82 Other postprocedural complications of skin and subcutaneous tissue; Z98.891 History of uterine scar from previous surgery; Z87.440 Personal history of urinary (tract) infections
CPT/HCPCS: 74176

== ENCOUNTER 2019-05-23 11:54 | Outpatient (CLI) | payer OTHER ==
--- NOTE | 2019-05-24 01:49 | CT Report ---
Reason: HEMATURIA, KETONURIA, LT FLANK PAIN Procedure Date: 05/23/2019 Accession Number: [id number] / [id number] Procedure: CT - Abdomen/Pelvis WO CPT Code: Final Report FULL RESULT: EXAM: CT ABDOMEN AND PELVIS (CT KUB) EXAM DATE: 05/23/2019 12:04 PM. CLINICAL HISTORY: HEMATURIA, KETONURIA, LT FLANK PAIN. COMPARISONS: ABDOMEN/PELVIS W/O 12/14/2018 2:48 PM. TECHNIQUE: Routine helical CT imaging was performed through the abdomen and pelvis without intravenous contrast. Lack of intravenous contrast can at times limit scan sensitivity, particularly for the detection of intraparenchymal and vascular pathology. Reconstructions: Coronal and sagittal. In accordance with CT protocol optimization, one or more of the following dose reduction techniques were utilized for this exam: automated exposure control, adjustment of mA and/or KV based on patient size, or use of iterative reconstructive technique. FINDINGS: ABDOMEN: Lung Bases: Incompletely included lower lungs are grossly clear aside from focal scarring in the right lower lobe. Heart size is within normal limits. No basilar effusions. Liver: Unremarkable. Gallbladder/Bile Ducts: Gallbladder is unremarkable. Visualized biliary tree is normal caliber. Spleen: Unremarkable. Pancreas: Unremarkable. Adrenal Glands: Unremarkable. Kidneys: Right kidney: No calculi or hydronephrosis. Left kidney: No calculi or hydronephrosis. Peritoneum/Mesentery/Bowel: No free fluid, free air, or collection. No intestinal obstruction or inflammation. The appendix is within normal limits. Lymph nodes: No mesenteric, periportal, or retroperitoneal lymphadenopathy. PELVIS: Bladder is decompressed. Uterus is present. No obvious abnormally enlarged adnexal abnormalities. No pelvic lymphadenopathy. Retroperitoneum: Abdominal aorta is nonaneurysmal. Bones: No suspicious osseous lesions. IMPRESSION: No acute unenhanced abnormalities. No renal calculi or hydronephrosis. RADIA
== END 2019-05-23 11:55 | disposition home or self-care (01) ==
LOC: DI 11:54
PROVIDERS: ATTEND Physician Assistant Medical
DX: R31.9 Hematuria, unspecified (principal); R82.4 Acetonuria; R10.9 Unspecified abdominal pain
CPT/HCPCS: 74176

== ENCOUNTER 2019-08-21 21:42 | Emergency (ER) | payer OTHER | END 2019-08-21 21:54 | disposition left against medical advice (07) | LOC: ED 21:42 | DX: Z53.21 Procedure and treatment not carried out due to patient leaving prior to being seen by health care provider (principal) ==

== ENCOUNTER 2019-11-22 09:31 | Outpatient (CLI) | payer OTHER ==
--- NOTE | 2019-11-22 17:03 | Ultrasound Report ---
Reason: POSITIVE TEST Procedure Date: 11/22/2019 Accession Number: [id number] / [id number] Procedure: US - OB First Trimester CPT Code: Final Report FULL RESULT: EXAM: FIRST TRIMESTER OBSTETRIC ULTRASOUND (Less than 11 weeks) EXAM DATE: 11/22/2019 10:53 AM. CLINICAL HISTORY: Positive test. LMP: 10/02/2019. COMPARISONS: OB FIRST TRIMESTER 09/16/2017 3:08 PM. PELVIC W/TRANSVAGINAL 10/25/2018 6:06 PM. TECHNIQUE: Transabdominal and transvaginal ultrasound examination with static image documentation. CLINICAL DATES: EGA 7 weeks 2 days with JIMBO 07/08/2020 based on LMP. ASSESSMENT: Gestational Sac: Single intrauterine. Mean gestational sac diameter: 34.4 mm = 8 weeks 4 days. Embryo: CRL (crown-rump length) 14.8 mm = 7 weeks 6 days. Cardiac activity: 168 beats per minute. Yolk sac: 2.7 mm. Amniotic fluid: Not accurately assessed at this gestational age. Early placenta: Not visible at this gestational age. Other: No perigestational fluid collection demonstrated. MATERNAL STRUCTURES: Uterus: Retroverted. Subserosal fibroid at the fundus measuring 2 x 1.6 x 1.8 cm. Cervix: Closed. Right Ovary/Adnexa: The ovary measures 2.5 x 2.2 x 1.9 cm, volume 5.5 cc. Unremarkable. Left Ovary/Adnexa: The ovary measures 2.8 x 1.5 x 2.4 cm, volume 5.3 cc. A corpus luteum measures 1.5 x 1.5 x 1.7 cm. Free Fluid: None. Other: None. IMPRESSION: 1. Single viable intrauterine at EGA 7 weeks 6 days with JIMBO 07/04/2020 based on crown-rump length, which is within 4 days of clinical dates. 2. Assigned dating is JIMBO 07/08/2020 based on LMP. DALE
== END 2019-11-22 09:32 | disposition home or self-care (01) ==
LOC: DI 09:31
PROVIDERS: ATTEND Obstetrics & Gynecology
DX: Z34.91 Encounter for supervision of normal pregnancy, unspecified, first trimester (principal)
CPT/HCPCS: 76801; 76817

== ENCOUNTER 2019-11-29 07:00 | Outpatient (CLI) | payer OTHER ==
[2019-11-29 22:27] LABS: TRICHOMONAS VAGINALIS DNA NEGATIVE (NEGATIVE)
[2019-11-29 23:00] LABS: CANDIDA GROUP DNA NEGATIVE (NEGATIVE); CANDIDA KRUSEI DNA NEGATIVE (NEGATIVE); TRICHOMONAS VAGINALIS DNA NEGATIVE (NEGATIVE)
== END 2019-11-29 23:59 | disposition home or self-care (01) ==
LOC: LAB.R 07:00
PROVIDERS: ATTEND Advanced Practice Midwife
DX: Z11.3 Encounter for screening for infections with a predominantly sexual mode of transmission (principal); N89.8 Other specified noninflammatory disorders of vagina
CPT/HCPCS: 87491; 87591; 87661; 87801

== ENCOUNTER 2019-12-14 08:00 | Outpatient (CLI) | payer OTHER ==
[2019-12-14 18:56] LABS: BASOPHILS % (AUTO) 0.2 %; EOSINOPHILS # (AUTO) 0.1 10^3/uL (0.0-0.7); EOSINOPHILS % (AUTO) 1.5 %; HGB - HEMOGLOBIN 13.5 g/dL (12.0-16.0); LYMPHOCYTES # (AUTO) 2.2 10^3/uL (1.5-3.5); LYMPHOCYTES % (AUTO) 23.2 %; MEAN CORPUSCULAR HEMOGLOBIN 31.9 pg (27.0-31.0); MEAN CORPUSCULAR HGB CONC 34.4 g/dL (32.0-36.0); MEAN CORPUSCULAR VOLUME 92.9 fL (81.0-99.0); MEAN PLATELET VOLUME 10.2 fL (7.9-10.8); MONOCYTES # (AUTO) 0.6 10^3/uL (0.0-1.0); MONOCYTES % (AUTO) 6.2 %; NEUTROPHILS # (AUTO) 6.3 10^3/uL (1.5-6.6); NEUTROPHILS % (AUTO) 68.5 %; PLT - PLATELET COUNT 299 10^3/uL (130-450); RED BLOOD COUNT 4.23 10^6/uL (4.20-5.40); RED CELL DISTRIBUTION WIDTH 13.8 % (12.0-15.0); WHITE BLOOD COUNT 9.3 x10^3/uL (4.8-10.8)
[2019-12-15 12:19] LABS: HEPATITIS B SURFACE ANTIGEN NON-REACTIVE (NON-REACTIVE); HEPATITIS C ANTIBODY NON-REACTIVE (NON-REACTIVE)
[2019-12-15 13:00] LABS: HIV AG/AB 4TH GEN NON-REACTIVE (NON-REACTIVE)
== END 2019-12-14 23:59 | disposition home or self-care (01) ==
LOC: LAB.WCP 08:00
PROVIDERS: ATTEND Obstetrics & Gynecology
DX: Z36.89 Encounter for other specified antenatal screening (principal)
CPT/HCPCS: 36415; 81599; 85025; 86592; 86762; 86803; 86850; 86900; 86901; 87340; 87389

== ENCOUNTER 2020-01-19 11:31 | Outpatient (CLI) | payer OTHER | END 2020-01-19 23:59 | disposition home or self-care (01) | LOC: LAB.WCP 11:31 | PROVIDERS: ATTEND Obstetrics & Gynecology | DX: O09.90 Supervision of high risk pregnancy, unspecified, unspecified trimester (principal); Z3A.00 Weeks of gestation of pregnancy not specified | CPT/HCPCS: 82105 ==

== ENCOUNTER 2020-02-19 12:04 | Outpatient (CLI) | payer OTHER ==
--- NOTE | 2020-02-19 13:51 | Ultrasound Report ---
PROCEDURE: OB Detailed Eval INDICATIONS: SUPERVISION OF HIGH RISK OUTSIDE/PRIOR DATING DATA: Last menstrual period (LMP): 10/02/2019. LMP-based estimated date of delivery (JIMBO): 07/08/2020. First dating scan (date and location): 11/22/2019. Estimated date of delivery (JIMBO) from first dating scan: 07/04/2020. TECHNIQUE: Real-time scanning was performed of the fetus, with image documentation and biometric measurements. Endovaginal scanning: Performed COMPARISON: 11/22/2019. FINDINGS: General: A single living intrauterine gestation is present. Presentation: Vertex Placenta: Placental position is anterior, without previa. Amniotic fluid index: 18.7 cm, 5-24 cm normal. heart rate: 145 beats per minute. Maternal cervical canal: Closed and 5.1 cm long; normal length is 2.5 cm or more. biometrics: Biparietal diameter: 21 weeks 5 days Head circumference: 21 weeks 4 days Abdominal circumference: 20 weeks 5 days Femur length: 21 weeks 1 day Estimated gestational age from initial scan: 20 weeks 4 days. Composite gestational age from present scan: 21 weeks 1 day Estimated weight and percentile: 395 g; 71st percentile Measurement variability in biometric dating: +/- 10 days from 12-20 weeks gestation, +/- 2 weeks from 20-30 weeks gestation, +/- 3 weeks at 30 weeks gestation or later. Anatomic survey: Neuro: Ventricles are normal at less than 10 mm. Cisterna magna is normal at 3-11 mm. Cerebellum i s normal in size and morphology. Nuchal skin fold: Normal at less than 6 mm between 14 and 20 weeks gestational age. Face: Nose and lips, facial profile are normal. Spine: No evidence for spina bifida. Heart: 4-chambered heart is present, with normal ventricular outflow tracts. Diaphragm: Diaphragm is intact. Stomach: Left-sided stomach is present. Kidneys: No hydronephrosis. Normal is less than 5 mm in 2nd trimester, less than 7 mm in 3rd trimester. Cord: 3 vessel cord has orthotopic insertion. Bladder: Normal in size. Extremities: All 4 extremities are visualized. IMPRESSION: 1. Single living intrauterine with appropriate interval growth. 2. Normal amniotic fluid index. 3. Normal anatomic survey. Reviewed by: Carmen Mtz MD, PhD on 02/19/2020 1:50 PM PDT Approved by: Carmen Mtz MD, PhD on 02/19/2020 1:50 PM PDT Station ID: [id number]
== END 2020-02-19 12:05 | disposition home or self-care (01) ==
LOC: DI 12:04
PROVIDERS: ATTEND Obstetrics & Gynecology
DX: O09.90 Supervision of high risk pregnancy, unspecified, unspecified trimester (principal); Z3A.21 21 weeks gestation of pregnancy
CPT/HCPCS: 76811

== ENCOUNTER 2020-05-03 10:12 | Outpatient (CLI) | payer OTHER ==
[2020-05-03 11:43] LABS: BASOPHILS % (AUTO) 0.3 %; EOSINOPHILS # (AUTO) 0.1 10^3/uL (0.0-0.7); EOSINOPHILS % (AUTO) 1.4 %; HGB - HEMOGLOBIN 11.4 g/dL (12.0-16.0); LYMPHOCYTES # (AUTO) 1.6 10^3/uL (1.5-3.5); LYMPHOCYTES % (AUTO) 15.9 %; MEAN CORPUSCULAR HGB CONC 31.5 g/dL (32.0-36.0); MEAN CORPUSCULAR VOLUME 85.6 fL (81.0-99.0); MEAN PLATELET VOLUME 10.1 fL (7.9-10.8); MONOCYTES # (AUTO) 0.5 10^3/uL (0.0-1.0); MONOCYTES % (AUTO) 4.5 %; NEUTROPHILS # (AUTO) 7.7 10^3/uL (1.5-6.6); PLT - PLATELET COUNT 278 10^3/uL (130-450); RED BLOOD COUNT 4.23 10^6/uL (4.20-5.40); RED CELL DISTRIBUTION WIDTH 14.4 % (12.0-15.0)
== END 2020-05-03 23:59 | disposition home or self-care (01) ==
LOC: LAB.WCP 10:12
PROVIDERS: ATTEND Obstetrics & Gynecology
DX: Z36.89 Encounter for other specified antenatal screening (principal); O09.90 Supervision of high risk pregnancy, unspecified, unspecified trimester
CPT/HCPCS: 36415; 82306; 82950; 85025

== ENCOUNTER 2020-05-06 08:00 | Outpatient (CLI) | payer OTHER | END 2020-05-06 23:59 | disposition home or self-care (01) | LOC: LAB.R 08:00 | PROVIDERS: ATTEND Obstetrics & Gynecology | DX: O60.00 Preterm labor without delivery, unspecified trimester (principal) | CPT/HCPCS: 82731 ==

== ENCOUNTER 2020-05-27 11:59 | Emergency (ER) | payer OTHER ==
[2020-05-27] MEDS ORDERED: ALBUTEROL 1 PUFF INH STA (12:52)
--- NOTE | 2020-05-27 13:08 | ED Physician Documentation ---
History of Present Illness - Stated complaint Stated Complaint: SOA/SENT BY - Chief complaint Chief Complaint: Resp - History obtained from History obtained from: Patient - History of Present Illness Timing: How many weeks ago (1) Pain level max: 0 Pain level now: 0 - Additonal information Additional information: 35-year-old female presents to the emergency department with a mild dry cough for the past 8 months that she has been . She also states she has been feeling more short of breath over the past week. Has a history of asthma. She is on Flovent which he uses once a day and she states she is on "albuterol" that she uses intermittently. Does not use with a spacer. Had similar symptoms her last . She is currently 34 weeks . She states she becomes short of breath with exertion. She has swelling in both of her ankles. She states the right is greater than left. No chest pain. She was sent from OB for evaluation today. Worse with exertion, better with rest Review of Systems Constitutional: denies: Fever, Chills Nose: denies: Rhinorrhea / runny nose, Congestion Throat: denies: Sore throat Cardiac: reports: Chest pain / pressure (She states sometimes her chest hurts when she has heartburn.) Respiratory: reports: Cough (Dry, unchanged) GI: denies: Vomiting, Diarrhea Skin: denies: Rash Musculoskeletal: denies: Neck pain, Back pain Neurologic: denies: Headache PD PAST MEDICAL HISTORY - Past Medical History Cardiovascular: None Respiratory: Other Neuro: None Endocrine/Autoimmune: None GI: GERD, Ulcers, Other : None HEENT: None Psych: None Musculoskeletal: None Derm: None - Past Surgical History Past Surgical History: Yes 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 Cardiovascular: Other - Present Medications Home Medications: Ambulatory Orders Medication Instructions Recorded Confirmed Celecoxib [CeleBREX] 200 mg PO BID PRN #40 capsule 03/24/18 Docusate Sodium [Dulcolax Stool 100 mg PO BID PRN #60 capsule 03/24/18 Softener] Fluticasone [Flonase] 1 sprays NEIDA DAILY bottle 03/24/18 oxyCODONE [Roxicodone] 5 - 10 mg PO Q4H PRN #20 tablet 03/24/18 Methylergonovine Maleate 0.2 mg PO TID #9 tablet 04/08/18 [Methergine] Ondansetron Odt [Zofran] 4 mg TL Q6H PRN #15 tablet 04/08/18 Nitrofurantoin [Macrobid] 100 mg PO BID #14 capsule 04/10/18 Hydrocodone/Acetaminophen 1 - 2 each PO Q6H PRN #14 tablet 05/29/18 [Hydrocodon-Acetaminophen 5-325] - Allergies Allergies/Adverse Reactions: Allergies Allergy/AdvReac Type Severity Reaction Status Date / Time Sulfa (Sulfonamide Allergy Nausea Verified 05/27/20 12:15 Antibiotics) - Social History Does the pt smoke?: No Smoking Status: Never smoker Does the pt drink ETOH?: No Does the pt have substance abuse?: No - Immunizations Immunizations are current?: Yes - POLST Patient has POLST: No POLST Status: Full Code PD ED PE NORMAL - Vitals Vital signs reviewed: Yes - General General: Alert and oriented X 3, No acute distress - HEENT HEENT: Moist mucous membranes - Neck Neck: Supple, no meningeal sign - Cardiac Cardiac: RRR - Respiratory Respiratory: No respiratory distress, Clear bilaterally - Abdomen Abdomen: Soft, Non tender, Other (Gravid abdomen) - Derm Derm: Warm and dry - Extremities Extremities: No calf tenderness / cord, Other (Trace edema bilateral lower extremities) - Neuro Neuro: Alert and oriented X 3 - Psych Psych: Normal mood, Normal affect Results - Vitals Vitals: Vital Signs - 24 hr 05/27/20 05/27/20 05/27/20 12:15 13:06 14:05 Temperature 37.2 C 37.1 C Heart Rate 114 H 110 H 104 H Respiratory 18 16 16 Rate Blood Pressure 130/91 H 115/83 H O2 Saturation 100 99 Oxygen O2 Source Room air PD MEDICAL DECISION MAKING - ED course Complexity details: reviewed results, re-evaluated patient, considered differential, d/w patient, d/w nursing education consultant ED course: Patient feels much better after albuterol treatment with a spacer. She states that her breathing feels like normal. She is speaking regularly. Patient is otherwise well-appearing, nontoxic. No fever. No indication for x-ray. No indication for blood work. Discussed with Dr. Robles, OB and patient will follow-up in clinic. Patient counseled regarding signs and symptoms for which I believe and urgent re-evaluation would be necessary. Patient with good understanding of and agreement to plan and is comfortable going home at this time This document was made in part using voice recognition software. While efforts are made to proofread this document, sound alike and grammatical errors may occur. Departure - Departure Disposition: 01 Home, Self Care Clinical Impression: Asthma Qualifiers: Asthma severity: unspecified severity Asthma persistence: unspecified Asthma complication type: unspecified Qualified Code(s): J45.909 - Unspecified asthma, uncomplicated Condition: Good Instructions: ED Reactive Airway Disease Follow-Up: Douglas Baron [Primary Care Provider] - Within 1 week Comments: Make sure that you are using the albuterol inhaler with a spacer. Follow-up with your doctor for further care. Return if you worsen Discharge Date/Time: 05/27/20 14:20
[2020-05-27 14:06] VITALS: BP 115/83
== END 2020-05-27 14:20 | disposition home or self-care (01) ==
LOC: ED 11:59
DX: O99.513 Diseases of the respiratory system complicating pregnancy, third trimester (principal); J45.909 Unspecified asthma, uncomplicated; Z3A.34 34 weeks gestation of pregnancy
CPT/HCPCS: 94640; 99283; 99284

== ENCOUNTER 2020-05-29 15:19 | Outpatient (CLI) | payer OTHER ==
--- NOTE | 2020-05-29 16:34 | Ultrasound Report ---
PROCEDURE: OB F/U or Repeat INDICATIONS: SUPERVISION OF HIGH RISK OUTSIDE/PRIOR DATING DATA: Last menstrual period (LMP): 10/02/2019. LMP-based estimated date of delivery (JIMBO): 07/08/2020. First dating scan (date and location): 11/22/2019[place].. Estimated date of delivery (JIMBO) from first dating scan: 07/04/2020. TECHNIQUE: Real-time scanning was performed of the fetus, with image documentation and biometric measurements. Endovaginal scanning: Yes COMPARISON: None. FINDINGS: General: A single living intrauterine gestation is present. Presentation: Vertex Placenta: Placental position is anterior, without previa. Amniotic fluid index: 18 cm, 73rd percentile for gestational age. heart rate: 143 beats per minute. Maternal cervical canal: Closed, 3.9 cm cm long; normal length is 2.5 cm or more. biometrics: Biparietal diameter: 37 weeks 4 days Head circumference: 37 weeks 2 days Abdominal circumference: 38 weeks 2 days Femur length: 35 weeks 1 day Estimated gestational age from initial scan: not applicable. Composite gestational age from present scan: 34 weeks 6 days Estimated weight and percentile: 3186 g, 97th percentile Measurement variability in biometric dating: +/- 10 days from 12-20 weeks gestation, +/- 2 weeks from 20-30 weeks gestation, +/- 3 weeks at 30 weeks gestation or more. anatomy: Both maternal ovaries are normal. Both kidneys are identified and are normal. Chest, abdomen, and sto mach are grossly normal. Urinary bladder is normal. Other: Not applicable. IMPRESSION: 1. Live intrauterine with a estimated weight of 3186 g, 97th percentile. 2. Normal MASTER. 3. Abdominal circumference and estimated weight are asymmetrically increased. Reviewed by: Mukund Powell on 05/29/2020 4:33 PM PST Approved by: Mukund Powell on 05/29/2020 4:33 PM PST Station ID: [id number]
== END 2020-05-29 15:20 | disposition home or self-care (01) ==
LOC: DI 15:19
PROVIDERS: ATTEND Obstetrics & Gynecology
DX: O09.90 Supervision of high risk pregnancy, unspecified, unspecified trimester (principal); Z36.88 Encounter for antenatal screening for fetal macrosomia

== ENCOUNTER 2020-06-02 14:47 | Outpatient (CLI) | payer OTHER ==
[2020-06-02 15:13] VITALS: BP 117/78
[2020-06-02 15:25] LABS: BASOPHILS % (AUTO) 0.4 %; EOSINOPHILS # (AUTO) 0.1 10^3/uL (0.0-0.7); EOSINOPHILS % (AUTO) 1.5 %; LYMPHOCYTES # (AUTO) 1.9 10^3/uL (1.5-3.5); LYMPHOCYTES % (AUTO) 23.3 %; MEAN CORPUSCULAR HEMOGLOBIN 25.2 pg (27.0-31.0); MEAN CORPUSCULAR HGB CONC 31.4 g/dL (32.0-36.0); MEAN CORPUSCULAR VOLUME 80.3 fL (81.0-99.0); MONOCYTES # (AUTO) 0.6 10^3/uL (0.0-1.0); MONOCYTES % (AUTO) 7.7 %; NEUTROPHILS # (AUTO) 5.5 10^3/uL (1.5-6.6); NEUTROPHILS % (AUTO) 66.1 %; PLT - PLATELET COUNT 197 10^3/uL (130-450); RED BLOOD COUNT 4.36 10^6/uL (4.20-5.40); RED CELL DISTRIBUTION WIDTH 15.9 % (12.0-15.0); WHITE BLOOD COUNT 8.2 x10^3/uL (4.8-10.8)
[2020-06-02 15:30] LABS: ALBUMIN 2.5 g/dL (3.2-5.5); ALBUMIN/GLOBULIN RATIO 0.6 (1.0-2.2); BILIRUBIN,TOTAL 0.6 mg/dL (0.2-1.0); CALCIUM 8.9 mg/dL (8.5-10.3); CREATININE 0.7 mg/dL (0.4-1.0); TOTAL PROTEIN 6.5 g/dL (6.7-8.2)
[2020-06-02 15:56] LABS: BILIRUBIN,URINE NEGATIVE (NEGATIVE); GLUCOSE, URINE (UA) NEGATIVE (NEGATIVE); KETONES,URINE (UA) NEGATIVE (NEGATIVE); LEUKOCYTE ESTERASE, URINE SMALL (NEGATIVE); NITRITE,URINE NEGATIVE (NEGATIVE); OCCULT BLOOD,URINE NEGATIVE (NEGATIVE); PH,URINE 6.5 PH (5.0-7.5); PROTEIN,URINE NEGATIVE (NEGATIVE); UROBILINOGEN,URINE 0.2 (NORMAL) E.U./dL (NORMAL)
[2020-06-02 16:09] LABS: CLARITY,URINE CLOUDY (CLEAR)
[2020-06-02 16:30] LABS: BACTERIA,URINE Few /HPF (None Seen); RBC,URINE 0-5 /HPF (0-5); SQUAMOUS EPITHELIAL CELL,UR NONE SEEN (<= Few)
[2020-06-02] MEDS ORDERED: oxyCODONE 5 MG TABLET PO PRN (17:10)
--- NOTE | 2020-06-03 00:43 | PROCEDURE REPORT ---
- HPI Diagnosis/Indication for NST: Other (left flank pain) Current EDU 07/08/20 Gestation 34 Weeks and 6 Days 2 Para 1 Vital Signs Temperature 98.8 F 06/02/20 15:05 Heart Rate 107 H 06/02/20 15:05 Respiratory Rate 22 06/02/20 15:05 Blood Pressure 117/78 06/02/20 15:05 O2 Saturation 100 06/02/20 15:05 Temperature 98.8 F 06/02/20 15:44 Heart Rate 95 06/02/20 15:44 Respiratory Rate 24 06/02/20 15:44 Blood Pressure 117/78 06/02/20 15:44 O2 Saturation 100 06/02/20 15:44 - NST Procedure Category 1 [place] neg - Results and Plan Findings/Impression: Was at home, coughed hard, felt a pop in her ribs on the lower posterior left side. Instant 10/10 pain. Still present, superficial, pleuritic, worse with coughing. Hx of asthma and has been using her albuterol q4h for quite some time. AVSS Clutching her left flank, breathing shallowly, coughing gingerly Normal CBC, CMP, UA. A/P: 35yo with costochondral separation from coughing. Complicated by sub-opti flor treated asthma. Will increase flovent from 110mcg bid to 500mcg bid. To get her through this pain episode, will add ambien x5d, oxcodone #12, tessalon PRN, tylenol PRN. Try heat and ice, topicals, and sleep in recliner. Has a OB FUV this week. well being is reassuring. Incidental BV seen on wet mount--will treat with flagyl.
== END 2020-06-02 17:35 | disposition home or self-care (01) ==
LOC: WFO 14:47 → FBP 14:49 → WFO 17:35
PROVIDERS: ATTEND Obstetrics & Gynecology
DX: O9A.213 Injury, poisoning and certain other consequences of external causes complicating pregnancy, third trimester (principal); S23.29XA Dislocation of other parts of thorax, initial encounter; X50.3XXA Overexertion from repetitive movements, initial encounter; O99.513 Diseases of the respiratory system complicating pregnancy, third trimester; J45.909 Unspecified asthma, uncomplicated; Z3A.34 34 weeks gestation of pregnancy; Z79.51 Long term (current) use of inhaled steroids
CPT/HCPCS: 80053; 81001; 82731; 85025; 87081; 87086; 87210; 99213; A9270; 87797

== ENCOUNTER 2020-06-10 12:03 | Outpatient (CLI) | payer OTHER ==
[2020-06-10] MEDS ORDERED: BETAMETHASONE 30 MG/5 ML VIAL IM ONE (12:11)
[2020-06-10 12:52] VITALS: BP 125/83
== END 2020-06-10 12:53 | disposition home or self-care (01) ==
LOC: WFO 12:03 → FBP 12:06 → WFO 12:53
PROVIDERS: ATTEND Obstetrics & Gynecology
DX: Z20.828 Contact with and (suspected) exposure to other viral communicable diseases (principal)

== ENCOUNTER 2020-06-11 11:59 | Outpatient (CLI) | payer OTHER ==
[2020-06-11] MEDS ORDERED: BETAMETHASONE 30 MG/5 ML VIAL IM ONE (12:13)
[2020-06-11 12:20] VITALS: BP 134/81
--- NOTE | 2020-07-03 14:51 | PROVIDER PROGRESS NOTE ---
Subjective - Prog Note Date Prog Note Date: 06/11/20 Prog Note Time: 13:00 - Subjective Subjective: Patient is a 35 yo at 3^+1 wga with a a hx of 33 week delivery via CS for bleeding previa with CS scheduled at 37 weeks here for BMZ injection. Patient was not seen by this provider. She presented to receive a dose of betamethasone to prevent respiratory distress. Patient is scheduled for CS at 37 weeks due to high uterine incision on prior CS. Given that patient will be early term and could possibly deliver an more developmentally consistent with late , patient was given betamethasone as a preventive measure. Nursing documentation indicates that the injection was given without complication. Final DX: Anticipate early term delivery Increased risk of respiratory distress.
== END 2020-06-11 12:40 | disposition home or self-care (01) ==
LOC: WFO 11:59 → FBP 12:09 → WFO 12:40
PROVIDERS: ATTEND Obstetrics & Gynecology
DX: O09.899 Supervision of other high risk pregnancies, unspecified trimester (principal); O34.218 Maternal care for other type scar from previous cesarean delivery; Z3A.00 Weeks of gestation of pregnancy not specified
CPT/HCPCS: 96372

== ENCOUNTER 2020-06-17 05:45 | Inpatient (IN) | payer OTHER ==
[~2020-06-17 05:45] MED LIST changes: -BETAMETHASONE 30 MG/5 ML VIAL IM SCH; -BETAMETHASONE 30 MG/5 ML VIAL ONE; -CITRIC ACID/SODIUM CITRATE 15 ML UDC PO ONE; -LACTATED RINGERS 1,000 ML IV ONE; +LACTATED RINGERS 1,000 ML IV SCH; -ceFAZolin 2 GM in SODIUM CHLORIDE 0.9% MINIBAG 100 ML IV SCH
[2020-06-17] MEDS ORDERED: TERBUTALINE 1 MG/ML VIAL SUBQ ONE (06:21)
[2020-06-17] MEDS ORDERED: LACTATED RINGERS 500 ML IV ONE (06:25)
[2020-06-17] MEDS ORDERED: ceFAZolin 1 GM VIAL ONE (06:31)
[2020-06-17 06:48] LABS: BASOPHILS % (AUTO) 0.4 %; EOSINOPHILS # (AUTO) 0.1 10^3/uL (0.0-0.7); EOSINOPHILS % (AUTO) 1.1 %; HGB - HEMOGLOBIN 10.7 g/dL (12.0-16.0); LYMPHOCYTES # (AUTO) 2.6 10^3/uL (1.5-3.5); LYMPHOCYTES % (AUTO) 23.4 %; MEAN CORPUSCULAR HEMOGLOBIN 24.5 pg (27.0-31.0); MEAN CORPUSCULAR HGB CONC 30.4 g/dL (32.0-36.0); MEAN CORPUSCULAR VOLUME 80.5 fL (81.0-99.0); MEAN PLATELET VOLUME 11.1 fL (7.9-10.8); MONOCYTES # (AUTO) 0.8 10^3/uL (0.0-1.0); MONOCYTES % (AUTO) 6.8 %; NEUTROPHILS # (AUTO) 7.2 10^3/uL (1.5-6.6); NEUTROPHILS % (AUTO) 65.3 %; PLT - PLATELET COUNT 205 10^3/uL (130-450); RED BLOOD COUNT 4.37 10^6/uL (4.20-5.40); RED CELL DISTRIBUTION WIDTH 17.1 % (12.0-15.0)
[2020-06-17] MEDS ORDERED: ACETAMINOPHEN 1,000 MG/100 ML 100 ML IV ONE ×2 (07:00→14:08)
[2020-06-17] MEDS ORDERED: ceFAZolin 2 GM in SODIUM CHLORIDE 0.9% 100ML 100 ML IV ONE (07:00)
[2020-06-17] MEDS ORDERED: CITRIC ACID/SODIUM CITRATE 15 ML UDC PO ONE (07:00)
--- NOTE | 2020-06-17 07:07 | ANESTHESIA ---
Pre-Anesthesia VS, & Labs - Diagnosis previous c/s - Procedure repeat c/s Vital Signs: Temp Pulse Resp BP Pulse Ox 36.8 C 96 18 138/81 H 06/17/20 06:39 06/17/20 05:50 06/17/20 05:50 06/17/20 05:50 Height: 5 ft 2 in Weight (kg): 83.007 kg Body Mass Index: 33.5 BMI Classification: Obese - NPO >8 hours - Is Patient ?: Yes - Lab Results Current Lab Results: Laboratory Tests 06/17/20 06:10: WBC 11.0 H, RBC 4.37, Hgb 10.7 L, Hct 35.2 L, MCV 80.5 L, MCH 24.5 L, MCHC 30.4 L, RDW 17.1 H, Plt Count 205, MPV 11.1 H, Neut # (Auto) 7.2 H, Lymph # (Auto) 2.6, [place] # (Auto) 0.8, Eos # (Auto) 0.1, Baso # (Auto) 0.0, Absolute Nucleated RBC 0.31, Nucleated RBC % 2.8 Fish Bones: 06/17/20 06:10 Home Medications and Allergies Active Medications Acetaminophen (Ofirmev) 100 mls @ 400 mls/hr IV ONCE ONE Stop: 06/17/20 07:14 Cefazolin Sodium 2 gm/ Sodium (Chloride) 100 mls @ 200 mls/hr IV ONCE ONE Stop: 06/17/20 07:29 Last Admin: 06/17/20 06:29 Dose: 200 mls/hr Documented by: Lactated Ringer's (Lr) 1,000 mls @ 0 mls/hr IV .Q0M KEISHA albuterol and flovent Allergies/Adverse Reactions: Allergies Allergy/AdvReac Type Severity Reaction Status Date / Time Sulfa (Sulfonamide Allergy Nausea Verified 05/27/20 12:15 Antibiotics) Anes History & Medical History - Anesthetic History Anesthesia Complications: reports: No previous complications - Medical History Cardiovascular: reports: None Pulmonary: reports: Asthma Gastrointestinal: reports: GERD, Ulcers Urinary: reports: None Neuro: reports: None Musculoskeletal: reports: None Endocrine/Autoimmune: reports: None Blood Disorders: reports: None Skin: reports: None Smoking Status: Never smoker Psychosocial: reports: No issues indicated History of Cancer?: No - Surgical History Gynecologic: section Orthopedic: Other (wrist) - Obstetrical History : 2 Parity: 1 Events: positive: Other (previous high transverse uterine incison) - Other History Other History: in labor Exam General: Alert, Oriented x3, Cooperative, No acute distress Dental: WNL Mouth Openin Fingerbreadth Neck Mobility: Normal Mallampati classification: II Mental/Cognitive Status: Alert/Oriented X3, Normal for patient Plan Anesthesia Type: Spinal Consent for Procedure(s) Verified and Reviewed: Yes Code Status: Attempt Resuscitation ASA classification: 2-Mild systemic disease Is this case an emergency?: No
--- NOTE | 2020-06-17 07:11 | HISTORY & PHYSICAL EXAMINATION ---
Admit History - Visit Reason Visit Reason: Contractions, Other (Scheduled for repeat CS today and presented in labor) - Risk/History: positive: Previous Complications This : positive: None Smoking Status: Never smoker - Mother's Labs Mother's Blood Type: positive: O Mother's RH: positive: Positive Rubella Status: positive: Immune - Other Maternal History Other Maternal History: Patient is a 35 yo at 37+0 wga with a a hx of 33 week delivery via CS for bleeding previa. Has high incision on the uterus and earlier delivery was recommended. Started rachel this am. Scheduled for CS at 7:30 am. No bleeding or LOF. Was given terbutaline x1 and contractions have slowed. S>G: EFW 97%ile on 05/29/2020 BMZ given last week Rx for vitamin D provided Declines BTL TDAP given O pos/Rub imm NIPT 46 XY, AFP wnl Declined carrier screening as completing in prior Declined early glucola FAS 02/19/20 Anterior placenta, CL 5.1, 3VC, FAS wnl EFW 74%ile Flu vax: 04/01/20 TDAP 05/06/20 Glucola 133 HCT 36.2 HSV: denies GBS neg Scheduled repeat at 37-38 weeks per MFM. Declines BTL Pap NILM/HPV 12/04/2019 Meds/Allgy - Home Medications Home Medications: Ambulatory Orders Medication Instructions Recorded Confirmed Celecoxib [CeleBREX] 200 mg PO BID PRN #40 capsule 03/24/18 Docusate Sodium [Dulcolax Stool 100 mg PO BID PRN #60 capsule 03/24/18 Softener] Fluticasone [Flonase] 1 sprays NEIDA DAILY bottle 03/24/18 oxyCODONE [Roxicodone] 5 - 10 mg PO Q4H PRN #20 tablet 03/24/18 Methylergonovine Maleate 0.2 mg PO TID #9 tablet 04/08/18 [Methergine] Ondansetron Odt [Zofran] 4 mg TL Q6H PRN #15 tablet 04/08/18 Nitrofurantoin [Macrobid] 100 mg PO BID #14 capsule 04/10/18 Hydrocodone/Acetaminophen 1 - 2 each PO Q6H PRN #14 tablet 05/29/18 [Hydrocodon-Acetaminophen 5-325] Acetaminophen [Tylenol] 650 mg PO Q6H #30 tab 06/02/20 Acetaminophen [Tylenol] 650 mg PO Q6H PRN #30 tab 06/02/20 Benzonatate [Tessalon] 100 mg PO TID PRN #18 capsule 06/02/20 Fluticasone Propionate [Flovent 500 mcg IH BID #2 blst.w.dev 06/02/20 Diskus] Fluticasone Propionate [Flovent 500 mcg IH BID #2 blst.w.dev 06/02/20 Diskus] Zolpidem [Ambien] 5 mg PO HS PRN #5 tablet 06/02/20 Zolpidem [Ambien] 5 mg PO HS PRN #5 tablet 06/02/20 oxyCODONE [Roxicodone] 5 mg PO Q4-6H PRN #12 tablet 06/02/20 oxyCODONE [Roxicodone] 5 mg PO Q4-6H PRN #12 tablet 06/02/20 - Allergies Allergies/Adverse Reactions: Allergies Allergy/AdvReac Type Severity Reaction Status Date / Time Sulfa (Sulfonamide Allergy Nausea Verified 05/27/20 12:15 Antibiotics) Review of Systems - Other Findings Other Findings: As per HPI, otherwise remaining systems are negative. Physical - Abdominal Exam Vital Signs: Temp Pulse Resp BP Pulse Ox 98.2 F 96 18 138/81 H 06/17/20 06:39 06/17/20 05:50 06/17/20 05:50 06/17/20 05:50 Contraction Frequency (min/apart): Q2-3 min Contraction Intensity: positive: Moderate - Monitoring Heart Rate Baseline: 150 mod robyn 10x10 accels no decels Strip Review: positive: Category I - Presentation Presentation: positive: Vertex - Vaginal Exam Membranes: positive: Membranes intact Dilation (in cm): Too high for assessment per RN exam Plan for Labor - Plan For Labor Plan for Labor: Confirmed consent for CS Proceeding directly to OR. Reviewed risks/benefits/alternatives to Risks include, but are not limited to, bleeding, infection, damage to neatby tissue and organs. On average, EBL of up to 1 liter is considered within normal limits for CS. Risks of blood transfusion include infection Risk of HIV 1/2million nationwide Risk of Hepatitis 1/1 million Risks of transfusion reaction -T&C for 2 units Infection risk moderate given clean/contaminated nature of procedure and IV antibiotics will be given. Damage to nearby tissue and organs including bladder, bowel, ureters, blood vessels, nerves, and fetus Damage may be noted intra-op and may be delayed until after the procedure is complete Reviewed management of complications and efforts to avoid such outcomes but reviewed that they may occur despite our best efforts Confirmed that sterlization is NOT desired
[2020-06-17] MEDS ORDERED: MORPHINE PF 5 MG/10 ML VIAL ONE (07:14)
[2020-06-17] MEDS ORDERED: fentaNYL 100 MCG/2 ML VIAL ONE (07:14)
[2020-06-17] MEDS ORDERED: ONDANSETRON 4 MG/2 ML VIAL ONE (07:14)
[2020-06-17] MEDS ORDERED: OXYTOCIN 10 UNIT/ML VIAL ONE (07:14)
[2020-06-17] MEDS ORDERED: MORPHINE PF 5 MG/10 ML VIAL IT ONE (07:25)
[2020-06-17] MEDS ORDERED: fentaNYL 100 MCG/2 ML VIAL IT ONE (07:25)
[2020-06-17] MEDS ORDERED: HYDROmorphone 0.5 MG/0.5 ML SYRINGE IVP PRN ×2 (07:28→08:10)
[2020-06-17] MEDS ORDERED: ONDANSETRON 4 MG/2 ML VIAL IVP PRN ×3 (07:28→08:10)
[2020-06-17] MEDS ORDERED: NALOXONE 0.4 MG/ML VIAL IVP PRN ×3 (07:28→08:10)
[2020-06-17] MEDS ORDERED: MORPHINE 2 MG/ML CARPUJECT IVP PRN ×2 (07:28→08:10)
[2020-06-17] MEDS ORDERED: ATROPINE ABBOJECT 1 MG/10 ML SYRINGE IVP PRN ×2 (07:28→08:10)
[2020-06-17] MEDS ORDERED: fentaNYL 100 MCG/2 ML VIAL IVP PRN ×2 (07:28→08:10)
[2020-06-17] MEDS ORDERED: BUPIVACAINE 0.5%-EPI 1:200000 PF 30 ML VIAL ONE (07:52)
[2020-06-17] MEDS ORDERED: BUPIVACAINE 0.5%-EPI 1:200000 PF 30 ML VIAL SUBQ ONE (07:54)
[2020-06-17] MEDS ORDERED: LACTATED RINGERS 1,000 ML IV SCH ×3 (08:00→10:00)
[2020-06-17] MEDS ORDERED: METOCLOPRAMIDE 10 MG/2 ML VIAL IVP PRN ×3 (08:10→12:47)
[2020-06-17] MEDS ORDERED: NALBUPHINE 10 MG/ML AMP IVP PRN (08:10)
[2020-06-17] MEDS ORDERED: ePHEDrine 50 MG/ML VIAL IVP PRN ×2 (08:10)
[2020-06-17] MEDS ORDERED: diphenhydrAMINE INJ 50 MG/ML VIAL IVP PRN (08:10)
[2020-06-17] MEDS ORDERED: SODIUM CHLORIDE FLUSH 0.9% 10 ML SYRINGE IVP PRN (09:38)
[2020-06-17] MEDS ORDERED: ONDANSETRON ODT 4 MG TABLET TL PRN (09:38)
[2020-06-17] MEDS ORDERED: OXYTOCIN/SODIUM CHLORIDE 500 ML IV PRN (09:38)
[2020-06-17] MEDS ORDERED: SODIUM CHLORIDE 0.9% 500 ML IV ONE (09:41)
--- NOTE | 2020-06-17 09:46 | OPERATIVE REPORT ---
Operative Report - General Admit Date: 06/17/20 Procedure Date: 06/17/20 Planned Procedure: Repeat low transverse Pre-Op Diagnosis: Hx of prior with high incision; IUP at 37 weeks, Labor Post Op Diagnosis: Same and delivery of term gestation - Procedure Note Primary Surgeon: Christiane Robles MD Secondary Surgeon: Megan Larry MD Anesthesia Provider: Elsa Macias CRNA Pathology: Routine for discard IV Fluids (mL): 1,200 (NS) Estimated Blood Loss (mL): 650 Urine Output (mL): 200 Indications: Patient is a 35 yo at 37+0 wga with hx of prior CS at 33 weeks iwth incision made above the lower uterine segment. Because of the location of the prior incision, [facility] had recommended delivery at 37-38 wga. Patient was scheduled for CS this am but presented an hour earlier than intended time of surgery with onset of labor. She received a dose of terbutaline and we proceeded to the OR for repeat low transverse . Findings: Normal appearing uterus, tubes, and ovaries. Male in vertex presentation, Apgars 8/8 weighing 4210g. Meconium stained fluid. Complications: None - Other Other Information/Narrative: Risks benefits and alternatives of the procedure were discussed. Written informed consent was obtained. Patient was taken to the operating room where spinal anesthesia was placed and found to be adequate. She was prepped and draped in the usual sterile fashion in the dorsal supine position with a leftward tilt. Burrell catheter was in place. SCDs were in place and activated. Cefazolin 2 g IV was given as a preoperative antibiotic. Preoperative timeout was performed. A total of 20 cc of 0.50% bupivicaine with epinephrine was injected into the suture line prior to making the incision. A Pfannenstiel incision was made in the skin with a scalpel and carried through the underlying layer of fascia in a combination of sharp and blunt dissection. The fascia was incised in the midline, and the incision was extended laterally with the Linton scissors. The superior aspect of the fascial incision was grasped with the Sangeetha clamps, elevated, and the underlying rectus muscles were dissected off bluntly and sharply using the Linton scissors. Attention was then turned to the inferior aspect of the incision which in a similar fashion was grasped, tented up with Sangeetha clamps, and the underlying rectus muscles dissected off bluntly and sharply using Linton scissors. The rectus muscles were then in the midline. The peritoneum was identified, tented up, and entered bluntly. The peritoneal incision was extended superiorly and inferiorly with good visualization of the bladder. The bladder that blade was then inserted. A bladder flap was not created. The lower uterine segment of the uterus was identified, and incised in a transverse fashion with a scalpel. The uterus was entered bluntly. The uterine incision was extended in a craniocaudal fashion by manual stretch. The bladder blade was removed. The infant was delivered from from vertex position. Baby was wrapped in a warm sterile towel. Delayed cord clamping was performed. After cessation of pulsations, the cord was clamped x2 and cut. The was handed off to the waiting pediatricians. The placenta was removed with manual expression. The uterus was NOT exteriorized. It was cleared of all clots clots and debris via manual swipe using Ray-Saul x2. The uterine incision was then repaired in a running locked fashion using 0 Vicryl suture. The incision was reinforced with a running imbricating layer again using 0-Vicryl suture. Excellent hemostasis was obtained. The gutters were cleared of all clots and debris. The pelvis was irrigated with sloppy wet lap sponges. The uterine defect was well visualized in normal anatomic position it was noted again to be hemostatic. The peritoneum was then reapproximated with 2-0 Vicryl in a running fashion. The rectus muscles were then reapproximated using interrupted [id number] sutures using 2-0 Chromic. Good hemostasis was noted. The fascia was then closed using 0 Vicryl in a running fashion starting from the left lateral edge to the midline. A second suture was used to close the fascia in a running fashion starting from the right lateral edge and meeting in the midline, agian using 0-Vicryl. The subcutaneous tissue was then irrigated and closed using 2-0 chromic in a running subcutaneous suture. Skin was closed in a running subcuticular suture using 4-0 Monocryl. Steri-Strips were applied to reinforce the incsion and dressing was applied. Procedure was well-tolerated and without complication. Sponge lap and needle counts were correct x2. Patient was taken to recovery room in stable condition. Dr. Larry assisted with retraction, delivery of the , and suturing.
[2020-06-17] MEDS ORDERED: IBUPROFEN 600 MG TABLET PO SCH (10:00)
[2020-06-17] MEDS ORDERED: ACETAMINOPHEN 500 MG TABLET PO SCH (10:00)
[2020-06-17] MEDS ORDERED: KETOROLAC 30 MG/ML VIAL IVP SCH (10:00)
--- NOTE | 2020-06-17 11:24 | ANESTHESIA POST OP EVALUATION ---
Anesthesia Post Eval - Post Anesthesia Eval Vitals: Last Vital Signs Temp 36.4 C L 06/17/20 10:00 Pulse 99 06/17/20 10:00 Resp 22 06/17/20 10:00 BP 159/96 H 06/17/20 10:00 Pulse Ox 99 06/17/20 10:00 CV Function Including HR & BP: positive: Stable Pain Control: positive: Satisfactory Nausea & Vomiting: positive: Negative Mental Status: positive: Baseline Respiratory Status: Airway Patent Hydration Status: Satisfactory Anesthesia Complications: positive: None
[2020-06-17] MEDS: SODIUM CHLORIDE FLUSH 0.9% 10 ML SYRINGE IVP SCH (12:37)
[2020-06-17] MEDS: DOCUSATE SODIUM 100 MG CAPSULE PO SCH (12:52)
[2020-06-17 14:45] LABS: BASOPHILS % (AUTO) 0.2 %; EOSINOPHILS % (AUTO) 0.1 %; HGB - HEMOGLOBIN 9.7 g/dL (12.0-16.0); LYMPHOCYTES # (AUTO) 1.6 10^3/uL (1.5-3.5); LYMPHOCYTES % (AUTO) 8.1 %; MEAN CORPUSCULAR HEMOGLOBIN 24.5 pg (27.0-31.0); MEAN CORPUSCULAR VOLUME 81.6 fL (81.0-99.0); MONOCYTES # (AUTO) 1.2 10^3/uL (0.0-1.0); MONOCYTES % (AUTO) 6.3 %; NEUTROPHILS # (AUTO) 16.4 10^3/uL (1.5-6.6); NEUTROPHILS % (AUTO) 84.2 %; PLT - PLATELET COUNT 183 10^3/uL (130-450); RED BLOOD COUNT 3.96 10^6/uL (4.20-5.40); RED CELL DISTRIBUTION WIDTH 17.2 % (12.0-15.0); WHITE BLOOD COUNT 19.4 x10^3/uL (4.8-10.8)
[2020-06-17 14:57] LABS: ALBUMIN 2.2 g/dL (3.2-5.5); ALBUMIN/GLOBULIN RATIO 0.7 (1.0-2.2); BILIRUBIN,TOTAL 0.7 mg/dL (0.2-1.0); CREATININE 1.1 mg/dL (0.4-1.0); TOTAL PROTEIN 5.5 g/dL (6.7-8.2)
[2020-06-17] MEDS ORDERED: MAGNESIUM SULFATE 4 GRAM 4 GM/50 ML BAG IV ONE (15:24)
--- NOTE | 2020-06-17 16:14 | PROVIDER PROGRESS NOTE ---
Subjective - Prog Note Date Prog Note Date: 06/17/20 Prog Note Time: 16:12 - Subjective Subjective: Patient was reported to have had consistently elevated blood pressures in the mild range. Also with marked nausea/vomiting with poor response to Zofran and Reglan. [facility] labs were sent. Creatinine elevated at 1.1, compared to 0.7 on 06/02/2020. LFTs were also elevated with both AST and ALT in the 170s. Glucose 73, fasting range despite patient attempting po intake. Has been sensitive to fundal exams. No headache. Feels very tired and "heavy". Denies RUQ pain. Objective - Vital Signs/Intake & Output Reviewed Vital Signs: Yes Vital Signs: Vital Signs x48h Temp Pulse Resp BP Pulse Ox 06/17/20 10:00 97.5 F L 99 22 159/96 H 99 06/17/20 09:50 97.5 F L 113 H 20 148/90 H 96 06/17/20 09:45 115 H 19 130/99 H 98 06/17/20 09:40 97.3 F L 79 19 139/105 H 100 06/17/20 09:35 89 22 152/103 H 99 06/17/20 09:30 81 22 136/93 H 98 06/17/20 09:25 97.5 F L 98 21 141/95 H 98 06/17/20 09:20 97.5 F L 104 H 16 123/71 100 Intake & Output: Intake & Output 06/14/20 06/15/20 06/16/20 06/17/20 23:59 23:59 23:59 23:59 Intake Total 450 Balance 450 - Objective General Appearance: positive: Lethargic Eyes Bilateral: positive: No scleral icterus, Other Respiratory: positive: No respiratory distress, Breath sounds nml Cardiovascular: positive: Regular rate & rhythm Abdomen: positive: Other (Mild tenderness to deep palpation in RUQ. Appropriately TTP at fundus.) Skin: positive: Color nml Neurologic/Psychiatric: positive: Other (Interactive and coherent, very sleepy appearing) - Lab Results Fish Bones: 06/17/20 14:35 06/17/20 14:35 Other Labs: Lab Results x24hrs 06/17/20 06/17/20 06/17/20 Range/Units 14:35 14:35 06:10 WBC 19.4 H 11.0 H (4.8-10.8) x10^3/uL RBC 3.96 L 4.37 (4.20-5.40) 10^6/uL Hgb 9.7 L 10.7 L (12.0-16.0) g/dL Hct 32.3 L 35.2 L (37.0-47.0) % MCV 81.6 80.5 L (81.0-99.0) fL MCH 24.5 L 24.5 L (27.0-31.0) pg MCHC 30.0 L 30.4 L (32.0-36.0) g/dL RDW 17.2 H 17.1 H (12.0-15.0) % Plt Count 183 205 (130-450) 10^3/uL MPV 11.0 H 11.1 H (7.9-10.8) fL Neut # (Auto) 16.4 H 7.2 H (1.5-6.6) 10^3/uL Lymph # (Auto) 1.6 2.6 (1.5-3.5) 10^3/uL [place] # (Auto) 1.2 H 0.8 (0.0-1.0) 10^3/uL Eos # (Auto) 0.0 0.1 (0.0-0.7) 10^3/uL Baso # (Auto) 0.0 0.0 (0.0-0.1) 10^3/uL Absolute Nucleated RBC 0.19 0.31 x10^3/uL Nucleated RBC % 1.0 2.8 /100WBC Sodium 139 (135-145) mmol/L Potassium 4.1 (3.5-5.0) mmol/L Chloride 110 (101-111) mmol/L Carbon Dioxide 20 L (21-32) mmol/L Anion Gap 9.0 (6-13) BUN 15 (6-20) mg/dL Creatinine 1.1 H (0.4-1.0) mg/dL Estimated GFR (MDRD) 57 L (>89) Glucose 73 (70-100) mg/dL Calcium 9.0 (8.5-10.3) mg/dL Total Bilirubin 0.7 (0.2-1.0) mg/dL AST 171 H (10-42) IU/L ALT 174 H (10-60) IU/L Alkaline Phosphatase 211 H (42-121) IU/L Total Protein 5.5 L (6.7-8.2) g/dL Albumin 2.2 L (3.2-5.5) g/dL Globulin 3.3 (2.1-4.2) g/dL Albumin/Globulin Ratio 0.7 L (1.0-2.2) Blood Type Antibody Screen Crossmatch IS Only 06/17/20 Range/Units 06:10 WBC (4.8-10.8) x10^3/uL RBC (4.20-5.40) 10^6/uL Hgb (12.0-16.0) g/dL Hct (37.0-47.0) % MCV (81.0-99.0) fL MCH (27.0-31.0) pg MCHC (32.0-36.0) g/dL RDW (12.0-15.0) % Plt Count (130-450) 10^3/uL MPV (7.9-10.8) fL Neut # (Auto) (1.5-6.6) 10^3/uL Lymph # (Auto) (1.5-3.5) 10^3/uL [place] # (Auto) (0.0-1.0) 10^3/uL Eos # (Auto) (0.0-0.7) 10^3/uL Baso # (Auto) (0.0-0.1) 10^3/uL Absolute Nucleated RBC x10^3/uL Nucleated RBC % /100WBC Sodium (135-145) mmol/L Potassium (3.5-5.0) mmol/L Chloride (101-111) mmol/L Carbon Dioxide (21-32) mmol/L Anion Gap (6-13) BUN (6-20) mg/dL Creatinine (0.4-1.0) mg/dL Estimated GFR (MDRD) (>89) Glucose (70-100) mg/dL Calcium (8.5-10.3) mg/dL Total Bilirubin (0.2-1.0) mg/dL AST (10-42) IU/L ALT (10-60) IU/L Alkaline Phosphatase (42-121) IU/L Total Protein (6.7-8.2) g/dL Albumin (3.2-5.5) g/dL Globulin (2.1-4.2) g/dL Albumin/Globulin Ratio (1.0-2.2) Blood Type O POSITIVE Antibody Screen NEGATIVE Crossmatch IS Only See Detail Assessment/Plan - Problem List (1) Pre-eclampsia Impression: Meeting criteria for preeclampsia with severe features. -Starting magnesium 4 g bolus with 2g/hr infusion Significant nausea with lower range of normal glucose c/f possible fatty liver of -Sending ammonia, INR, fibrinogen, repeat CMP -RUQ us ordered Will check labs Q6H as well as magnesium levels Antihypertensives are not indicated given mild range pressures IV labetalol for SBP 160s or DBPs or 110s Close monitoring
[2020-06-17 16:28] LABS: ALBUMIN 2.1 g/dL (3.2-5.5); ALBUMIN/GLOBULIN RATIO 0.6 (1.0-2.2); BILIRUBIN,TOTAL 0.8 mg/dL (0.2-1.0); CALCIUM 8.6 mg/dL (8.5-10.3); CREATININE 1.1 mg/dL (0.4-1.0); TOTAL PROTEIN 5.7 g/dL (6.7-8.2)
[2020-06-17 16:35] LABS: INR 1.1 (0.8-1.2); PT - PROTHROMBIN TIME 11.8 secs (9.9-12.6)
[2020-06-17] MEDS: MAGNESIUM SULFATE IN WATER 20 GM/500 ML IV.SOLN IV SCH (16:58)
--- NOTE | 2020-06-17 17:17 | Ultrasound Report ---
PROCEDURE: Abdomen Limited INDICATIONS: acute onset transaminitis TECHNIQUE: Real-time focused scanning was performed of the abdomen, with image documentation. COMPARISON: Prior CT abdomen/pelvis 05/25/2019. FINDINGS: The common duct measures up to 2 mm, without evidence of obstruction. It is relatively poo rly visualized, however. The pancreas is not well seen due to overlying bowel gas. The liver itself i s normal and craniocaudad length, but has normal-appearing echotexture. The gallbladder wall was not abnormally thickened and no internal stones are found. Limited assessment of the right upper quadrant also shows normal-appearing right kidney and normal renal cortical thickness. IMPRESSION: Limited evaluation at clinician request, identifying no source of malaise or pain. Suboptimal quality of visualization due to overlying bowel gas and inability of the patient to suspend respiration. Dep ending on the clinical status follow-up by CT scanning may become necessary. Reviewed by: Vincenzo Monson MD on 06/17/2020 5:16 PM PST Approved by: Vincenzo Monson MD on 06/17/2020 5:16 PM PST Station ID: [id number]
[2020-06-17 17:51] LABS: AMYLASE 59 U/L (28-100); LIPASE 34 U/L (22-51)
--- NOTE | 2020-06-17 18:02 | PROVIDER PROGRESS NOTE ---
Subjective - Prog Note Date Prog Note Date: 06/17/20 Prog Note Time: 17:59 - Subjective Subjective: Repeat CMP showed marginal increase in AST/ALT Fibrinogen 259 INR 1.1 Creatinine stable at 1.1 Glucose went from 73--> 70 POC glucose 58 to 53 Ammonia wnl P:C pending BPs mild range. Giving patient a sandwich now. Will check POC glucose in one hour Recheck labs at 20:30 RUQ unremarkable If glucose continues to drop, will consult with [facility] Objective - Vital Signs/Intake & Output Vital Signs: Vital Signs x48h Temp Pulse Resp BP Pulse Ox 06/17/20 10:00 97.5 F L 99 22 159/96 H 99 Intake & Output: Intake & Output 06/14/20 06/15/20 06/16/20 06/17/20 23:59 23:59 23:59 23:59 Intake Total 450 Balance 450 - Lab Results Fish Bones: 06/17/20 14:35 06/17/20 16:07 Other Labs: Lab Results x24hrs 06/17/20 06/17/20 06/17/20 Range/Units 17:47 16:07 16:07 WBC (4.8-10.8) x10^3/uL RBC (4.20-5.40) 10^6/uL Hgb (12.0-16.0) g/dL Hct (37.0-47.0) % MCV (81.0-99.0) fL MCH (27.0-31.0) pg MCHC (32.0-36.0) g/dL RDW (12.0-15.0) % Plt Count (130-450) 10^3/uL MPV (7.9-10.8) fL Neut # (Auto) (1.5-6.6) 10^3/uL Lymph # (Auto) (1.5-3.5) 10^3/uL [place] # (Auto) (0.0-1.0) 10^3/uL Eos # (Auto) (0.0-0.7) 10^3/uL Baso # (Auto) (0.0-0.1) 10^3/uL Absolute Nucleated RBC x10^3/uL Nucleated RBC % /100WBC PT (9.9-12.6) secs INR (0.8-1.2) Fibrinogen (220-496) mg/dL Sodium (135-145) mmol/L Potassium (3.5-5.0) mmol/L Chloride (101-111) mmol/L Carbon Dioxide (21-32) mmol/L Anion Gap (6-13) BUN (6-20) mg/dL Creatinine (0.4-1.0) mg/dL Estimated GFR (MDRD) (>89) Glucose (70-100) mg/dL POC Whole Bld Glucose 58 L* (70 - 100) mg/dL Uric Acid 5.8 (2.6-7.2) mg/dL Calcium (8.5-10.3) mg/dL Total Bilirubin (0.2-1.0) mg/dL AST (10-42) IU/L ALT (10-60) IU/L Alkaline Phosphatase (42-121) IU/L Ammonia 19.9 (7-35) umol/L Total Protein (6.7-8.2) g/dL Albumin (3.2-5.5) g/dL Globulin (2.1-4.2) g/dL Albumin/Globulin Ratio (1.0-2.2) Amylase (28-100) U/L Lipase (22-51) U/L Blood Type Antibody Screen Crossmatch IS Only 06/17/20 06/17/20 06/17/20 Range/Units 16:07 16:07 16:03 WBC (4.8-10.8) x10^3/uL RBC (4.20-5.40) 10^6/uL Hgb (12.0-16.0) g/dL Hct (37.0-47.0) % MCV (81.0-99.0) fL MCH (27.0-31.0) pg MCHC (32.0-36.0) g/dL RDW (12.0-15.0) % Plt Count (130-450) 10^3/uL MPV (7.9-10.8) fL Neut # (Auto) (1.5-6.6) 10^3/uL Lymph # (Auto) (1.5-3.5) 10^3/uL [place] # (Auto) (0.0-1.0) 10^3/uL Eos # (Auto) (0.0-0.7) 10^3/uL Baso # (Auto) (0.0-0.1) 10^3/uL Absolute Nucleated RBC x10^3/uL Nucleated RBC % /100WBC PT 11.8 (9.9-12.6) secs INR 1.1 (0.8-1.2) Fibrinogen 259 (220-496) mg/dL Sodium 137 (135-145) mmol/L Potassium 4.0 (3.5-5.0) mmol/L Chloride 107 (101-111) mmol/L Carbon Dioxide 19 L (21-32) mmol/L Anion Gap 11.0 (6-13) BUN 15 (6-20) mg/dL Creatinine 1.1 H (0.4-1.0) mg/dL Estimated GFR (MDRD) 57 L (>89) Glucose 70 (70-100) mg/dL POC Whole Bld Glucose (70 - 100) mg/dL Uric Acid (2.6-7.2) mg/dL Calcium 8.6 (8.5-10.3) mg/dL Total Bilirubin 0.8 (0.2-1.0) mg/dL AST 173 H (10-42) IU/L ALT 180 H (10-60) IU/L Alkaline Phosphatase 227 H (42-121) IU/L Ammonia (7-35) umol/L Total Protein 5.7 L (6.7-8.2) g/dL Albumin 2.1 L (3.2-5.5) g/dL Globulin 3.6 (2.1-4.2) g/dL Albumin/Globulin Ratio 0.6 L (1.0-2.2) Amylase 59 (28-100) U/L Lipase 34 (22-51) U/L Blood Type Antibody Screen Crossmatch IS Only 06/17/20 06/17/20 06/17/20 Range/Units 14:35 14:35 06:10 WBC 19.4 H 11.0 H (4.8-10.8) x10^3/uL RBC 3.96 L 4.37 (4.20-5.40) 10^6/uL Hgb 9.7 L 10.7 L (12.0-16.0) g/dL Hct 32.3 L 35.2 L (37.0-47.0) % MCV 81.6 80.5 L (81.0-99.0) fL MCH 24.5 L 24.5 L (27.0-31.0) pg MCHC 30.0 L 30.4 L (32.0-36.0) g/dL RDW 17.2 H 17.1 H (12.0-15.0) % Plt Count 183 205 (130-450) 10^3/uL MPV 11.0 H 11.1 H (7.9-10.8) fL Neut # (Auto) 16.4 H 7.2 H (1.5-6.6) 10^3/uL Lymph # (Auto) 1.6 2.6 (1.5-3.5) 10^3/uL [place] # (Auto) 1.2 H 0.8 (0.0-1.0) 10^3/uL Eos # (Auto) 0.0 0.1 (0.0-0.7) 10^3/uL Baso # (Auto) 0.0 0.0 (0.0-0.1) 10^3/uL Absolute Nucleated RBC 0.19 0.31 x10^3/uL Nucleated RBC % 1.0 2.8 /100WBC PT (9.9-12.6) secs INR (0.8-1.2) Fibrinogen (220-496) mg/dL Sodium 139 (135-145) mmol/L Potassium 4.1 (3.5-5.0) mmol/L Chloride 110 (101-111) mmol/L Carbon Dioxide 20 L (21-32) mmol/L Anion Gap 9.0 (6-13) BUN 15 (6-20) mg/dL Creatinine 1.1 H (0.4-1.0) mg/dL Estimated GFR (MDRD) 57 L (>89) Glucose 73 (70-100) mg/dL POC Whole Bld Glucose (70 - 100) mg/dL Uric Acid (2.6-7.2) mg/dL Calcium 9.0 (8.5-10.3) mg/dL Total Bilirubin 0.7 (0.2-1.0) mg/dL AST 171 H (10-42) IU/L ALT 174 H (10-60) IU/L Alkaline Phosphatase 211 H (42-121) IU/L Ammonia (7-35) umol/L Total Protein 5.5 L (6.7-8.2) g/dL Albumin 2.2 L (3.2-5.5) g/dL Globulin 3.3 (2.1-4.2) g/dL Albumin/Globulin Ratio 0.7 L (1.0-2.2) Amylase (28-100) U/L Lipase (22-51) U/L Blood Type Antibody Screen Crossmatch IS Only 06/17/20 Range/Units 06:10 WBC (4.8-10.8) x10^3/uL RBC (4.20-5.40) 10^6/uL Hgb (12.0-16.0) g/dL Hct (37.0-47.0) % MCV (81.0-99.0) fL MCH (27.0-31.0) pg MCHC (32.0-36.0) g/dL RDW (12.0-15.0) % Plt Count (130-450) 10^3/uL MPV (7.9-10.8) fL Neut # (Auto) (1.5-6.6) 10^3/uL Lymph # (Auto) (1.5-3.5) 10^3/uL [place] # (Auto) (0.0-1.0) 10^3/uL Eos # (Auto) (0.0-0.7) 10^3/uL Baso # (Auto) (0.0-0.1) 10^3/uL Absolute Nucleated RBC x10^3/uL Nucleated RBC % /100WBC PT (9.9-12.6) secs INR (0.8-1.2) Fibrinogen (220-496) mg/dL Sodium (135-145) mmol/L Potassium (3.5-5.0) mmol/L Chloride (101-111) mmol/L Carbon Dioxide (21-32) mmol/L Anion Gap (6-13) BUN (6-20) mg/dL Creatinine (0.4-1.0) mg/dL Estimated GFR (MDRD) (>89) Glucose (70-100) mg/dL POC Whole Bld Glucose (70 - 100) mg/dL Uric Acid (2.6-7.2) mg/dL Calcium (8.5-10.3) mg/dL Total Bilirubin (0.2-1.0) mg/dL AST (10-42) IU/L ALT (10-60) IU/L Alkaline Phosphatase (42-121) IU/L Ammonia (7-35) umol/L Total Protein (6.7-8.2) g/dL Albumin (3.2-5.5) g/dL Globulin (2.1-4.2) g/dL Albumin/Globulin Ratio (1.0-2.2) Amylase (28-100) U/L Lipase (22-51) U/L Blood Type O POSITIVE Antibody Screen NEGATIVE Crossmatch IS Only See Detail
[2020-06-17 19:11] LABS: BASOPHILS % (AUTO) 0.2 %; HGB - HEMOGLOBIN 9.9 g/dL (12.0-16.0); LYMPHOCYTES % (AUTO) 7.7 %; MEAN CORPUSCULAR HEMOGLOBIN 24.9 pg (27.0-31.0); MEAN CORPUSCULAR HGB CONC 30.5 g/dL (32.0-36.0); MEAN CORPUSCULAR VOLUME 81.7 fL (81.0-99.0); MEAN PLATELET VOLUME 10.5 fL (7.9-10.8); MONOCYTES % (AUTO) 5.2 %; NEUTROPHILS % (AUTO) 85.7 %; PLT - PLATELET COUNT 174 10^3/uL (130-450); RED BLOOD COUNT 3.98 10^6/uL (4.20-5.40); RED CELL DISTRIBUTION WIDTH 17.2 % (12.0-15.0)
[2020-06-17 19:16] LABS: CREATININE,URINE 154.6 mg/dL; PROTEIN/CREATININE RATIO,URINE 0.5 (<=0.2)
[2020-06-17 19:16] LABS: ABNORMAL LYMPHS % (MANUAL) 0 %
[2020-06-17 19:18] LABS: PT - PROTHROMBIN TIME 11.4 secs (9.9-12.6)
[2020-06-17 19:25] LABS: ALBUMIN/GLOBULIN RATIO 0.7 (1.0-2.2); BILIRUBIN,TOTAL 0.8 mg/dL (0.2-1.0); CALCIUM 8.2 mg/dL (8.5-10.3)
[2020-06-17 19:32] LABS: PARTIAL THROMBOPLASTIN TIME 28.4 secs (24.9-33.3)
[2020-06-17 19:37] LABS: MAGNESIUM 4.4 mg/dL (1.7-2.8); URIC ACID 5.9 mg/dL (2.6-7.2)
[2020-06-17 19:38] LABS: BAND NEUTROPHILS % (MANUAL) 1 %; LYMPHOCYTES # (MANUAL) 0.8 10^3/uL (1.5-3.5); LYMPHOCYTES % (MANUAL) 4 %; METAMYELOCYTES % (MANUAL) 1 %; MONOCYTES # (MANUAL) 0.4 10^3/uL (0.0-1.0)
[2020-06-17 19:39] LABS: DIFFERENTIAL COMMENT MANUAL DIFFERENTIAL; PLATELET ESTIMATE, MANUAL NORMAL (130-450,000) (NORMAL); PLATELET MORPHOLOGY NORMAL APPEARANCE (NORMAL)
[2020-06-17] MEDS ORDERED: DEXTROSE 5%-LACTATED RINGERS 1,000 ML IV SCH ×3 (20:18→21:20)
--- NOTE | 2020-06-17 20:44 | PROVIDER PROGRESS NOTE ---
Subjective - Prog Note Date Prog Note Date: 06/17/20 Prog Note Time: 20:41 - Subjective Subjective: Reviewed clinical scenario with [facility] Amanda Smith MD. Reviewed trend in labs AST and ALT mildly improved Creatinine 1.0 WBC increased to 21, plts 174 She recommends continuing with magnesium infusion Check labs again in 6 hours Give D5LR to improve glucose levels If labs worsen or hypoglycemia persists/worsens will consider transfer at that time. BPs wnl Meets criteria for pre-eclampsia with severe feaures Acute fatty liver of remains undetermined Will remain in house at present with possibility of transfer with worsening clinical scenario or worsening labs Objective - Vital Signs/Intake & Output Vital Signs: Vital Signs x48h Temp Pulse Resp BP Pulse Ox 06/17/20 20:04 98.2 F 92 18 129/85 H 98 06/17/20 19:26 98.4 F 97 18 127/87 H 100 06/17/20 18:20 97.9 F 115 H 17 147/89 H 100 06/17/20 15:51 75 16 149/83 H 100 Intake & Output: Intake & Output 06/14/20 06/15/20 06/16/20 06/17/20 23:59 23:59 23:59 23:59 Intake Total 3265 Output Total 2280 Balance 985 - Lab Results Fish Bones: 06/17/20 19:03 06/17/20 19:03 Other Labs: Lab Results x24hrs 06/17/20 06/17/20 06/17/20 Range/Units 19:38 19:03 19:03 WBC (4.8-10.8) x10^3/uL RBC (4.20-5.40) 10^6/uL Hgb (12.0-16.0) g/dL Hct (37.0-47.0) % MCV (81.0-99.0) fL MCH (27.0-31.0) pg MCHC (32.0-36.0) g/dL RDW (12.0-15.0) % Plt Count (130-450) 10^3/uL MPV (7.9-10.8) fL Neut # (Auto) (1.5-6.6) 10^3/uL Lymph # (Auto) (1.5-3.5) 10^3/uL Sandoval # (Auto) (0.0-1.0) 10^3/uL Eos # (Auto) (0.0-0.7) 10^3/uL Baso # (Auto) (0.0-0.1) 10^3/uL Absolute Nucleated RBC x10^3/uL Total Counted Band Neuts % (Manual) (0 - 10) % Abnorm Lymph % (Manual) % Metamyelocytes % ( - 0) % Nucleated RBC % /100WBC Neutrophils # (Manual) (1.5-6.6) 10^3/uL Lymphocytes # (Manual) (1.5-3.5) 10^3/uL Monocytes # (Manual) (0.0-1.0) 10^3/uL Eosinophils # (Manual) (0-0.7) 10^3/uL Basophils # (Manual) (0-0.1) 10^3/uL Differential Comment WBC Morphology (NORMAL) Platelet Estimate (NORMAL) Platelet Morphology (NORMAL) RBC Morph Micro Appear (NORMAL) PT (9.9-12.6) secs INR (0.8-1.2) APTT (24.9-33.3) secs Fibrinogen (220-496) mg/dL Sodium (135-145) mmol/L Potassium (3.5-5.0) mmol/L Chloride (101-111) mmol/L Carbon Dioxide (21-32) mmol/L Anion Gap (6-13) BUN (6-20) mg/dL Creatinine (0.4-1.0) mg/dL Estimated GFR (MDRD) (>89) Glucose (70-100) mg/dL POC Whole Bld Glucose 57 L* (70 - 100) mg/dL Uric Acid (2.6-7.2) mg/dL Calcium (8.5-10.3) mg/dL Magnesium (1.7-2.8) mg/dL Total Bilirubin (0.2-1.0) mg/dL AST (10-42) IU/L ALT (10-60) IU/L Alkaline Phosphatase (42-121) IU/L Ammonia 14.5 (7-35) umol/L Lactate Dehydrogenase 299 H (91-225) IU/L Total Protein (6.7-8.2) g/dL Albumin (3.2-5.5) g/dL Globulin (2.1-4.2) g/dL Albumin/Globulin Ratio (1.0-2.2) Amylase (28-100) U/L Lipase (22-51) U/L Urine Creatinine mg/dL Ur Total Protein Timed mg/dL Protein/Creatinin Ratio (<=0.2) Blood Type Antibody Screen Crossmatch IS Only 06/17/20 06/17/20 06/17/20 Range/Units 19:03 19:03 19:03 WBC 21.0 H (4.8-10.8) x10^3/uL RBC 3.98 L (4.20-5.40) 10^6/uL Hgb 9.9 L (12.0-16.0) g/dL Hct 32.5 L (37.0-47.0) % MCV 81.7 (81.0-99.0) fL MCH 24.9 L (27.0-31.0) pg MCHC 30.5 L (32.0-36.0) g/dL RDW 17.2 H (12.0-15.0) % Plt Count 174 (130-450) 10^3/uL MPV 10.5 (7.9-10.8) fL Neut # (Auto) Not Reportable (1.5-6.6) 10^3/uL Lymph # (Auto) Not Reportable (1.5-3.5) 10^3/uL Sandoval # (Auto) Not Reportable (0.0-1.0) 10^3/uL Eos # (Auto) Not Reportable (0.0-0.7) 10^3/uL Baso # (Auto) Not Reportable (0.0-0.1) 10^3/uL Absolute Nucleated RBC Not Reportable x10^3/uL Total Counted 100 Band Neuts % (Manual) 1 (0 - 10) % Abnorm Lymph % (Manual) 0 % Metamyelocytes % 1 H ( - 0) % Nucleated RBC % Not Reportable /100WBC Neutrophils # (Manual) 19.5 H (1.5-6.6) 10^3/uL Lymphocytes # (Manual) 0.8 L (1.5-3.5) 10^3/uL Monocytes # (Manual) 0.4 (0.0-1.0) 10^3/uL Eosinophils # (Manual) 0.0 (0-0.7) 10^3/uL Basophils # (Manual) 0.0 (0-0.1) 10^3/uL Differential Comment MANUAL DIFFERENTIAL WBC Morphology NORMAL APPEARANCE (NORMAL) Platelet Estimate NORMAL (130-450,000) (NORMAL) Platelet Morphology NORMAL APPEARANCE (NORMAL) RBC Morph Micro Appear 1+ POLYCHROMASIA (NORMAL) PT 11.4 (9.9-12.6) secs INR 1.0 (0.8-1.2) APTT 28.4 (24.9-33.3) secs Fibrinogen 250 (220-496) mg/dL Sodium (135-145) mmol/L Potassium (3.5-5.0) mmol/L Chloride (101-111) mmol/L Carbon Dioxide (21-32) mmol/L Anion Gap (6-13) BUN (6-20) mg/dL Creatinine (0.4-1.0) mg/dL Estimated GFR (MDRD) (>89) Glucose (70-100) mg/dL POC Whole Bld Glucose (70 - 100) mg/dL Uric Acid 5.9 (2.6-7.2) mg/dL Calcium (8.5-10.3) mg/dL Magnesium 4.4 H (1.7-2.8) mg/dL Total Bilirubin (0.2-1.0) mg/dL AST (10-42) IU/L ALT (10-60) IU/L Alkaline Phosphatase (42-121) IU/L Ammonia (7-35) umol/L Lactate Dehydrogenase (91-225) IU/L Total Protein (6.7-8.2) g/dL Albumin (3.2-5.5) g/dL Globulin (2.1-4.2) g/dL Albumin/Globulin Ratio (1.0-2.2) Amylase (28-100) U/L Lipase (22-51) U/L Urine Creatinine mg/dL Ur Total Protein Timed mg/dL Protein/Creatinin Ratio (<=0.2) Blood Type Antibody Screen Crossmatch IS Only 06/17/20 06/17/20 06/17/20 Range/Units 19:03 18:42 18:15 WBC (4.8-10.8) x10^3/uL RBC (4.20-5.40) 10^6/uL Hgb (12.0-16.0) g/dL Hct (37.0-47.0) % MCV (81.0-99.0) fL MCH (27.0-31.0) pg MCHC (32.0-36.0) g/dL RDW (12.0-15.0) % Plt Count (130-450) 10^3/uL MPV (7.9-10.8) fL Neut # (Auto) (1.5-6.6) 10^3/uL Lymph # (Auto) (1.5-3.5) 10^3/uL Sandoval # (Auto) (0.0-1.0) 10^3/uL Eos # (Auto) (0.0-0.7) 10^3/uL Baso # (Auto) (0.0-0.1) 10^3/uL Absolute Nucleated RBC x10^3/uL Total Counted Band Neuts % (Manual) (0 - 10) % Abnorm Lymph % (Manual) % Metamyelocytes % ( - 0) % Nucleated RBC % /100WBC Neutrophils # (Manual) (1.5-6.6) 10^3/uL Lymphocytes # (Manual) (1.5-3.5) 10^3/uL Monocytes # (Manual) (0.0-1.0) 10^3/uL Eosinophils # (Manual) (0-0.7) 10^3/uL Basophils # (Manual) (0-0.1) 10^3/uL Differential Comment WBC Morphology (NORMAL) Platelet Estimate (NORMAL) Platelet Morphology (NORMAL) RBC Morph Micro Appear (NORMAL) PT (9.9-12.6) secs INR (0.8-1.2) APTT (24.9-33.3) secs Fibrinogen (220-496) mg/dL Sodium 138 (135-145) mmol/L Potassium 4.0 (3.5-5.0) mmol/L Chloride 105 (101-111) mmol/L Carbon Dioxide 19 L (21-32) mmol/L Anion Gap 14.0 H (6-13) BUN 15 (6-20) mg/dL Creatinine 1.0 (0.4-1.0) mg/dL Estimated GFR (MDRD) 63 L (>89) Glucose 74 (70-100) mg/dL POC Whole Bld Glucose 53 L* (70 - 100) mg/dL Uric Acid (2.6-7.2) mg/dL Calcium 8.2 L (8.5-10.3) mg/dL Magnesium (1.7-2.8) mg/dL Total Bilirubin 0.8 (0.2-1.0) mg/dL AST 147 H (10-42) IU/L ALT 157 H (10-60) IU/L Alkaline Phosphatase 207 H (42-121) IU/L Ammonia (7-35) umol/L Lactate Dehydrogenase (91-225) IU/L Total Protein 5.0 L (6.7-8.2) g/dL Albumin 2.0 L (3.2-5.5) g/dL Globulin 3.0 (2.1-4.2) g/dL Albumin/Globulin Ratio 0.7 L (1.0-2.2) Amylase (28-100) U/L Lipase (22-51) U/L Urine Creatinine 154.6 mg/dL Ur Total Protein Timed 70 mg/dL Protein/Creatinin Ratio 0.5 H (<=0.2) Blood Type Antibody Screen Crossmatch IS Only 06/17/20 06/17/20 06/17/20 Range/Units 17:54 17:47 16:07 WBC (4.8-10.8) x10^3/uL RBC (4.20-5.40) 10^6/uL Hgb (12.0-16.0) g/dL Hct (37.0-47.0) % MCV (81.0-99.0) fL MCH (27.0-31.0) pg MCHC (32.0-36.0) g/dL RDW (12.0-15.0) % Plt Count (130-450) 10^3/uL MPV (7.9-10.8) fL Neut # (Auto) (1.5-6.6) 10^3/uL Lymph # (Auto) (1.5-3.5) 10^3/uL Sandoval # (Auto) (0.0-1.0) 10^3/uL Eos # (Auto) (0.0-0.7) 10^3/uL Baso # (Auto) (0.0-0.1) 10^3/uL Absolute Nucleated RBC x10^3/uL Total Counted Band Neuts % (Manual) (0 - 10) % Abnorm Lymph % (Manual) % Metamyelocytes % ( - 0) % Nucleated RBC % /100WBC Neutrophils # (Manual) (1.5-6.6) 10^3/uL Lymphocytes # (Manual) (1.5-3.5) 10^3/uL Monocytes # (Manual) (0.0-1.0) 10^3/uL Eosinophils # (Manual) (0-0.7) 10^3/uL Basophils # (Manual) (0-0.1) 10^3/uL Differential Comment WBC Morphology (NORMAL) Platelet Estimate (NORMAL) Platelet Morphology (NORMAL) RBC Morph Micro Appear (NORMAL) PT (9.9-12.6) secs INR (0.8-1.2) APTT (24.9-33.3) secs Fibrinogen (220-496) mg/dL Sodium (135-145) mmol/L Potassium (3.5-5.0) mmol/L Chloride (101-111) mmol/L Carbon Dioxide (21-32) mmol/L Anion Gap (6-13) BUN (6-20) mg/dL Creatinine (0.4-1.0) mg/dL Estimated GFR (MDRD) (>89) Glucose (70-100) mg/dL POC Whole Bld Glucose 53 L* 58 L* (70 - 100) mg/dL Uric Acid (2.6-7.2) mg/dL Calcium (8.5-10.3) mg/dL Magnesium (1.7-2.8) mg/dL Total Bilirubin (0.2-1.0) mg/dL AST (10-42) IU/L ALT (10-60) IU/L Alkaline Phosphatase (42-121) IU/L Ammonia 19.9 (7-35) umol/L Lactate Dehydrogenase (91-225) IU/L Total Protein (6.7-8.2) g/dL Albumin (3.2-5.5) g/dL Globulin (2.1-4.2) g/dL Albumin/Globulin Ratio (1.0-2.2) Amylase (28-100) U/L Lipase (22-51) U/L Urine Creatinine mg/dL Ur Total Protein Timed mg/dL Protein/Creatinin Ratio (<=0.2) Blood Type Antibody Screen Crossmatch IS Only 06/17/20 06/17/20 06/17/20 Range/Units 16:07 16:07 16:07 WBC (4.8-10.8) x10^3/uL RBC (4.20-5.40) 10^6/uL Hgb (12.0-16.0) g/dL Hct (37.0-47.0) % MCV (81.0-99.0) fL MCH (27.0-31.0) pg MCHC (32.0-36.0) g/dL RDW (12.0-15.0) % Plt Count (130-450) 10^3/uL MPV (7.9-10.8) fL Neut # (Auto) (1.5-6.6) 10^3/uL Lymph # (Auto) (1.5-3.5) 10^3/uL Sandoval # (Auto) (0.0-1.0) 10^3/uL Eos # (Auto) (0.0-0.7) 10^3/uL Baso # (Auto) (0.0-0.1) 10^3/uL Absolute Nucleated RBC x10^3/uL Total Counted Band Neuts % (Manual) (0 - 10) % Abnorm Lymph % (Manual) % Metamyelocytes % ( - 0) % Nucleated RBC % /100WBC Neutrophils # (Manual) (1.5-6.6) 10^3/uL Lymphocytes # (Manual) (1.5-3.5) 10^3/uL Monocytes # (Manual) (0.0-1.0) 10^3/uL Eosinophils # (Manual) (0-0.7) 10^3/uL Basophils # (Manual) (0-0.1) 10^3/uL Differential Comment WBC Morphology (NORMAL) Platelet Estimate (NORMAL) Platelet Morphology (NORMAL) RBC Morph Micro Appear (NORMAL) PT 11.8 (9.9-12.6) secs INR 1.1 (0.8-1.2) APTT (24.9-33.3) secs Fibrinogen 259 (220-496) mg/dL Sodium 137 (135-145) mmol/L Potassium 4.0 (3.5-5.0) mmol/L Chloride 107 (101-111) mmol/L Carbon Dioxide 19 L (21-32) mmol/L Anion Gap 11.0 (6-13) BUN 15 (6-20) mg/dL Creatinine 1.1 H (0.4-1.0) mg/dL Estimated GFR (MDRD) 57 L (>89) Glucose 70 (70-100) mg/dL POC Whole Bld Glucose (70 - 100) mg/dL Uric Acid 5.8 (2.6-7.2) mg/dL Calcium 8.6 (8.5-10.3) mg/dL Magnesium (1.7-2.8) mg/dL Total Bilirubin 0.8 (0.2-1.0) mg/dL AST 173 H (10-42) IU/L ALT 180 H (10-60) IU/L Alkaline Phosphatase 227 H (42-121) IU/L Ammonia (7-35) umol/L Lactate Dehydrogenase (91-225) IU/L Total Protein 5.7 L (6.7-8.2) g/dL Albumin 2.1 L (3.2-5.5) g/dL Globulin 3.6 (2.1-4.2) g/dL Albumin/Globulin Ratio 0.6 L (1.0-2.2) Amylase (28-100) U/L Lipase (22-51) U/L Urine Creatinine mg/dL Ur Total Protein Timed mg/dL Protein/Creatinin Ratio (<=0.2) Blood Type Antibody Screen Crossmatch IS Only 06/17/20 06/17/20 06/17/20 Range/Units 16:03 14:35 14:35 WBC 19.4 H (4.8-10.8) x10^3/uL RBC 3.96 L (4.20-5.40) 10^6/uL Hgb 9.7 L (12.0-16.0) g/dL Hct 32.3 L (37.0-47.0) % MCV 81.6 (81.0-99.0) fL MCH 24.5 L (27.0-31.0) pg MCHC 30.0 L (32.0-36.0) g/dL RDW 17.2 H (12.0-15.0) % Plt Count 183 (130-450) 10^3/uL MPV 11.0 H (7.9-10.8) fL Neut # (Auto) 16.4 H (1.5-6.6) 10^3/uL Lymph # (Auto) 1.6 (1.5-3.5) 10^3/uL Sandoval # (Auto) 1.2 H (0.0-1.0) 10^3/uL Eos # (Auto) 0.0 (0.0-0.7) 10^3/uL Baso # (Auto) 0.0 (0.0-0.1) 10^3/uL Absolute Nucleated RBC 0.19 x10^3/uL Total Counted Band Neuts % (Manual) (0 - 10) % Abnorm Lymph % (Manual) % Metamyelocytes % ( - 0) % Nucleated RBC % 1.0 /100WBC Neutrophils # (Manual) (1.5-6.6) 10^3/uL Lymphocytes # (Manual) (1.5-3.5) 10^3/uL Monocytes # (Manual) (0.0-1.0) 10^3/uL Eosinophils # (Manual) (0-0.7) 10^3/uL Basophils # (Manual) (0-0.1) 10^3/uL Differential Comment WBC Morphology (NORMAL) Platelet Estimate (NORMAL) Platelet Morphology (NORMAL) RBC Morph Micro Appear (NORMAL) PT (9.9-12.6) secs INR (0.8-1.2) APTT (24.9-33.3) secs Fibrinogen (220-496) mg/dL Sodium 139 (135-145) mmol/L Potassium 4.1 (3.5-5.0) mmol/L Chloride 110 (101-111) mmol/L Carbon Dioxide 20 L (21-32) mmol/L Anion Gap 9.0 (6-13) BUN 15 (6-20) mg/dL Creatinine 1.1 H (0.4-1.0) mg/dL Estimated GFR (MDRD) 57 L (>89) Glucose 73 (70-100) mg/dL POC Whole Bld Glucose (70 - 100) mg/dL Uric Acid (2.6-7.2) mg/dL Calcium 9.0 (8.5-10.3) mg/dL Magnesium (1.7-2.8) mg/dL Total Bilirubin 0.7 (0.2-1.0) mg/dL AST 171 H (10-42) IU/L ALT 174 H (10-60) IU/L Alkaline Phosphatase 211 H (42-121) IU/L Ammonia (7-35) umol/L Lactate Dehydrogenase (91-225) IU/L Total Protein 5.5 L (6.7-8.2) g/dL Albumin 2.2 L (3.2-5.5) g/dL Globulin 3.3 (2.1-4.2) g/dL Albumin/Globulin Ratio 0.7 L (1.0-2.2) Amylase 59 (28-100) U/L Lipase 34 (22-51) U/L Urine Creatinine mg/dL Ur Total Protein Timed mg/dL Protein/Creatinin Ratio (<=0.2) Blood Type Antibody Screen Crossmatch IS Only 06/17/20 06/17/20 Range/Units 06:10 06:10 WBC 11.0 H (4.8-10.8) x10^3/uL RBC 4.37 (4.20-5.40) 10^6/uL Hgb 10.7 L (12.0-16.0) g/dL Hct 35.2 L (37.0-47.0) % MCV 80.5 L (81.0-99.0) fL MCH 24.5 L (27.0-31.0) pg MCHC 30.4 L (32.0-36.0) g/dL RDW 17.1 H (12.0-15.0) % Plt Count 205 (130-450) 10^3/uL MPV 11.1 H (7.9-10.8) fL Neut # (Auto) 7.2 H (1.5-6.6) 10^3/uL Lymph # (Auto) 2.6 (1.5-3.5) 10^3/uL Sandoval # (Auto) 0.8 (0.0-1.0) 10^3/uL Eos # (Auto) 0.1 (0.0-0.7) 10^3/uL Baso # (Auto) 0.0 (0.0-0.1) 10^3/uL Absolute Nucleated RBC 0.31 x10^3/uL Total Counted Band Neuts % (Manual) (0 - 10) % Abnorm Lymph % (Manual) % Metamyelocytes % ( - 0) % Nucleated RBC % 2.8 /100WBC Neutrophils # (Manual) (1.5-6.6) 10^3/uL Lymphocytes # (Manual) (1.5-3.5) 10^3/uL Monocytes # (Manual) (0.0-1.0) 10^3/uL Eosinophils # (Manual) (0-0.7) 10^3/uL Basophils # (Manual) (0-0.1) 10^3/uL Differential Comment WBC Morphology (NORMAL) Platelet Estimate (NORMAL) Platelet Morphology (NORMAL) RBC Morph Micro Appear (NORMAL) PT (9.9-12.6) secs INR (0.8-1.2) APTT (24.9-33.3) secs Fibrinogen (220-496) mg/dL Sodium (135-145) mmol/L Potassium (3.5-5.0) mmol/L Chloride (101-111) mmol/L Carbon Dioxide (21-32) mmol/L Anion Gap (6-13) BUN (6-20) mg/dL Creatinine (0.4-1.0) mg/dL Estimated GFR (MDRD) (>89) Glucose (70-100) mg/dL POC Whole Bld Glucose (70 - 100) mg/dL Uric Acid (2.6-7.2) mg/dL Calcium (8.5-10.3) mg/dL Magnesium (1.7-2.8) mg/dL Total Bilirubin (0.2-1.0) mg/dL AST (10-42) IU/L ALT (10-60) IU/L Alkaline Phosphatase (42-121) IU/L Ammonia (7-35) umol/L Lactate Dehydrogenase (91-225) IU/L Total Protein (6.7-8.2) g/dL Albumin (3.2-5.5) g/dL Globulin (2.1-4.2) g/dL Albumin/Globulin Ratio (1.0-2.2) Amylase (28-100) U/L Lipase (22-51) U/L Urine Creatinine mg/dL Ur Total Protein Timed mg/dL Protein/Creatinin Ratio (<=0.2) Blood Type O POSITIVE Antibody Screen NEGATIVE Crossmatch IS Only See Detail
[2020-06-18 01:07] LABS: BASOPHILS # (AUTO) 0.1 10^3/uL (0.0-0.1); BASOPHILS % (AUTO) 0.3 %; EOSINOPHILS % (AUTO) 0.1 %; LYMPHOCYTES # (AUTO) 1.7 10^3/uL (1.5-3.5); LYMPHOCYTES % (AUTO) 9.5 %; MEAN CORPUSCULAR HEMOGLOBIN 24.7 pg (27.0-31.0); MEAN CORPUSCULAR HGB CONC 28.7 g/dL (32.0-36.0); MEAN CORPUSCULAR VOLUME 86.1 fL (81.0-99.0); MEAN PLATELET VOLUME 10.8 fL (7.9-10.8); MONOCYTES % (AUTO) 5.7 %; NEUTROPHILS % (AUTO) 83.5 %; PLT - PLATELET COUNT 151 10^3/uL (130-450); RED BLOOD COUNT 3.24 10^6/uL (4.20-5.40); RED CELL DISTRIBUTION WIDTH 17.6 % (12.0-15.0); WHITE BLOOD COUNT 17.9 x10^3/uL (4.8-10.8)
[2020-06-18 01:08] LABS: PT - PROTHROMBIN TIME 11.3 secs (9.9-12.6)
[2020-06-18 01:32] LABS: ALBUMIN 1.5 g/dL (3.2-5.5); ALBUMIN/GLOBULIN RATIO 0.6 (1.0-2.2); BILIRUBIN,TOTAL 0.5 mg/dL (0.2-1.0); CALCIUM 7.1 mg/dL (8.5-10.3); MAGNESIUM 4.9 mg/dL (1.7-2.8); TOTAL PROTEIN 4.1 g/dL (6.7-8.2); URIC ACID 4.7 mg/dL (2.6-7.2)
[2020-06-18] MEDS: MAGNESIUM SULFATE IN WATER 20 GM/500 ML IV.SOLN IV SCH ×2 (02:58→13:09)
[2020-06-18 07:11] LABS: BASOPHILS # (AUTO) 0.1 10^3/uL (0.0-0.1); BASOPHILS % (AUTO) 0.3 %; EOSINOPHILS # (AUTO) 0.1 10^3/uL (0.0-0.7); EOSINOPHILS % (AUTO) 0.4 %; HGB - HEMOGLOBIN 9.4 g/dL (12.0-16.0); LYMPHOCYTES % (AUTO) 10.1 %; MEAN CORPUSCULAR HEMOGLOBIN 24.9 pg (27.0-31.0); MEAN CORPUSCULAR HGB CONC 31.6 g/dL (32.0-36.0); MEAN CORPUSCULAR VOLUME 78.6 fL (81.0-99.0); MEAN PLATELET VOLUME 10.9 fL (7.9-10.8); MONOCYTES % (AUTO) 5.2 %; NEUTROPHILS # (AUTO) 16.2 10^3/uL (1.5-6.6); NEUTROPHILS % (AUTO) 82.7 %; PLT - PLATELET COUNT 175 10^3/uL (130-450); RED BLOOD COUNT 3.78 10^6/uL (4.20-5.40); RED CELL DISTRIBUTION WIDTH 17.3 % (12.0-15.0); WHITE BLOOD COUNT 19.5 x10^3/uL (4.8-10.8)
[2020-06-18 07:13] LABS: ALBUMIN/GLOBULIN RATIO 0.6 (1.0-2.2); BILIRUBIN,TOTAL 0.6 mg/dL (0.2-1.0); TOTAL PROTEIN 5.3 g/dL (6.7-8.2)
[2020-06-18] MEDS ORDERED: SERTRALINE 50 MG TABLET PO SCH (09:00)
[2020-06-18] MEDS: DOCUSATE SODIUM 100 MG CAPSULE PO SCH ×2 (09:15→13:11)
[2020-06-18] MEDS ORDERED: LACTATED RINGERS 1,000 ML IV SCH (10:30)
[2020-06-18] MEDS: oxyCODONE 5 MG TABLET PO PRN ×4 (11:56→20:48)
[2020-06-18] MEDS: SODIUM CHLORIDE FLUSH 0.9% 10 ML SYRINGE IVP SCH ×2 (13:11→13:12)
[2020-06-18 13:19] LABS: BASOPHILS % (AUTO) 0.2 %; EOSINOPHILS # (AUTO) 0.1 10^3/uL (0.0-0.7); EOSINOPHILS % (AUTO) 0.4 %; HGB - HEMOGLOBIN 8.9 g/dL (12.0-16.0); LYMPHOCYTES # (AUTO) 1.7 10^3/uL (1.5-3.5); LYMPHOCYTES % (AUTO) 9.5 %; MEAN CORPUSCULAR HEMOGLOBIN 25.1 pg (27.0-31.0); MEAN CORPUSCULAR HGB CONC 31.8 g/dL (32.0-36.0); MEAN CORPUSCULAR VOLUME 79.1 fL (81.0-99.0); MEAN PLATELET VOLUME 9.9 fL (7.9-10.8); MONOCYTES # (AUTO) 1.1 10^3/uL (0.0-1.0); MONOCYTES % (AUTO) 6.1 %; NEUTROPHILS # (AUTO) 14.2 10^3/uL (1.5-6.6); NEUTROPHILS % (AUTO) 82.2 %; PLT - PLATELET COUNT 187 10^3/uL (130-450); RED BLOOD COUNT 3.54 10^6/uL (4.20-5.40); RED CELL DISTRIBUTION WIDTH 17.2 % (12.0-15.0); WHITE BLOOD COUNT 17.3 x10^3/uL (4.8-10.8)
--- NOTE | 2020-06-18 13:33 | PROVIDER PROGRESS NOTE ---
Subjective - Prog Note Date Prog Note Date: 06/18/20 Prog Note Time: 09:00 - Subjective Subjective: Labs improved overnight. BP have been in normal range (most recent in mild range.). Pain well managed on no pain meds. Patient is limiting movement due to desire to avoid pain medications. Burrell catheter remains in place. Bleeding wnl. BF going well. Objective - Vital Signs/Intake & Output Reviewed Vital Signs: Yes Vital Signs: Vital Signs x48h Temp Pulse Pulse Resp BP Pulse Ox 06/18/20 12:37 98.6 F 06/18/20 11:42 98.1 F 104 H 16 131/94 H 99 06/18/20 10:00 98.6 F 100 15 126/76 100 06/18/20 08:10 99.3 F 98 18 125/87 H 100 06/18/20 06:00 108 H 16 116/89 H 96 Intake & Output: Intake & Output 06/15/20 06/16/20 06/17/20 06/18/20 23:59 23:59 23:59 23:59 Intake Total 3815 4291 Output Total 2310 6075 Balance 1505 -1784 - Objective General Appearance: positive: No acute distress Respiratory: positive: No respiratory distress, Breath sounds nml Cardiovascular: positive: Regular rate & rhythm Abdomen: positive: Other (soft, appropriately tender. No RUQ TTP) Skin: positive: Color nml Neurologic/Psychiatric: positive: Oriented x3 - Lab Results Fish Bones: 06/18/20 13:13 06/18/20 06:58 Other Labs: Lab Results x24hrs 06/18/20 06/18/20 06/18/20 Range/Units 13:13 10:01 08:37 WBC 17.3 H (4.8-10.8) x10^3/uL RBC 3.54 L (4.20-5.40) 10^6/uL Hgb 8.9 L (12.0-16.0) g/dL Hct 28.0 L (37.0-47.0) % MCV 79.1 L (81.0-99.0) fL MCH 25.1 L (27.0-31.0) pg MCHC 31.8 L (32.0-36.0) g/dL RDW 17.2 H (12.0-15.0) % Plt Count 187 (130-450) 10^3/uL MPV 9.9 (7.9-10.8) fL Neut # (Auto) 14.2 H (1.5-6.6) 10^3/uL Lymph # (Auto) 1.7 (1.5-3.5) 10^3/uL [place] # (Auto) 1.1 H (0.0-1.0) 10^3/uL Eos # (Auto) 0.1 (0.0-0.7) 10^3/uL Baso # (Auto) 0.0 (0.0-0.1) 10^3/uL Absolute Nucleated RBC 0.08 x10^3/uL Total Counted Band Neuts % (Manual) (0 - 10) % Abnorm Lymph % (Manual) % Metamyelocytes % ( - 0) % Nucleated RBC % 0.5 /100WBC Neutrophils # (Manual) (1.5-6.6) 10^3/uL Lymphocytes # (Manual) (1.5-3.5) 10^3/uL Monocytes # (Manual) (0.0-1.0) 10^3/uL Eosinophils # (Manual) (0-0.7) 10^3/uL Basophils # (Manual) (0-0.1) 10^3/uL Differential Comment WBC Morphology (NORMAL) Platelet Estimate (NORMAL) Platelet Morphology (NORMAL) RBC Morph Micro Appear (NORMAL) PT (9.9-12.6) secs INR (0.8-1.2) APTT (24.9-33.3) secs Fibrinogen (220-496) mg/dL Sodium (135-145) mmol/L Potassium (3.5-5.0) mmol/L Chloride (101-111) mmol/L Carbon Dioxide (21-32) mmol/L Anion Gap (6-13) BUN (6-20) mg/dL Creatinine (0.4-1.0) mg/dL Estimated GFR (MDRD) (>89) Glucose (70-100) mg/dL POC Whole Bld Glucose 128 H 105 H (70 - 100) mg/dL Uric Acid (2.6-7.2) mg/dL Calcium (8.5-10.3) mg/dL Magnesium (1.7-2.8) mg/dL Total Bilirubin (0.2-1.0) mg/dL AST (10-42) IU/L ALT (10-60) IU/L Alkaline Phosphatase (42-121) IU/L Ammonia (7-35) umol/L Lactate Dehydrogenase (91-225) IU/L Total Protein (6.7-8.2) g/dL Albumin (3.2-5.5) g/dL Globulin (2.1-4.2) g/dL Albumin/Globulin Ratio (1.0-2.2) Amylase (28-100) U/L Lipase (22-51) U/L Urine Creatinine mg/dL Ur Total Protein Timed mg/dL Protein/Creatinin Ratio (<=0.2) 06/18/20 06/18/20 06/18/20 Range/Units 06:58 06:58 06:58 WBC 19.5 H (4.8-10.8) x10^3/uL RBC 3.78 L (4.20-5.40) 10^6/uL Hgb 9.4 L (12.0-16.0) g/dL Hct 29.7 L (37.0-47.0) % MCV 78.6 L (81.0-99.0) fL MCH 24.9 L (27.0-31.0) pg MCHC 31.6 L (32.0-36.0) g/dL RDW 17.3 H (12.0-15.0) % Plt Count 175 (130-450) 10^3/uL MPV 10.9 H (7.9-10.8) fL Neut # (Auto) 16.2 H (1.5-6.6) 10^3/uL Lymph # (Auto) 2.0 (1.5-3.5) 10^3/uL [place] # (Auto) 1.0 (0.0-1.0) 10^3/uL Eos # (Auto) 0.1 (0.0-0.7) 10^3/uL Baso # (Auto) 0.1 (0.0-0.1) 10^3/uL Absolute Nucleated RBC 0.13 x10^3/uL Total Counted Band Neuts % (Manual) (0 - 10) % Abnorm Lymph % (Manual) % Metamyelocytes % ( - 0) % Nucleated RBC % 0.7 /100WBC Neutrophils # (Manual) (1.5-6.6) 10^3/uL Lymphocytes # (Manual) (1.5-3.5) 10^3/uL Monocytes # (Manual) (0.0-1.0) 10^3/uL Eosinophils # (Manual) (0-0.7) 10^3/uL Basophils # (Manual) (0-0.1) 10^3/uL Differential Comment WBC Morphology (NORMAL) Platelet Estimate (NORMAL) Platelet Morphology (NORMAL) RBC Morph Micro Appear (NORMAL) PT (9.9-12.6) secs INR (0.8-1.2) APTT (24.9-33.3) secs Fibrinogen 359 (220-496) mg/dL Sodium 134 L (135-145) mmol/L Potassium 4.0 (3.5-5.0) mmol/L Chloride 104 (101-111) mmol/L Carbon Dioxide 21 (21-32) mmol/L Anion Gap 9.0 (6-13) BUN 12 (6-20) mg/dL Creatinine 1.0 (0.4-1.0) mg/dL Estimated GFR (MDRD) 63 L (>89) Glucose 86 (70-100) mg/dL POC Whole Bld Glucose (70 - 100) mg/dL Uric Acid (2.6-7.2) mg/dL Calcium 7.0 L (8.5-10.3) mg/dL Magnesium (1.7-2.8) mg/dL Total Bilirubin 0.6 (0.2-1.0) mg/dL AST 90 H (10-42) IU/L ALT 117 H (10-60) IU/L Alkaline Phosphatase 189 H (42-121) IU/L Ammonia (7-35) umol/L Lactate Dehydrogenase (91-225) IU/L Total Protein 5.3 L (6.7-8.2) g/dL Albumin 2.0 L (3.2-5.5) g/dL Globulin 3.3 (2.1-4.2) g/dL Albumin/Globulin Ratio 0.6 L (1.0-2.2) Amylase (28-100) U/L Lipase (22-51) U/L Urine Creatinine mg/dL Ur Total Protein Timed mg/dL Protein/Creatinin Ratio (<=0.2) 06/18/20 06/18/20 06/18/20 Range/Units 06:10 04:23 01:43 WBC (4.8-10.8) x10^3/uL RBC (4.20-5.40) 10^6/uL Hgb (12.0-16.0) g/dL Hct (37.0-47.0) % MCV (81.0-99.0) fL MCH (27.0-31.0) pg MCHC (32.0-36.0) g/dL RDW (12.0-15.0) % Plt Count (130-450) 10^3/uL MPV (7.9-10.8) fL Neut # (Auto) (1.5-6.6) 10^3/uL Lymph # (Auto) (1.5-3.5) 10^3/uL [place] # (Auto) (0.0-1.0) 10^3/uL Eos # (Auto) (0.0-0.7) 10^3/uL Baso # (Auto) (0.0-0.1) 10^3/uL Absolute Nucleated RBC x10^3/uL Total Counted Band Neuts % (Manual) (0 - 10) % Abnorm Lymph % (Manual) % Metamyelocytes % ( - 0) % Nucleated RBC % /100WBC Neutrophils # (Manual) (1.5-6.6) 10^3/uL Lymphocytes # (Manual) (1.5-3.5) 10^3/uL Monocytes # (Manual) (0.0-1.0) 10^3/uL Eosinophils # (Manual) (0-0.7) 10^3/uL Basophils # (Manual) (0-0.1) 10^3/uL Differential Comment WBC Morphology (NORMAL) Platelet Estimate (NORMAL) Platelet Morphology (NORMAL) RBC Morph Micro Appear (NORMAL) PT (9.9-12.6) secs INR (0.8-1.2) APTT (24.9-33.3) secs Fibrinogen (220-496) mg/dL Sodium (135-145) mmol/L Potassium (3.5-5.0) mmol/L Chloride (101-111) mmol/L Carbon Dioxide (21-32) mmol/L Anion Gap (6-13) BUN (6-20) mg/dL Creatinine (0.4-1.0) mg/dL Estimated GFR (MDRD) (>89) Glucose (70-100) mg/dL POC Whole Bld Glucose 70 73 74 (70 - 100) mg/dL Uric Acid (2.6-7.2) mg/dL Calcium (8.5-10.3) mg/dL Magnesium (1.7-2.8) mg/dL Total Bilirubin (0.2-1.0) mg/dL AST (10-42) IU/L ALT (10-60) IU/L Alkaline Phosphatase (42-121) IU/L Ammonia (7-35) umol/L Lactate Dehydrogenase (91-225) IU/L Total Protein (6.7-8.2) g/dL Albumin (3.2-5.5) g/dL Globulin (2.1-4.2) g/dL Albumin/Globulin Ratio (1.0-2.2) Amylase (28-100) U/L Lipase (22-51) U/L Urine Creatinine mg/dL Ur Total Protein Timed mg/dL Protein/Creatinin Ratio (<=0.2) 06/18/20 06/18/20 06/18/20 Range/Units 00:58 00:58 00:58 WBC (4.8-10.8) x10^3/uL RBC (4.20-5.40) 10^6/uL Hgb (12.0-16.0) g/dL Hct (37.0-47.0) % MCV (81.0-99.0) fL MCH (27.0-31.0) pg MCHC (32.0-36.0) g/dL RDW (12.0-15.0) % Plt Count (130-450) 10^3/uL MPV (7.9-10.8) fL Neut # (Auto) (1.5-6.6) 10^3/uL Lymph # (Auto) (1.5-3.5) 10^3/uL [place] # (Auto) (0.0-1.0) 10^3/uL Eos # (Auto) (0.0-0.7) 10^3/uL Baso # (Auto) (0.0-0.1) 10^3/uL Absolute Nucleated RBC x10^3/uL Total Counted Band Neuts % (Manual) (0 - 10) % Abnorm Lymph % (Manual) % Metamyelocytes % ( - 0) % Nucleated RBC % /100WBC Neutrophils # (Manual) (1.5-6.6) 10^3/uL Lymphocytes # (Manual) (1.5-3.5) 10^3/uL Monocytes # (Manual) (0.0-1.0) 10^3/uL Eosinophils # (Manual) (0-0.7) 10^3/uL Basophils # (Manual) (0-0.1) 10^3/uL Differential Comment WBC Morphology (NORMAL) Platelet Estimate (NORMAL) Platelet Morphology (NORMAL) RBC Morph Micro Appear (NORMAL) PT 11.3 (9.9-12.6) secs INR 1.0 (0.8-1.2) APTT (24.9-33.3) secs Fibrinogen 259 (220-496) mg/dL Sodium 132 L (135-145) mmol/L Potassium 4.1 (3.5-5.0) mmol/L Chloride 104 (101-111) mmol/L Carbon Dioxide 18 L (21-32) mmol/L Anion Gap 10.0 (6-13) BUN 11 (6-20) mg/dL Creatinine 1.0 (0.4-1.0) mg/dL Estimated GFR (MDRD) 63 L (>89) Glucose 822 H* (70-100) mg/dL POC Whole Bld Glucose (70 - 100) mg/dL Uric Acid 4.7 (2.6-7.2) mg/dL Calcium 7.1 L (8.5-10.3) mg/dL Magnesium 4.9 H (1.7-2.8) mg/dL Total Bilirubin 0.5 (0.2-1.0) mg/dL AST 88 H (10-42) IU/L ALT 104 H (10-60) IU/L Alkaline Phosphatase 149 H (42-121) IU/L Ammonia < 10.0 (7-35) umol/L Lactate Dehydrogenase (91-225) IU/L Total Protein 4.1 L (6.7-8.2) g/dL Albumin 1.5 L (3.2-5.5) g/dL Globulin 2.6 (2.1-4.2) g/dL Albumin/Globulin Ratio 0.6 L (1.0-2.2) Amylase (28-100) U/L Lipase (22-51) U/L Urine Creatinine mg/dL Ur Total Protein Timed mg/dL Protein/Creatinin Ratio (<=0.2) 06/18/20 06/17/20 06/17/20 Range/Units 00:58 21:58 19:38 WBC 17.9 H (4.8-10.8) x10^3/uL RBC 3.24 L (4.20-5.40) 10^6/uL Hgb 8.0 L (12.0-16.0) g/dL Hct 27.9 L (37.0-47.0) % MCV 86.1 (81.0-99.0) fL MCH 24.7 L (27.0-31.0) pg MCHC 28.7 L (32.0-36.0) g/dL RDW 17.6 H (12.0-15.0) % Plt Count 151 (130-450) 10^3/uL MPV 10.8 (7.9-10.8) fL Neut # (Auto) 15.0 H (1.5-6.6) 10^3/uL Lymph # (Auto) 1.7 (1.5-3.5) 10^3/uL [place] # (Auto) 1.0 (0.0-1.0) 10^3/uL Eos # (Auto) 0.0 (0.0-0.7) 10^3/uL Baso # (Auto) 0.1 (0.0-0.1) 10^3/uL Absolute Nucleated RBC 0.13 x10^3/uL Total Counted Band Neuts % (Manual) (0 - 10) % Abnorm Lymph % (Manual) % Metamyelocytes % ( - 0) % Nucleated RBC % 0.7 /100WBC Neutrophils # (Manual) (1.5-6.6) 10^3/uL Lymphocytes # (Manual) (1.5-3.5) 10^3/uL Monocytes # (Manual) (0.0-1.0) 10^3/uL Eosinophils # (Manual) (0-0.7) 10^3/uL Basophils # (Manual) (0-0.1) 10^3/uL Differential Comment WBC Morphology (NORMAL) Platelet Estimate (NORMAL) Platelet Morphology (NORMAL) RBC Morph Micro Appear (NORMAL) PT (9.9-12.6) secs INR (0.8-1.2) APTT (24.9-33.3) secs Fibrinogen (220-496) mg/dL Sodium (135-145) mmol/L Potassium (3.5-5.0) mmol/L Chloride (101-111) mmol/L Carbon Dioxide (21-32) mmol/L Anion Gap (6-13) BUN (6-20) mg/dL Creatinine (0.4-1.0) mg/dL Estimated GFR (MDRD) (>89) Glucose (70-100) mg/dL POC Whole Bld Glucose 85 57 L* (70 - 100) mg/dL Uric Acid (2.6-7.2) mg/dL Calcium (8.5-10.3) mg/dL Magnesium (1.7-2.8) mg/dL Total Bilirubin (0.2-1.0) mg/dL AST (10-42) IU/L ALT (10-60) IU/L Alkaline Phosphatase (42-121) IU/L Ammonia (7-35) umol/L Lactate Dehydrogenase (91-225) IU/L Total Protein (6.7-8.2) g/dL Albumin (3.2-5.5) g/dL Globulin (2.1-4.2) g/dL Albumin/Globulin Ratio (1.0-2.2) Amylase (28-100) U/L Lipase (22-51) U/L Urine Creatinine mg/dL Ur Total Protein Timed mg/dL Protein/Creatinin Ratio (<=0.2) 06/17/20 06/17/20 06/17/20 Range/Units 19:03 19:03 19:03 WBC (4.8-10.8) x10^3/uL RBC (4.20-5.40) 10^6/uL Hgb (12.0-16.0) g/dL Hct (37.0-47.0) % MCV (81.0-99.0) fL MCH (27.0-31.0) pg MCHC (32.0-36.0) g/dL RDW (12.0-15.0) % Plt Count (130-450) 10^3/uL MPV (7.9-10.8) fL Neut # (Auto) (1.5-6.6) 10^3/uL Lymph # (Auto) (1.5-3.5) 10^3/uL [place] # (Auto) (0.0-1.0) 10^3/uL Eos # (Auto) (0.0-0.7) 10^3/uL Baso # (Auto) (0.0-0.1) 10^3/uL Absolute Nucleated RBC x10^3/uL Total Counted Band Neuts % (Manual) (0 - 10) % Abnorm Lymph % (Manual) % Metamyelocytes % ( - 0) % Nucleated RBC % /100WBC Neutrophils # (Manual) (1.5-6.6) 10^3/uL Lymphocytes # (Manual) (1.5-3.5) 10^3/uL Monocytes # (Manual) (0.0-1.0) 10^3/uL Eosinophils # (Manual) (0-0.7) 10^3/uL Basophils # (Manual) (0-0.1) 10^3/uL Differential Comment WBC Morphology (NORMAL) Platelet Estimate (NORMAL) Platelet Morphology (NORMAL) RBC Morph Micro Appear (NORMAL) PT (9.9-12.6) secs INR (0.8-1.2) APTT (24.9-33.3) secs Fibrinogen (220-496) mg/dL Sodium (135-145) mmol/L Potassium (3.5-5.0) mmol/L Chloride (101-111) mmol/L Carbon Dioxide (21-32) mmol/L Anion Gap (6-13) BUN (6-20) mg/dL Creatinine (0.4-1.0) mg/dL Estimated GFR (MDRD) (>89) Glucose (70-100) mg/dL POC Whole Bld Glucose (70 - 100) mg/dL Uric Acid 5.9 (2.6-7.2) mg/dL Calcium (8.5-10.3) mg/dL Magnesium 4.4 H (1.7-2.8) mg/dL Total Bilirubin (0.2-1.0) mg/dL AST (10-42) IU/L ALT (10-60) IU/L Alkaline Phosphatase (42-121) IU/L Ammonia 14.5 (7-35) umol/L Lactate Dehydrogenase 299 H (91-225) IU/L Total Protein (6.7-8.2) g/dL Albumin (3.2-5.5) g/dL Globulin (2.1-4.2) g/dL Albumin/Globulin Ratio (1.0-2.2) Amylase (28-100) U/L Lipase (22-51) U/L Urine Creatinine mg/dL Ur Total Protein Timed mg/dL Protein/Creatinin Ratio (<=0.2) 06/17/20 06/17/20 06/17/20 Range/Units 19:03 19:03 19:03 WBC 21.0 H (4.8-10.8) x10^3/uL RBC 3.98 L (4.20-5.40) 10^6/uL Hgb 9.9 L (12.0-16.0) g/dL Hct 32.5 L (37.0-47.0) % MCV 81.7 (81.0-99.0) fL MCH 24.9 L (27.0-31.0) pg MCHC 30.5 L (32.0-36.0) g/dL RDW 17.2 H (12.0-15.0) % Plt Count 174 (130-450) 10^3/uL MPV 10.5 (7.9-10.8) fL Neut # (Auto) Not Reportable (1.5-6.6) 10^3/uL Lymph # (Auto) Not Reportable (1.5-3.5) 10^3/uL [place] # (Auto) Not Reportable (0.0-1.0) 10^3/uL Eos # (Auto) Not Reportable (0.0-0.7) 10^3/uL Baso # (Auto) Not Reportable (0.0-0.1) 10^3/uL Absolute Nucleated RBC Not Reportable x10^3/uL Total Counted 100 Band Neuts % (Manual) 1 (0 - 10) % Abnorm Lymph % (Manual) 0 % Metamyelocytes % 1 H ( - 0) % Nucleated RBC % Not Reportable /100WBC Neutrophils # (Manual) 19.5 H (1.5-6.6) 10^3/uL Lymphocytes # (Manual) 0.8 L (1.5-3.5) 10^3/uL Monocytes # (Manual) 0.4 (0.0-1.0) 10^3/uL Eosinophils # (Manual) 0.0 (0-0.7) 10^3/uL Basophils # (Manual) 0.0 (0-0.1) 10^3/uL Differential Comment MANUAL DIFFERENTIAL WBC Morphology NORMAL APPEARANCE (NORMAL) Platelet Estimate NORMAL (130-450,000) (NORMAL) Platelet Morphology NORMAL APPEARANCE (NORMAL) RBC Morph Micro Appear 1+ POLYCHROMASIA (NORMAL) PT 11.4 (9.9-12.6) secs INR 1.0 (0.8-1.2) APTT 28.4 (24.9-33.3) secs Fibrinogen 250 (220-496) mg/dL Sodium 138 (135-145) mmol/L Potassium 4.0 (3.5-5.0) mmol/L Chloride 105 (101-111) mmol/L Carbon Dioxide 19 L (21-32) mmol/L Anion Gap 14.0 H (6-13) BUN 15 (6-20) mg/dL Creatinine 1.0 (0.4-1.0) mg/dL Estimated GFR (MDRD) 63 L (>89) Glucose 74 (70-100) mg/dL POC Whole Bld Glucose (70 - 100) mg/dL Uric Acid (2.6-7.2) mg/dL Calcium 8.2 L (8.5-10.3) mg/dL Magnesium (1.7-2.8) mg/dL Total Bilirubin 0.8 (0.2-1.0) mg/dL AST 147 H (10-42) IU/L ALT 157 H (10-60) IU/L Alkaline Phosphatase 207 H (42-121) IU/L Ammonia (7-35) umol/L Lactate Dehydrogenase (91-225) IU/L Total Protein 5.0 L (6.7-8.2) g/dL Albumin 2.0 L (3.2-5.5) g/dL Globulin 3.0 (2.1-4.2) g/dL Albumin/Globulin Ratio 0.7 L (1.0-2.2) Amylase (28-100) U/L Lipase (22-51) U/L Urine Creatinine mg/dL Ur Total Protein Timed mg/dL Protein/Creatinin Ratio (<=0.2) 06/17/20 06/17/20 06/17/20 Range/Units 18:42 18:15 17:54 WBC (4.8-10.8) x10^3/uL RBC (4.20-5.40) 10^6/uL Hgb (12.0-16.0) g/dL Hct (37.0-47.0) % MCV (81.0-99.0) fL MCH (27.0-31.0) pg MCHC (32.0-36.0) g/dL RDW (12.0-15.0) % Plt Count (130-450) 10^3/uL MPV (7.9-10.8) fL Neut # (Auto) (1.5-6.6) 10^3/uL Lymph # (Auto) (1.5-3.5) 10^3/uL [place] # (Auto) (0.0-1.0) 10^3/uL Eos # (Auto) (0.0-0.7) 10^3/uL Baso # (Auto) (0.0-0.1) 10^3/uL Absolute Nucleated RBC x10^3/uL Total Counted Band Neuts % (Manual) (0 - 10) % Abnorm Lymph % (Manual) % Metamyelocytes % ( - 0) % Nucleated RBC % /100WBC Neutrophils # (Manual) (1.5-6.6) 10^3/uL Lymphocytes # (Manual) (1.5-3.5) 10^3/uL Monocytes # (Manual) (0.0-1.0) 10^3/uL Eosinophils # (Manual) (0-0.7) 10^3/uL Basophils # (Manual) (0-0.1) 10^3/uL Differential Comment WBC Morphology (NORMAL) Platelet Estimate (NORMAL) Platelet Morphology (NORMAL) RBC Morph Micro Appear (NORMAL) PT (9.9-12.6) secs INR (0.8-1.2) APTT (24.9-33.3) secs Fibrinogen (220-496) mg/dL Sodium (135-145) mmol/L Potassium (3.5-5.0) mmol/L Chloride (101-111) mmol/L Carbon Dioxide (21-32) mmol/L Anion Gap (6-13) BUN (6-20) mg/dL Creatinine (0.4-1.0) mg/dL Estimated GFR (MDRD) (>89) Glucose (70-100) mg/dL POC Whole Bld Glucose 53 L* 53 L* (70 - 100) mg/dL Uric Acid (2.6-7.2) mg/dL Calcium (8.5-10.3) mg/dL Magnesium (1.7-2.8) mg/dL Total Bilirubin (0.2-1.0) mg/dL AST (10-42) IU/L ALT (10-60) IU/L Alkaline Phosphatase (42-121) IU/L Ammonia (7-35) umol/L Lactate Dehydrogenase (91-225) IU/L Total Protein (6.7-8.2) g/dL Albumin (3.2-5.5) g/dL Globulin (2.1-4.2) g/dL Albumin/Globulin Ratio (1.0-2.2) Amylase (28-100) U/L Lipase (22-51) U/L Urine Creatinine 154.6 mg/dL Ur Total Protein Timed 70 mg/dL Protein/Creatinin Ratio 0.5 H (<=0.2) 06/17/20 06/17/20 06/17/20 Range/Units 17:47 16:07 16:07 WBC (4.8-10.8) x10^3/uL RBC (4.20-5.40) 10^6/uL Hgb (12.0-16.0) g/dL Hct (37.0-47.0) % MCV (81.0-99.0) fL MCH (27.0-31.0) pg MCHC (32.0-36.0) g/dL RDW (12.0-15.0) % Plt Count (130-450) 10^3/uL MPV (7.9-10.8) fL Neut # (Auto) (1.5-6.6) 10^3/uL Lymph # (Auto) (1.5-3.5) 10^3/uL [place] # (Auto) (0.0-1.0) 10^3/uL Eos # (Auto) (0.0-0.7) 10^3/uL Baso # (Auto) (0.0-0.1) 10^3/uL Absolute Nucleated RBC x10^3/uL Total Counted Band Neuts % (Manual) (0 - 10) % Abnorm Lymph % (Manual) % Metamyelocytes % ( - 0) % Nucleated RBC % /100WBC Neutrophils # (Manual) (1.5-6.6) 10^3/uL Lymphocytes # (Manual) (1.5-3.5) 10^3/uL Monocytes # (Manual) (0.0-1.0) 10^3/uL Eosinophils # (Manual) (0-0.7) 10^3/uL Basophils # (Manual) (0-0.1) 10^3/uL Differential Comment WBC Morphology (NORMAL) Platelet Estimate (NORMAL) Platelet Morphology (NORMAL) RBC Morph Micro Appear (NORMAL) PT (9.9-12.6) secs INR (0.8-1.2) APTT (24.9-33.3) secs Fibrinogen (220-496) mg/dL Sodium (135-145) mmol/L Potassium (3.5-5.0) mmol/L Chloride (101-111) mmol/L Carbon Dioxide (21-32) mmol/L Anion Gap (6-13) BUN (6-20) mg/dL Creatinine (0.4-1.0) mg/dL Estimated GFR (MDRD) (>89) Glucose (70-100) mg/dL POC Whole Bld Glucose 58 L* (70 - 100) mg/dL Uric Acid 5.8 (2.6-7.2) mg/dL Calcium (8.5-10.3) mg/dL Magnesium (1.7-2.8) mg/dL Total Bilirubin (0.2-1.0) mg/dL AST (10-42) IU/L ALT (10-60) IU/L Alkaline Phosphatase (42-121) IU/L Ammonia 19.9 (7-35) umol/L Lactate Dehydrogenase (91-225) IU/L Total Protein (6.7-8.2) g/dL Albumin (3.2-5.5) g/dL Globulin (2.1-4.2) g/dL Albumin/Globulin Ratio (1.0-2.2) Amylase (28-100) U/L Lipase (22-51) U/L Urine Creatinine mg/dL Ur Total Protein Timed mg/dL Protein/Creatinin Ratio (<=0.2) 06/17/20 06/17/20 06/17/20 Range/Units 16:07 16:07 16:03 WBC (4.8-10.8) x10^3/uL RBC (4.20-5.40) 10^6/uL Hgb (12.0-16.0) g/dL Hct (37.0-47.0) % MCV (81.0-99.0) fL MCH (27.0-31.0) pg MCHC (32.0-36.0) g/dL RDW (12.0-15.0) % Plt Count (130-450) 10^3/uL MPV (7.9-10.8) fL Neut # (Auto) (1.5-6.6) 10^3/uL Lymph # (Auto) (1.5-3.5) 10^3/uL [place] # (Auto) (0.0-1.0) 10^3/uL Eos # (Auto) (0.0-0.7) 10^3/uL Baso # (Auto) (0.0-0.1) 10^3/uL Absolute Nucleated RBC x10^3/uL Total Counted Band Neuts % (Manual) (0 - 10) % Abnorm Lymph % (Manual) % Metamyelocytes % ( - 0) % Nucleated RBC % /100WBC Neutrophils # (Manual) (1.5-6.6) 10^3/uL Lymphocytes # (Manual) (1.5-3.5) 10^3/uL Monocytes # (Manual) (0.0-1.0) 10^3/uL Eosinophils # (Manual) (0-0.7) 10^3/uL Basophils # (Manual) (0-0.1) 10^3/uL Differential Comment WBC Morphology (NORMAL) Platelet Estimate (NORMAL) Platelet Morphology (NORMAL) RBC Morph Micro Appear (NORMAL) PT 11.8 (9.9-12.6) secs INR 1.1 (0.8-1.2) APTT (24.9-33.3) secs Fibrinogen 259 (220-496) mg/dL Sodium 137 (135-145) mmol/L Potassium 4.0 (3.5-5.0) mmol/L Chloride 107 (101-111) mmol/L Carbon Dioxide 19 L (21-32) mmol/L Anion Gap 11.0 (6-13) BUN 15 (6-20) mg/dL Creatinine 1.1 H (0.4-1.0) mg/dL Estimated GFR (MDRD) 57 L (>89) Glucose 70 (70-100) mg/dL POC Whole Bld Glucose (70 - 100) mg/dL Uric Acid (2.6-7.2) mg/dL Calcium 8.6 (8.5-10.3) mg/dL Magnesium (1.7-2.8) mg/dL Total Bilirubin 0.8 (0.2-1.0) mg/dL AST 173 H (10-42) IU/L ALT 180 H (10-60) IU/L Alkaline Phosphatase 227 H (42-121) IU/L Ammonia (7-35) umol/L Lactate Dehydrogenase (91-225) IU/L Total Protein 5.7 L (6.7-8.2) g/dL Albumin 2.1 L (3.2-5.5) g/dL Globulin 3.6 (2.1-4.2) g/dL Albumin/Globulin Ratio 0.6 L (1.0-2.2) Amylase 59 (28-100) U/L Lipase 34 (22-51) U/L Urine Creatinine mg/dL Ur Total Protein Timed mg/dL Protein/Creatinin Ratio (<=0.2) 06/17/20 06/17/20 Range/Units 14:35 14:35 WBC 19.4 H (4.8-10.8) x10^3/uL RBC 3.96 L (4.20-5.40) 10^6/uL Hgb 9.7 L (12.0-16.0) g/dL Hct 32.3 L (37.0-47.0) % MCV 81.6 (81.0-99.0) fL MCH 24.5 L (27.0-31.0) pg MCHC 30.0 L (32.0-36.0) g/dL RDW 17.2 H (12.0-15.0) % Plt Count 183 (130-450) 10^3/uL MPV 11.0 H (7.9-10.8) fL Neut # (Auto) 16.4 H (1.5-6.6) 10^3/uL Lymph # (Auto) 1.6 (1.5-3.5) 10^3/uL [place] # (Auto) 1.2 H (0.0-1.0) 10^3/uL Eos # (Auto) 0.0 (0.0-0.7) 10^3/uL Baso # (Auto) 0.0 (0.0-0.1) 10^3/uL Absolute Nucleated RBC 0.19 x10^3/uL Total Counted Band Neuts % (Manual) (0 - 10) % Abnorm Lymph % (Manual) % Metamyelocytes % ( - 0) % Nucleated RBC % 1.0 /100WBC Neutrophils # (Manual) (1.5-6.6) 10^3/uL Lymphocytes # (Manual) (1.5-3.5) 10^3/uL Monocytes # (Manual) (0.0-1.0) 10^3/uL Eosinophils # (Manual) (0-0.7) 10^3/uL Basophils # (Manual) (0-0.1) 10^3/uL Differential Comment WBC Morphology (NORMAL) Platelet Estimate (NORMAL) Platelet Morphology (NORMAL) RBC Morph Micro Appear (NORMAL) PT (9.9-12.6) secs INR (0.8-1.2) APTT (24.9-33.3) secs Fibrinogen (220-496) mg/dL Sodium 139 (135-145) mmol/L Potassium 4.1 (3.5-5.0) mmol/L Chloride 110 (101-111) mmol/L Carbon Dioxide 20 L (21-32) mmol/L Anion Gap 9.0 (6-13) BUN 15 (6-20) mg/dL Creatinine 1.1 H (0.4-1.0) mg/dL Estimated GFR (MDRD) 57 L (>89) Glucose 73 (70-100) mg/dL POC Whole Bld Glucose (70 - 100) mg/dL Uric Acid (2.6-7.2) mg/dL Calcium 9.0 (8.5-10.3) mg/dL Magnesium (1.7-2.8) mg/dL Total Bilirubin 0.7 (0.2-1.0) mg/dL AST 171 H (10-42) IU/L ALT 174 H (10-60) IU/L Alkaline Phosphatase 211 H (42-121) IU/L Ammonia (7-35) umol/L Lactate Dehydrogenase (91-225) IU/L Total Protein 5.5 L (6.7-8.2) g/dL Albumin 2.2 L (3.2-5.5) g/dL Globulin 3.3 (2.1-4.2) g/dL Albumin/Globulin Ratio 0.7 L (1.0-2.2) Amylase (28-100) U/L Lipase (22-51) U/L Urine Creatinine mg/dL Ur Total Protein Timed mg/dL Protein/Creatinin Ratio (<=0.2) Assessment/Plan - Problem List (1) Pre-eclampsia Impression: Labs are improving. Reviewed case with M No need to transfer with glucose levels improving Encouraged to take oxycodone to increase mobility Cont magnesium for 24 hours Repeat labs at 6 hours after am labs Cont inpatient care
[2020-06-18 13:35] LABS: ALBUMIN 1.9 g/dL (3.2-5.5); ALBUMIN/GLOBULIN RATIO 0.6 (1.0-2.2); BILIRUBIN,TOTAL 0.4 mg/dL (0.2-1.0); CREATININE 0.9 mg/dL (0.4-1.0)
[2020-06-18 13:37] LABS: CALCIUM 5.8 mg/dL (8.5-10.3); MAGNESIUM 6.6 mg/dL (1.7-2.8)
[2020-06-18] MEDS ORDERED: CALCIUM GLUCONATE 1,000 MG in SODIUM CHLORIDE 0.9% 50 ML IV ONE (14:30)
[2020-06-18] MEDS: SIMETHICONE CHEW 80 MG TABLET PO PRN (19:57)
[2020-06-18] MEDS ORDERED: oxyCODONE 5 MG TABLET PO PRN ×3 (20:17→20:24)
[2020-06-19] MEDS: ALBUTEROL NEB 2.5 MG/3 ML INH PRN ×2 (00:58→04:29)
[2020-06-19] MEDS: SODIUM CHLORIDE FLUSH 0.9% 10 ML SYRINGE IVP SCH (01:09)
[2020-06-19] MEDS: DOCUSATE SODIUM 100 MG CAPSULE PO SCH ×3 (01:09→21:52)
[2020-06-19] MEDS: oxyCODONE 5 MG TABLET PO PRN ×2 (04:02→08:31)
[2020-06-19 05:36] LABS: BASOPHILS % (AUTO) 0.3 %; EOSINOPHILS % (AUTO) 0.5 %; HGB - HEMOGLOBIN 8.8 g/dL (12.0-16.0); LYMPHOCYTES % (AUTO) 13.6 %; MEAN CORPUSCULAR HEMOGLOBIN 24.3 pg (27.0-31.0); MEAN CORPUSCULAR HGB CONC 30.4 g/dL (32.0-36.0); MEAN CORPUSCULAR VOLUME 79.8 fL (81.0-99.0); MONOCYTES % (AUTO) 6.3 %; NEUTROPHILS % (AUTO) 77.2 %; PLT - PLATELET COUNT 216 10^3/uL (130-450); RED BLOOD COUNT 3.62 10^6/uL (4.20-5.40); RED CELL DISTRIBUTION WIDTH 17.7 % (12.0-15.0); WHITE BLOOD COUNT 21.3 x10^3/uL (4.8-10.8)
[2020-06-19 05:43] LABS: ABNORMAL LYMPHS % (MANUAL) 0 %; BAND NEUTROPHILS % (MANUAL) 0 %
[2020-06-19 05:56] LABS: ALBUMIN/GLOBULIN RATIO 0.6 (1.0-2.2); BILIRUBIN,TOTAL 0.5 mg/dL (0.2-1.0); CALCIUM 6.7 mg/dL (8.5-10.3); CREATININE 0.9 mg/dL (0.4-1.0); TOTAL PROTEIN 5.4 g/dL (6.7-8.2)
[2020-06-19 06:01] LABS: LYMPHOCYTES # (MANUAL) 1.9 10^3/uL (1.5-3.5); LYMPHOCYTES % (MANUAL) 9 %; MONOCYTES # (MANUAL) 1.1 10^3/uL (0.0-1.0)
[2020-06-19 06:02] LABS: DIFFERENTIAL COMMENT MANUAL DIFFERENTIAL; PLATELET ESTIMATE, MANUAL NORMAL (130-450,000) (NORMAL); PLATELET MORPHOLOGY NORMAL APPEARANCE (NORMAL)
--- NOTE | 2020-06-19 08:16 | PROVIDER PROGRESS NOTE ---
Subjective - Prog Note Date Prog Note Date: 06/19/20 Prog Note Time: 08:13 - Subjective Subjective: Patient has been up and out of bed. Poor pain management on oxycodone alone. ALT wnl, AST mildly elevated. Creatinine normalizing. BPs wnl. Tolerating po. UOB and voiding. Objective - Vital Signs/Intake & Output Vital Signs: Vital Signs x48h Temp Pulse Pulse Resp BP Pulse Ox 06/19/20 05:31 97.9 F 105 H 18 131/75 H 100 06/19/20 04:29 91 16 06/19/20 02:23 98.6 F 100 16 119/79 99 06/19/20 00:59 90 16 Intake & Output: Intake & Output 06/16/20 06/17/20 06/18/20 06/19/20 23:59 23:59 23:59 23:59 Intake Total 3815 4433.083 1080 Output Total 2310 13228 1100 Balance 1505 -2157.917 -20 - Objective General Appearance: positive: Mild distress Respiratory: positive: No respiratory distress Cardiovascular: positive: Other (RR) Abdomen: positive: Other (marked abd distention with TTP to palpation. Difficult to manipulate abd 2/2 pain. Dressing removed. CDI) Skin: positive: Color nml Neurologic/Psychiatric: positive: Oriented x3 - Lab Results Fish Bones: 06/19/20 05:20 06/19/20 05:20 Other Labs: Lab Results x24hrs 06/19/20 06/19/20 06/19/20 Range/Units 05:20 05:20 05:20 WBC 21.3 H (4.8-10.8) x10^3/uL RBC 3.62 L (4.20-5.40) 10^6/uL Hgb 8.8 L (12.0-16.0) g/dL Hct 28.9 L (37.0-47.0) % MCV 79.8 L (81.0-99.0) fL MCH 24.3 L (27.0-31.0) pg MCHC 30.4 L (32.0-36.0) g/dL RDW 17.7 H (12.0-15.0) % Plt Count 216 (130-450) 10^3/uL MPV 10.0 (7.9-10.8) fL Neut # (Auto) Not Reportable (1.5-6.6) 10^3/uL Lymph # (Auto) Not Reportable (1.5-3.5) 10^3/uL Churchill # (Auto) Not Reportable (0.0-1.0) 10^3/uL Eos # (Auto) Not Reportable (0.0-0.7) 10^3/uL Baso # (Auto) Not Reportable (0.0-0.1) 10^3/uL Absolute Nucleated RBC Not Reportable x10^3/uL Total Counted 100 Band Neuts % (Manual) 0 (0 - 10) % Abnorm Lymph % (Manual) 0 % Nucleated RBC % Not Reportable /100WBC Neutrophils # (Manual) 18.3 H (1.5-6.6) 10^3/uL Lymphocytes # (Manual) 1.9 (1.5-3.5) 10^3/uL Monocytes # (Manual) 1.1 H (0.0-1.0) 10^3/uL Eosinophils # (Manual) 0.0 (0-0.7) 10^3/uL Basophils # (Manual) 0.0 (0-0.1) 10^3/uL Differential Comment MANUAL DIFFERENTIAL WBC Morphology NORMAL APPEARANCE (NORMAL) Platelet Estimate NORMAL (130-450,000) (NORMAL) Platelet Morphology NORMAL APPEARANCE (NORMAL) RBC Morph Micro Appear 1+ POLYCHROMASIA (NORMAL) Fibrinogen 457 (220-496) mg/dL Sodium 133 L (135-145) mmol/L Potassium 3.5 (3.5-5.0) mmol/L Chloride 103 (101-111) mmol/L Carbon Dioxide 22 (21-32) mmol/L Anion Gap 8.0 (6-13) BUN 13 (6-20) mg/dL Creatinine 0.9 (0.4-1.0) mg/dL Estimated GFR (MDRD) 72 L (>89) Glucose 103 H (70-100) mg/dL POC Whole Bld Glucose (70 - 100) mg/dL Calcium 6.7 L (8.5-10.3) mg/dL Magnesium (1.7-2.8) mg/dL Total Bilirubin 0.5 (0.2-1.0) mg/dL AST 41 (10-42) IU/L ALT 78 H (10-60) IU/L Alkaline Phosphatase 171 H (42-121) IU/L Ammonia (7-35) umol/L Total Protein 5.4 L (6.7-8.2) g/dL Albumin 2.0 L (3.2-5.5) g/dL Globulin 3.4 (2.1-4.2) g/dL Albumin/Globulin Ratio 0.6 L (1.0-2.2) 06/18/20 06/18/20 06/18/20 Range/Units 21:49 16:04 13:13 WBC (4.8-10.8) x10^3/uL RBC (4.20-5.40) 10^6/uL Hgb (12.0-16.0) g/dL Hct (37.0-47.0) % MCV (81.0-99.0) fL MCH (27.0-31.0) pg MCHC (32.0-36.0) g/dL RDW (12.0-15.0) % Plt Count (130-450) 10^3/uL MPV (7.9-10.8) fL Neut # (Auto) (1.5-6.6) 10^3/uL Lymph # (Auto) (1.5-3.5) 10^3/uL Churchill # (Auto) (0.0-1.0) 10^3/uL Eos # (Auto) (0.0-0.7) 10^3/uL Baso # (Auto) (0.0-0.1) 10^3/uL Absolute Nucleated RBC x10^3/uL Total Counted Band Neuts % (Manual) (0 - 10) % Abnorm Lymph % (Manual) % Nucleated RBC % /100WBC Neutrophils # (Manual) (1.5-6.6) 10^3/uL Lymphocytes # (Manual) (1.5-3.5) 10^3/uL Monocytes # (Manual) (0.0-1.0) 10^3/uL Eosinophils # (Manual) (0-0.7) 10^3/uL Basophils # (Manual) (0-0.1) 10^3/uL Differential Comment WBC Morphology (NORMAL) Platelet Estimate (NORMAL) Platelet Morphology (NORMAL) RBC Morph Micro Appear (NORMAL) Fibrinogen (220-496) mg/dL Sodium (135-145) mmol/L Potassium (3.5-5.0) mmol/L Chloride (101-111) mmol/L Carbon Dioxide (21-32) mmol/L Anion Gap (6-13) BUN (6-20) mg/dL Creatinine (0.4-1.0) mg/dL Estimated GFR (MDRD) (>89) Glucose (70-100) mg/dL POC Whole Bld Glucose 101 H 97 (70 - 100) mg/dL Calcium (8.5-10.3) mg/dL Magnesium (1.7-2.8) mg/dL Total Bilirubin (0.2-1.0) mg/dL AST (10-42) IU/L ALT (10-60) IU/L Alkaline Phosphatase (42-121) IU/L Ammonia 11.4 (7-35) umol/L Total Protein (6.7-8.2) g/dL Albumin (3.2-5.5) g/dL Globulin (2.1-4.2) g/dL Albumin/Globulin Ratio (1.0-2.2) 06/18/20 06/18/20 06/18/20 Range/Units 13:13 13:13 13:13 WBC 17.3 H (4.8-10.8) x10^3/uL RBC 3.54 L (4.20-5.40) 10^6/uL Hgb 8.9 L (12.0-16.0) g/dL Hct 28.0 L (37.0-47.0) % MCV 79.1 L (81.0-99.0) fL MCH 25.1 L (27.0-31.0) pg MCHC 31.8 L (32.0-36.0) g/dL RDW 17.2 H (12.0-15.0) % Plt Count 187 (130-450) 10^3/uL MPV 9.9 (7.9-10.8) fL Neut # (Auto) 14.2 H (1.5-6.6) 10^3/uL Lymph # (Auto) 1.7 (1.5-3.5) 10^3/uL Churchill # (Auto) 1.1 H (0.0-1.0) 10^3/uL Eos # (Auto) 0.1 (0.0-0.7) 10^3/uL Baso # (Auto) 0.0 (0.0-0.1) 10^3/uL Absolute Nucleated RBC 0.08 x10^3/uL Total Counted Band Neuts % (Manual) (0 - 10) % Abnorm Lymph % (Manual) % Nucleated RBC % 0.5 /100WBC Neutrophils # (Manual) (1.5-6.6) 10^3/uL Lymphocytes # (Manual) (1.5-3.5) 10^3/uL Monocytes # (Manual) (0.0-1.0) 10^3/uL Eosinophils # (Manual) (0-0.7) 10^3/uL Basophils # (Manual) (0-0.1) 10^3/uL Differential Comment WBC Morphology (NORMAL) Platelet Estimate (NORMAL) Platelet Morphology (NORMAL) RBC Morph Micro Appear (NORMAL) Fibrinogen 381 (220-496) mg/dL Sodium 129 L (135-145) mmol/L Potassium 3.7 (3.5-5.0) mmol/L Chloride 99 L (101-111) mmol/L Carbon Dioxide 23 (21-32) mmol/L Anion Gap 7.0 (6-13) BUN 10 (6-20) mg/dL Creatinine 0.9 (0.4-1.0) mg/dL Estimated GFR (MDRD) 72 L (>89) Glucose 116 H (70-100) mg/dL POC Whole Bld Glucose (70 - 100) mg/dL Calcium 5.8 L* (8.5-10.3) mg/dL Magnesium 6.6 H* (1.7-2.8) mg/dL Total Bilirubin 0.4 (0.2-1.0) mg/dL AST 66 H (10-42) IU/L ALT 100 H (10-60) IU/L Alkaline Phosphatase 177 H (42-121) IU/L Ammonia (7-35) umol/L Total Protein 5.0 L (6.7-8.2) g/dL Albumin 1.9 L (3.2-5.5) g/dL Globulin 3.1 (2.1-4.2) g/dL Albumin/Globulin Ratio 0.6 L (1.0-2.2) 06/18/20 06/18/20 Range/Units 10:01 08:37 WBC (4.8-10.8) x10^3/uL RBC (4.20-5.40) 10^6/uL Hgb (12.0-16.0) g/dL Hct (37.0-47.0) % MCV (81.0-99.0) fL MCH (27.0-31.0) pg MCHC (32.0-36.0) g/dL RDW (12.0-15.0) % Plt Count (130-450) 10^3/uL MPV (7.9-10.8) fL Neut # (Auto) (1.5-6.6) 10^3/uL Lymph # (Auto) (1.5-3.5) 10^3/uL Churchill # (Auto) (0.0-1.0) 10^3/uL Eos # (Auto) (0.0-0.7) 10^3/uL Baso # (Auto) (0.0-0.1) 10^3/uL Absolute Nucleated RBC x10^3/uL Total Counted Band Neuts % (Manual) (0 - 10) % Abnorm Lymph % (Manual) % Nucleated RBC % /100WBC Neutrophils # (Manual) (1.5-6.6) 10^3/uL Lymphocytes # (Manual) (1.5-3.5) 10^3/uL Monocytes # (Manual) (0.0-1.0) 10^3/uL Eosinophils # (Manual) (0-0.7) 10^3/uL Basophils # (Manual) (0-0.1) 10^3/uL Differential Comment WBC Morphology (NORMAL) Platelet Estimate (NORMAL) Platelet Morphology (NORMAL) RBC Morph Micro Appear (NORMAL) Fibrinogen (220-496) mg/dL Sodium (135-145) mmol/L Potassium (3.5-5.0) mmol/L Chloride (101-111) mmol/L Carbon Dioxide (21-32) mmol/L Anion Gap (6-13) BUN (6-20) mg/dL Creatinine (0.4-1.0) mg/dL Estimated GFR (MDRD) (>89) Glucose (70-100) mg/dL POC Whole Bld Glucose 128 H 105 H (70 - 100) mg/dL Calcium (8.5-10.3) mg/dL Magnesium (1.7-2.8) mg/dL Total Bilirubin (0.2-1.0) mg/dL AST (10-42) IU/L ALT (10-60) IU/L Alkaline Phosphatase (42-121) IU/L Ammonia (7-35) umol/L Total Protein (6.7-8.2) g/dL Albumin (3.2-5.5) g/dL Globulin (2.1-4.2) g/dL Albumin/Globulin Ratio (1.0-2.2) Assessment/Plan - Problem List (1) Pre-eclampsia Impression: POD#2 with severe pre-E vs acute fatty liver, resolving WBC elevated and abd distended -Sending for stat abd xray Pain poorly managed: BPs wnl and creatinine wnl. ALT remains elevated -Hanson tart ibuprofen given continued transmaminitis Cont inpatient care
[2020-06-19] MEDS: SIMETHICONE CHEW 80 MG TABLET PO PRN ×2 (08:31→17:35)
--- NOTE | 2020-06-19 09:15 | XRAY Report ---
PROCEDURE: Abdomen 2 View X-Ray INDICATIONS: abdominal distentions post op w/ elevated LFT/WBCs TECHNIQUE: 2 views of the abdomen were acquired. COMPARISON: Ultrasound of abdomen dated 06/17/2020 FINDINGS: Surgical changes and devices: None. Bowel: There distended bowel loops are noted throughout abdomen. No gross peritoneal free air. Soft tissues: No masses; visualized solid organ contours appear normal in size. No suspicious abdom inal calcifications. Bones: No suspicious bony abnormalities. IMPRESSION: Finding is most suggestive of postop ileus. Distal small bowel obstruction cannot be exc luded. No definite free air is seen. Reviewed by: Surinder Nicole MD on 06/19/2020 9:14 AM PST Approved by: Surinder Nicole MD on 06/19/2020 9:14 AM PST Station ID: [id number]
[2020-06-19] MEDS: IBUPROFEN 600 MG TABLET PO SCH ×3 (17:36→19:17)
[2020-06-19] MEDS ORDERED: SODIUM CHLORIDE 0.65% NASAL SPRAY NAS PRN (18:49)
[2020-06-20] MEDS: IBUPROFEN 600 MG TABLET PO SCH ×3 (01:13→12:40)
[2020-06-20 09:43] VITALS: BP 131/78
--- NOTE | 2020-06-20 13:04 | Discharge Plan ---
Discharge Plan Problem Reviewed?: Yes Disposition: Home, Self Care Condition: Good Prescriptions: Blood Pressure Test Kit-Large [Blood Pressure Monitor] 1 each MC DAILY 60 Days #1 kit Docusate Sodium 100Mg Capsule [Colace 100Mg Capsule] 100 - 200 mg PO BID PRN #60 capsule PRN Reason: Constipation Docusate Sodium 100Mg Capsule [Colace 100Mg Capsule] 100 - 200 mg PO BID PRN #60 capsule PRN Reason: Constipation Docusate Sodium 100Mg Capsule [Colace 100Mg Capsule] 100 - 200 mg PO BID PRN #60 capsule PRN Reason: Constipation Ibuprofen [Motrin] 600 mg PO Q6H PRN #90 tab PRN Reason: Pain Ibuprofen [Motrin] 600 mg PO Q6H PRN #90 tab PRN Reason: Pain Ibuprofen [Motrin] 600 mg PO Q6H PRN #90 tab PRN Reason: Pain oxyCODONE [Roxicodone] 5 mg PO Q4H PRN #24 tablet PRN Reason: Pain oxyCODONE [Roxicodone] 5 mg PO Q4H PRN #24 tablet PRN Reason: Pain oxyCODONE [Roxicodone] 5 mg PO Q4H PRN #24 tablet PRN Reason: Pain Diet: Regular Activity Restrictions: Additional Comments Shower Restrictions: Yes Health Concerns: Nothing in the vagina for 6 weeks: No intercourse, tampons, douching Call for: -Fever greater than 100.5 -Pain that does not improve with pain medication -Heavy bleeding in which you are soaking a pad an hour for 2 hours in a row -Incision becomes hot, hard, red, starts to open, or leaks foul smelling fluid No lifting more than 10# for 4 [address] while on narcotics Ok to shower. Let water run over the incision. Do not soap, scrub, or apply lotion. Pat dry with a clean towel or usee a dental chair assembler. The surgical stickers w ill start to peel off and you can remove them when they do. Otherwise, the provider will remove them at your one week follow-up appointment. OK to use an unscented sanitary napkin or clean washcloth to keep the incision dry if the belly folds over the incision. Plan of Treatment: Return to clinic in one week for blood pressure and incision check. Please check blood pressure once a day PLEASE CALL IMMEDIATELY FOR: 1) Blood pressures in which the top number (systolic blood pressure) is over 160 OR The bottom number (diastolic blood pressure) is over 110 2) Severe headache that does not get better with pain medicine 3) Pain in the upper right part of your belly 4) Dark spots or sparkly lights in from of your eyes 5) New onset nausea and vomiting No Smoking: If you smoke, Please STOP! Call for help. Follow-up with: Aracelis Robles MD [Provider Admit Priv/Credential] -
--- NOTE | 2020-06-20 13:10 | PROVIDER PROGRESS NOTE ---
Subjective - Prog Note Date Prog Note Date: 06/20/20 Prog Note Time: 13:07 - Subjective Subjective: Patient is up and ambulating, tolerating po, and voiding. Pain is well managed with pain medications. Now taking ibuprofen. Blood pressures remain in mild to normal range. Adequate urinary output. Endorses some mild pain in the right upper quadrant when attempting to sit up. No nausea or vomiting Objective - Vital Signs/Intake & Output Reviewed Vital Signs: Yes Vital Signs: Vital Signs x48h Temp Pulse Resp BP Pulse Ox 06/20/20 09:00 98.6 F 92 18 131/78 H 100 Intake & Output: Intake & Output 06/17/20 06/18/20 06/19/20 06/20/20 23:59 23:59 23:59 23:59 Intake Total 3815 4433.083 2130 100 Output Total 2310 17557 1100 Balance 1505 -5891.917 1030 100 - Objective General Appearance: positive: No acute distress Eyes Bilateral: positive: Normal inspection Respiratory: positive: No respiratory distress Cardiovascular: positive: Regular rate & rhythm Abdomen: positive: Other (S&mildly tender. No pronounced TTP in RUP. FF below umbi Incision with steris in place, CDI) Skin: positive: Color nml Extremities: positive: Non-tender, No pedal edema Neurologic/Psychiatric: positive: Oriented x3 - Lab Results Fish Bones: 06/19/20 05:20 06/19/20 05:20 Assessment/Plan - Problem List (1) Pre-eclampsia Impression: POD#3 s/p rLTCS with pre-eclampsia with severe features vs acute fatty liver of -Appears to be improving -Meeting goals for discharge -Will send one more set of labs given c/o mild RUQ with mobilization If labs are continuing to trend in the appropriate direction, ok to DC ho9me -Will check blood pressures daily and was given written instructions on warning signs prompting return to hospital Discharge pending labs
[2020-06-20 13:31] LABS: BASOPHILS % (AUTO) 0.3 %; EOSINOPHILS # (AUTO) 0.3 10^3/uL (0.0-0.7); EOSINOPHILS % (AUTO) 1.7 %; HGB - HEMOGLOBIN 8.8 g/dL (12.0-16.0); LYMPHOCYTES % (AUTO) 13.5 %; MEAN CORPUSCULAR HEMOGLOBIN 24.6 pg (27.0-31.0); MEAN CORPUSCULAR HGB CONC 30.1 g/dL (32.0-36.0); MEAN CORPUSCULAR VOLUME 81.6 fL (81.0-99.0); MEAN PLATELET VOLUME 9.5 fL (7.9-10.8); MONOCYTES # (AUTO) 0.8 10^3/uL (0.0-1.0); MONOCYTES % (AUTO) 5.3 %; NEUTROPHILS # (AUTO) 11.7 10^3/uL (1.5-6.6); NEUTROPHILS % (AUTO) 77.7 %; PLT - PLATELET COUNT 282 10^3/uL (130-450); RED BLOOD COUNT 3.58 10^6/uL (4.20-5.40); RED CELL DISTRIBUTION WIDTH 18.3 % (12.0-15.0)
[2020-06-20 13:44] LABS: ALBUMIN 2.3 g/dL (3.2-5.5); ALBUMIN/GLOBULIN RATIO 0.6 (1.0-2.2); BILIRUBIN,TOTAL 0.4 mg/dL (0.2-1.0); CREATININE 0.9 mg/dL (0.4-1.0)
--- NOTE | 2020-06-20 13:52 | DISCHARGE SUMMARY ---
"Discharge Summary Admit Date: 06/17/20 Discharge Date: 06/20/20 Discharging Provider: Margaret Code Status: Attempt Resuscitation Condition at Discharge: Good Discharge Disposition: 01 Home, Self Care - DIAGNOSES Admission Diagnoses: IUP at 37+0 wga Hx of prior with high uterine incision Discharge Diagnoses with Status of Each Condition: Same and delivery of term gestation LGA infant Pre-eclampsia with severe features Possible acute fatty liver of - HPI History of Present Illness: Patient is a 35 yo at 37+0 wga with a hx of 33 week delivery via CS for bleeding previa admitted for repeat . Has high incision on the uterus from bleeding previa at 33 weeks in prior and earlier delivery was recommended. Started rachel on morning of scheduled . Proceeded with repeat low transverse . hx as below: S>G: EFW 97%ile on 05/29/2020 BMZ given week prior to delivery TDAP given O pos/Rub imm NIPT 46 XY, AFP wnl Declined carrier screening as completing in prior Declined early glucola FAS 02/19/20 Anterior placenta, CL 5.1, 3VC, FAS wnl EFW 74%ile Flu vax: 04/01/20 TDAP 05/06/20 Glucola 133 HCT 36.2 HSV: denies GBS neg Scheduled repeat at 37-38 weeks per M. Declines BTL Pap NILM/HPV 12/04/2019 - CONSULTS | PROCEDURES Consultations: Respiratory therapy Procedures: Repeat low transverse - HOSPITAL COURSE Hospital Course: Patient was admitted for the aforementioned procedure. Procedure was uncomplicated; delivering a male infant in vertex presentation, Apgars 8/8 we ighing 4310g. Patient developed mild range blood pressure in the immediate post period and was noted to be mildly somnolent. PIH labs were sent and AST and ALT were elevated to the 170s/180s. Creatinine was 1.1 form a baseline of 0.7. Urine protein to creatinine ration of 0.5. WBC was elevated to a peak of 21 while patient remained afebrile. Platelets showed a downward trend. Fibrinogen was below normal and patient was hypoglycemic with glucose levels ranging between 51-73. INR was 1.1. Patient showed extreme nausea and vomtiing. Glucose levels remain in hypoglycemic range despite providing juice/soda. She was started on magnesium 4 g bolus and 2g/hr infusion. [facility] was contacted and case was reviewed with Maternal Medicine given concerns for acute darin liver of . [facility] care [facility] and recommended transfer only if clinical scenario/labs worsened. Patient was started on a D5LR infusion to maintain glucose levels. Magnesium infusion was reduced to 1 g/hr on POD#1 due to higher magnesium levels and patient was given 1 amp of calcium gluconate. LFTs and creatinine levels started to improve as glucose levels normalized. Infusion was stopped at 24 hours. On POD#2, patient was noted to have abdominal distention. Abdominal x-ray showed ileus, which resolved with mobilization. Respiratory therapy was consulted due to decreased breath sounds due to atelectasis in the setting of decreased mobillity. She underwent PEP therapy to increase lung volumes with good response. By POD#3, labs had normalized. Blood pressures remained in normal to mild range. She was mobilizing, pain was well managed, she was tolerating po, and ileus had resolved. She was discharged to home with follow-up in one week. - ALLERGIES Allergies/Adverse Reactions: Allergies Allergy/AdvReac Type Severity Reaction Status Date / Time Sulfa (Sulfonamide Allergy Nausea Verified 05/27/20 12:15 Antibiotics) - MEDICATIONS Home Medications: Ambulatory Orders Medication Instructions Recorded Confirmed Celecoxib [CeleBREX] 200 mg PO BID PRN #40 capsule 03/24/18 Docusate Sodium [Dulcolax Stool 100 mg PO BID PRN #60 capsule 03/24/18 Softener] Fluticasone [Flonase] 1 sprays NEIDA DAILY bottle 03/24/18 oxyCODONE [Roxicodone] 5 - 10 mg PO Q4H PRN #20 tablet 03/24/18 Methylergonovine Maleate 0.2 mg PO TID #9 tablet 04/08/18 [Methergine] Ondansetron Odt [Zofran] 4 mg TL Q6H PRN #15 tablet 04/08/18 Nitrofurantoin [Macrobid] 100 mg PO BID #14 capsule 04/10/18 Hydrocodone/Acetaminophen 1 - 2 each PO Q6H PRN #14 tablet 05/29/18 [Hydrocodon-Acetaminophen 5-325] Acetaminophen [Tylenol] 650 mg PO Q6H #30 tab 06/02/20 Acetaminophen [Tylenol] 650 mg PO Q6H PRN #30 tab 06/02/20 Benzonatate [Tessalon] 100 mg PO TID PRN #18 capsule 06/02/20 Fluticasone Propionate [Flovent 500 mcg IH BID #2 blst.w.dev 06/02/20 Diskus] Fluticasone Propionate [Flovent 500 mcg IH BID #2 blst.w.dev 06/02/20 Diskus] Zolpidem [Ambien] 5 mg PO HS PRN #5 tablet 06/02/20 Zolpidem [Ambien] 5 mg PO HS PRN #5 tablet 06/02/20 oxyCODONE [Roxicodone] 5 mg PO Q4-6H PRN #12 tablet 06/02/20 oxyCODONE [Roxicodone] 5 mg PO Q4-6H PRN #12 tablet 06/02/20 Blood Pressure Test Kit-Large 1 each MC DAILY 60 Days #1 kit 06/20/20 [Blood Pressure Monitor] Docusate Sodium 100Mg Capsule 100 - 200 mg PO BID PRN #60 capsule 06/20/20 [Colace 100Mg Capsule] Docusate Sodium 100Mg Capsule 100 - 200 mg PO BID PRN #60 capsule 06/20/20 [Colace 100Mg Capsule] Docusate Sodium 100Mg Capsule 100 - 200 mg PO BID PRN #60 capsule 06/20/20 [Colace 100Mg Capsule] Ferrous Sulfate 325 mg PO DAILY 60 Days #60 06/20/20 tablet. Ibuprofen [Motrin] 600 mg PO Q6H PRN #90 tab 06/20/20 Ibuprofen [Motrin] 600 mg PO Q6H PRN #90 tab 06/20/20 Ibuprofen [Motrin] 600 mg PO Q6H PRN #90 tab 06/20/20 oxyCODONE [Roxicodone] 5 mg PO Q4H PRN #24 tablet 06/20/20 oxyCODONE [Roxicodone] 5 mg PO Q4H PRN #24 tablet 06/20/20 oxyCODONE [Roxicodone] 5 mg PO Q4H PRN #24 tablet 06/20/20 - LABS Result Diagrams: 06/20/20 13:24 06/20/20 13:24 - FOLLOW UP Follow Up: 1 week with Margaret. Scheduled for 06/27/2020 - TIME SPENT Time Spent in Discharge (Minutes): 30"
--- NOTE | 2020-06-20 15:47 | Labor Flowsheet ---
Labor Flowsheet Datetime Report Generated by CPN: 06/20/2020 15:46 Datetime: 06/17/2020 19:35 VAGINAL EXAM Membranes Ruptured Date/Time: 06/17/2020 07:57 Membranes Rupture Method: Artificial Amniotic Fluid Color: Light Meconium Amniotic Fluid Amount: Moderate
== END 2020-06-20 15:40 | disposition home or self-care (01) | DRG 787 ==
LOC: WFO 05:45 → FBP 05:46 → EDSTATUS 07:30
PROVIDERS: ADMIT Obstetrics & Gynecology; ATTEND Obstetrics & Gynecology
PROC: 10D00Z1 Extraction of Products of Conception, Low, Open Approach (ICD-10-PCS; principal; 2020-06-17 07:30)
DX: O34.211 Maternal care for low transverse scar from previous cesarean delivery (principal); J98.11 Atelectasis; K56.7 Ileus, unspecified; N85.8 Other specified noninflammatory disorders of uterus; O14.14 Severe pre-eclampsia complicating childbirth; Z3A.37 37 weeks gestation of pregnancy; Z37.0 Single live birth; O99.214 Obesity complicating childbirth; O99.513 Diseases of the respiratory system complicating pregnancy, third trimester; J45.909 Unspecified asthma, uncomplicated; O36.63X0 Maternal care for excessive fetal growth, third trimester, not applicable or unspecified; O99.63 Diseases of the digestive system complicating the puerperium; O99.815 Abnormal glucose complicating the puerperium; E16.2 Hypoglycemia, unspecified
CPT/HCPCS: 36415; 74019; 76705; 80053; 82140; 82150; 82570; 83615; 83690; 83735; 84156; 84550; 85025; 85384; 85610; 85730; 86850; 86900; 86901; 86920; 94640; A9270; J0131; J2274; J2765; J7040; J7120; J3475

== ENCOUNTER 2020-08-20 22:13 | Emergency (ER) | payer OTHER ==
[2020-08-20 22:37] LABS: BILIRUBIN,URINE NEGATIVE (NEGATIVE); GLUCOSE, URINE (UA) NEGATIVE (NEGATIVE); KETONES,URINE (UA) NEGATIVE (NEGATIVE); LEUKOCYTE ESTERASE, URINE NEGATIVE (NEGATIVE); NITRITE,URINE NEGATIVE (NEGATIVE); OCCULT BLOOD,URINE MODERATE (NEGATIVE); PROTEIN,URINE NEGATIVE (NEGATIVE); UROBILINOGEN,URINE 0.2 (NORMAL) E.U./dL (NORMAL)
[2020-08-20 22:38] LABS: CLARITY,URINE CLEAR (CLEAR); HCG UR QUAL NEGATIVE
[2020-08-20 22:47] LABS: BACTERIA,URINE Rare /HPF (None Seen); RBC,URINE 0-5 /HPF (0-5); SQUAMOUS EPITHELIAL CELL,UR MOD Squamous (<= Few)
--- NOTE | 2020-08-21 00:15 | ED Physician Documentation ---
PD HPI FEMALE - Stated complaint Stated Complaint: FEMALE /BLOODY URINE/BACK PX - Chief complaint Chief Complaint: UTI - History obtained from History obtained from: Patient - History of Present Illness Timing - onset: How many days ago (2-3) Timing - duration: Days Timing - details: Gradual onset Pain level max: 5 Associated symptoms: Back pain, Hematuria. No: Fever, Vaginal bleeding, Dysuria, Urinary frequency Similar symptoms before: Has not had sx before Recently seen: Clinic - Additional information Additional information: Patient complains of gross hematuria and midline low back pain for the past 2 to 3 days. She denies fever, denies nausea vomiting. Patient had a two months ago but did not develop the symptoms until 2 to 3 days ago. Patient was evaluated by Dr. Robles earlier today, results of urinalysis and vaginal swab are pending. Review of Systems Constitutional: reports: Reviewed and negative GI: reports: Reviewed and negative : reports: Hematuria. denies: Dysuria, Frequency, Vaginal bleeding Skin: denies: Rash Musculoskeletal: reports: Back pain Neurologic: denies: Focal weakness, Numbness PD PAST MEDICAL HISTORY - Past Medical History Past Medical History: Yes Cardiovascular: None Respiratory: Other Neuro: None Endocrine/Autoimmune: None GI: GERD, Ulcers, Other : None HEENT: None Psych: None Musculoskeletal: None Derm: None - Past Surgical History Past Surgical History: Yes Ortho: Other /GENERAL II [employer]: section Cardiovascular: Other - Present Medications Home Medications: Ambulatory Orders Medication Instructions Recorded Confirmed Celecoxib [CeleBREX] 200 mg PO BID PRN #40 capsule 03/24/18 Docusate Sodium [Dulcolax Stool 100 mg PO BID PRN #60 capsule 03/24/18 Softener] Fluticasone [Flonase] 1 sprays NEIDA DAILY bottle 03/24/18 oxyCODONE [Roxicodone] 5 - 10 mg PO Q4H PRN #20 tablet 03/24/18 Methylergonovine Maleate 0.2 mg PO TID #9 tablet 04/08/18 [Methergine] Ondansetron Odt [Zofran] 4 mg TL Q6H PRN #15 tablet 04/08/18 Nitrofurantoin [Macrobid] 100 mg PO BID #14 capsule 04/10/18 Hydrocodone/Acetaminophen 1 - 2 each PO Q6H PRN #14 tablet 12/02/18 [Hydrocodon-Acetaminophen 5-325] Acetaminophen [Tylenol] 650 mg PO Q6H #30 tab 06/02/20 Acetaminophen [Tylenol] 650 mg PO Q6H PRN #30 tab 06/02/20 Benzonatate [Tessalon] 100 mg PO TID PRN #18 capsule 06/02/20 Fluticasone Propionate [Flovent 500 mcg IH BID #2 blst.w.dev 06/02/20 Diskus] Fluticasone Propionate [Flovent 500 mcg IH BID #2 blst.w.dev 06/02/20 Diskus] Zolpidem [Ambien] 5 mg PO HS PRN #5 tablet 06/02/20 Zolpidem [Ambien] 5 mg PO HS PRN #5 tablet 06/02/20 oxyCODONE [Roxicodone] 5 mg PO Q4-6H PRN #12 tablet 06/02/20 oxyCODONE [Roxicodone] 5 mg PO Q4-6H PRN #12 tablet 06/02/20 Blood Pressure Test Kit-Large 1 each MC DAILY 60 Days #1 kit 06/20/20 [Blood Pressure Monitor] Docusate Sodium 100Mg Capsule 100 - 200 mg PO BID PRN #60 capsule 06/20/20 [Colace 100Mg Capsule] Docusate Sodium 100Mg Capsule 100 - 200 mg PO BID PRN #60 capsule 06/20/20 [Colace 100Mg Capsule] Docusate Sodium 100Mg Capsule 100 - 200 mg PO BID PRN #60 capsule 06/20/20 [Colace 100Mg Capsule] Ferrous Sulfate 325 mg PO DAILY 60 Days #60 06/20/20 tablet. Ibuprofen [Motrin] 600 mg PO Q6H PRN #90 tab 06/20/20 Ibuprofen [Motrin] 600 mg PO Q6H PRN #90 tab 06/20/20 Ibuprofen [Motrin] 600 mg PO Q6H PRN #90 tab 06/20/20 oxyCODONE [Roxicodone] 5 mg PO Q4H PRN #24 tablet 06/20/20 oxyCODONE [Roxicodone] 5 mg PO Q4H PRN #24 tablet 06/20/20 oxyCODONE [Roxicodone] 5 mg PO Q4H PRN #24 tablet 06/20/20 Cyclobenzaprine [Flexeril] 10 mg PO TID PRN #20 tab 08/21/20 traMADol [Ultram] 50 - 100 mg PO Q6H PRN #14 08/21/20 - Allergies Allergies/Adverse Reactions: Allergies Allergy/AdvReac Type Severity Reaction Status Date / Time Sulfa (Sulfonamide Allergy Nausea Verified 08/20/20 22:15 Antibiotics) - Social History Does the pt smoke?: No Smoking Status: Never smoker Does the pt drink ETOH?: No Does the pt have substance abuse?: No - Immunizations Immunizations are current?: Yes - POLST Patient has POLST: No POLST Status: Full Code PD ED PE NORMAL - Vitals Vital signs reviewed: Yes - General General: Alert and oriented X 3, No acute distress, Well developed/nourished - Cardiac Cardiac: RRR, No murmur - Respiratory Respiratory: No respiratory distress, Clear bilaterally - Abdomen Abdomen: Soft - Back Back: No CVA TTP, No spinal TTP - Derm Derm: Normal color, No rash Results - Vitals Vitals: Vital Signs - 24 hr 08/20/20 08/20/20 08/21/20 22:16 22:19 03:03 Temperature 36.5 C 36.5 C 36.5 C Heart Rate 76 76 72 Respiratory 16 16 16 Rate Blood Pressure 138/73 H 132/72 H 131/74 H O2 Saturation 100 100 100 Oxygen O2 Source Room air - Labs Labs: Laboratory Tests 08/20/20 08/21/20 08/21/20 22:32 00:43 00:43 WBC 8.0 RBC 4.77 Hgb 13.4 Hct 42.5 MCV 89.1 MCH 28.1 MCHC 31.5 L RDW 17.7 H Plt Count 345 MPV 9.0 Neut # (Auto) 4.9 Lymph # (Auto) 2.3 [place] # (Auto) 0.4 Eos # (Auto) 0.2 Baso # (Auto) 0.0 Absolute Nucleated RBC 0.00 Nucleated RBC % 0.0 Sodium 134 L Potassium 3.3 L Chloride 99 L Carbon Dioxide 25 Anion Gap 10.0 BUN 8 Creatinine 0.8 Estimated GFR (MDRD) 82 L Glucose 119 H Calcium 9.6 Total Bilirubin 0.7 AST 30 ALT 41 Alkaline Phosphatase 112 Total Protein 8.6 H Albumin 4.6 Globulin 4.0 Albumin/Globulin Ratio 1.1 Lipase 34 Urine Color YELLOW Urine Clarity CLEAR Urine pH 6.0 Ur Specific [place] 1.015 Urine Protein NEGATIVE Urine Glucose (UA) NEGATIVE Urine Ketones NEGATIVE Urine Occult Blood MODERATE H Urine Nitrite NEGATIVE Urine Bilirubin NEGATIVE Urine Urobilinogen 0.2 (NORMAL) Ur Leukocyte Esterase NEGATIVE Urine RBC 0-5 Urine WBC 0-3 Ur Squamous Epith Cells MOD Squamous H Urine Bacteria Rare Ur Microscopic Review INDICATED Urine Culture Comments NOT INDICATED Urine HCG, Qual NEGATIVE - Rads (name of study) CT A/P Radiology: Prelim report reviewed, See rad report PD MEDICAL DECISION MAKING - ED course Complexity details: reviewed results, re-evaluated patient, considered differential, d/w patient ED course: unremarkable blood tests (mild hypokalemia is incidentally noted), UA macro moderate blood although no RBC on micro. no UA result to suggest UTI. CT demonstrates no abnormalities. results d/w patient. no findings on exam nor testing to suggest emergent diagnosis such as osteomyelitis, epidural abscess, kidney stone, pyelonephritis, endometritis. advised to follow up with on/obstetrician and gynaecologist, return if worse Departure - Departure Disposition: 01 Home, Self Care Clinical Impression: Back pain, Hematuria, Hypokalemia Condition: Good Instructions: ED Hematuria, ED Neck Back Pain General, ED Acute Pain [facility] Follow-Up: Douglas Baron [Primary Care Provider] - Within 1 week Prescriptions: Cyclobenzaprine [Flexeril] 10 mg PO TID PRN #20 tab PRN Reason: Spasms traMADol [Ultram] 50 - 100 mg PO Q6H PRN #14 PRN Reason: Pain Discharge Date/Time: 08/21/20 03:03
[2020-08-21] MEDS ORDERED: KETOROLAC 30 MG/ML VIAL IVP STA (00:34)
[2020-08-21 00:48] LABS: BASOPHILS % (AUTO) 0.5 %; EOSINOPHILS # (AUTO) 0.2 10^3/uL (0.0-0.7); EOSINOPHILS % (AUTO) 2.9 %; HGB - HEMOGLOBIN 13.4 g/dL (12.0-16.0); LYMPHOCYTES # (AUTO) 2.3 10^3/uL (1.5-3.5); LYMPHOCYTES % (AUTO) 29.3 %; MEAN CORPUSCULAR HEMOGLOBIN 28.1 pg (27.0-31.0); MEAN CORPUSCULAR HGB CONC 31.5 g/dL (32.0-36.0); MEAN CORPUSCULAR VOLUME 89.1 fL (81.0-99.0); MONOCYTES # (AUTO) 0.4 10^3/uL (0.0-1.0); MONOCYTES % (AUTO) 5.3 %; NEUTROPHILS # (AUTO) 4.9 10^3/uL (1.5-6.6); NEUTROPHILS % (AUTO) 61.6 %; PLT - PLATELET COUNT 345 10^3/uL (130-450); RED BLOOD COUNT 4.77 10^6/uL (4.20-5.40); RED CELL DISTRIBUTION WIDTH 17.7 % (12.0-15.0)
[2020-08-21 01:01] LABS: ALBUMIN 4.6 g/dL (3.2-5.5); ALBUMIN/GLOBULIN RATIO 1.1 (1.0-2.2); BILIRUBIN,TOTAL 0.7 mg/dL (0.2-1.0); CALCIUM 9.6 mg/dL (8.5-10.3); CREATININE 0.8 mg/dL (0.4-1.0); TOTAL PROTEIN 8.6 g/dL (6.7-8.2)
[2020-08-21] MEDS ORDERED: IOVERSOL 320 100 ML VIAL IVP ONE ×2 (01:02→01:21)
[2020-08-21] MEDS ORDERED: CYCLOBENZAPRINE 10 MG Prepack 2 PO PRN (02:45)
[2020-08-21] MEDS ORDERED: POTASSIUM CHLORIDE 20 MEQ TABLET PO STA (02:49)
[2020-08-21 03:04] VITALS: BP 131/74
--- NOTE | 2020-08-21 09:04 | CT Report ---
PROCEDURE: Abdomen/Pelvis W INDICATIONS: back and abd. pain CONTRAST: IV CONTRAST: Optiray 320 ml: 100 PO CONTRAST: *NO PO CONTRAST TECHNIQUE: After the administration of contrast, 5 mm thick sections acquired from the diaphragms to the sym physis. 5 mm thick coronal and sagittal reformats were acquired. For radiation dose reduction, the following was used: automated exposure control, adjustment of mA and/or kV according to patient size . COMPARISON: 05/23/2019 CT abdomen/pelvis . FINDINGS: Image quality: Excellent. ABDOMEN: Lung bases: Lung bases are clear. Heart size is normal. Solid organs: Liver and spleen are normal in size and enhancement. Gallbladder shows no calcified g allstones Biliary system is non dilated. Pancreas enhances normally. No adrenal nodules. Kidneys demonstrate normal size and enhancement, without hydronephrosis. Peritoneum and bowel: Bowel loops demonstrate normal wall thickness and caliber. No free fluid or a ir. Nodes and vessels: No retroperitoneal or mesenteric adenopathy by size criteria. Aorta and inferior vena cava are normal in size. Miscellaneous: No ventral hernias. PELVIS: Genitourinary: Bladder wall thickness is normal. Miscellaneous: No inguinal hernias or adenopathy. Bones: No suspicious bony lesions. No vertebral body compression fractures. IMPRESSION: Normal appendix found, no sign of abdominal or pelvic pain source. No gallstones are see n. Please note that radiolucent gallstones that are cholesterol rich may not be detected by CT scanni ng. Reviewed by: Vincenzo Monson MD on 08/21/2020 9:03 AM [facility] Approved by: Vincenzo Monson MD on 08/21/2020 9:03 AM PST Station ID: [id number]
== END 2020-08-21 03:03 | disposition home or self-care (01) ==
LOC: ED 22:13
DX: M54.5 Low back pain (principal); R31.9 Hematuria, unspecified; E87.6 Hypokalemia
CPT/HCPCS: 36415; 74177; 80053; 81001; 81025; 83690; 85025; 96374; 99284; A9270; Q9967; 81003; 87086

== ENCOUNTER 2020-08-21 08:00 | Outpatient (CLI) | payer OTHER ==
[2020-08-21 13:51] LABS: BILIRUBIN,URINE NEGATIVE (NEGATIVE); CLARITY,URINE CLEAR (CLEAR); GLUCOSE, URINE (UA) NEGATIVE (NEGATIVE); KETONES,URINE (UA) NEGATIVE (NEGATIVE); LEUKOCYTE ESTERASE, URINE NEGATIVE (NEGATIVE); NITRITE,URINE NEGATIVE (NEGATIVE); OCCULT BLOOD,URINE NEGATIVE (NEGATIVE); PROTEIN,URINE NEGATIVE (NEGATIVE); UROBILINOGEN,URINE 0.2 (NORMAL) E.U./dL (NORMAL)
[2020-08-21 14:12] LABS: BACTERIA,URINE None Seen /HPF (None Seen); RBC,URINE None Seen /HPF (0-5); SQUAMOUS EPITHELIAL CELL,UR MOD Squamous (<= Few); WBC,URINE 0-3 /HPF (0-5)
[2020-08-21 20:26] LABS: BACTERIAL VAGINOSIS DNA NEGATIVE (NEGATIVE); CANDIDA GLABRATA DNA NEGATIVE (NEGATIVE); CANDIDA GROUP DNA NEGATIVE (NEGATIVE); CANDIDA KRUSEI DNA NEGATIVE (NEGATIVE); TRICHOMONAS VAGINALIS DNA NEGATIVE (NEGATIVE)
== END 2020-08-21 23:59 | disposition home or self-care (01) ==
LOC: LAB.R 08:00
PROVIDERS: ATTEND Obstetrics & Gynecology
DX: N89.8 Other specified noninflammatory disorders of vagina (principal)
CPT/HCPCS: 81001; 87086; 87661; 87801

== ENCOUNTER 2020-09-03 08:00 | Outpatient (CLI) | payer OTHER ==
[2020-09-03 18:05] LABS: HCT - HEMATOCRIT 45.2 % (37.0-47.0); MEAN CORPUSCULAR HEMOGLOBIN 28.3 pg (27.0-31.0); MEAN CORPUSCULAR VOLUME 91.3 fL (81.0-99.0); MEAN PLATELET VOLUME 10.4 fL (7.9-10.8); RED BLOOD COUNT 4.95 10^6/uL (4.20-5.40); RED CELL DISTRIBUTION WIDTH 16.2 % (12.0-15.0); WHITE BLOOD COUNT 7.2 x10^3/uL (4.8-10.8)
[2020-09-03 18:07] LABS: INR 1.2 (0.8-1.2); PT - PROTHROMBIN TIME 13.2 secs (9.9-12.6)
[2020-09-03 18:29] LABS: ALBUMIN 4.8 g/dL (3.2-5.5); ALBUMIN/GLOBULIN RATIO 1.3 (1.0-2.2); BILIRUBIN,TOTAL 0.9 mg/dL (0.2-1.0); CALCIUM 9.5 mg/dL (8.5-10.3); CREATININE 0.7 mg/dL (0.4-1.0); POTASSIUM 3.6 mmol/L (3.5-5.0); TOTAL PROTEIN 8.4 g/dL (6.7-8.2)
== END 2020-09-03 23:59 | disposition home or self-care (01) ==
LOC: LAB.WCP 08:00
PROVIDERS: ATTEND Obstetrics & Gynecology
DX: N93.8 Other specified abnormal uterine and vaginal bleeding (principal); R74.01 Elevation of levels of liver transaminase levels
CPT/HCPCS: 36415; 80053; 85027; 85610

== ENCOUNTER 2020-09-15 09:33 | Outpatient (CLI) | payer OTHER ==
--- NOTE | 2020-09-15 14:05 | Ultrasound Report ---
PROCEDURE: Abdomen Limited INDICATIONS: TRANSAMINASES, SERUM, ELEVATED TECHNIQUE: Real-time scanning was performed of the abdominal and retroperitoneal organs, with image documentatio n. COMPARISON: CT abdomen and pelvis 08/21/2020. Abdominal ultrasound 06/17/2020. FINDINGS: Liver: Liver is normal in size and homogeneous in echotexture. Gallbladder: Gallbladder is nondistended. No stones or sludge. No gallbladder wall thickening. No per icholecystic fluid. Negative sonographic Valderrama sign. Biliary ducts: Intrahepatic bile ducts are non-dilated. Extrahepatic bile duct caliber measures 4 m m. Normal is 6-7 mm or less in diameter, or 10 mm or less post-cholecystectomy. Pancreas: Visualized portions of the pancreas are sonographically normal. Right kidney: Measures 11.1 cm, cortex 1.5 cm. No hydronephrosis. IVC: Intrahepatic inferior vena cava is patent. IMPRESSION: 1. No acute cholecystitis. No gallstones. 2. No biliary ductal dilatation seen. Reviewed by: Osmar Lugo MD on 09/15/2020 1:04 PM [facility] Approved by: Osmar Lugo MD on 09/15/2020 1:04 PM [facility] Station ID: [id number]
== END 2020-09-15 09:34 | disposition home or self-care (01) ==
LOC: DI 09:33
PROVIDERS: ATTEND Obstetrics & Gynecology
DX: R74.01 Elevation of levels of liver transaminase levels (principal)

== ENCOUNTER 2020-11-30 18:47 | Outpatient (CLI) | payer OTHER ==
--- NOTE | 2020-12-01 14:42 | Ultrasound Report ---
PROCEDURE: Pelvic w/Transvaginal INDICATIONS: History of ovarian cyst. TECHNIQUE: Real-time scanning was performed of the pelvic organs, with image documentation. Additional endovagi nal scanning was necessary due to incomplete visualization of the adnexal and endometrial structures by transabdominal scanning. COMPARISON: None. FINDINGS: No pathologic free abdominal or pelvic fluid. Uterus: Uterus is normal in size at 4.6 x 6.2 x 9.3 cm. The endometrium measures 8.1 mm in combined thickness. Ovaries: The right ovary measures 2.5 x 1.1 x 1.7 cm and the left measures 2.5 x 1.5 x 1.5 cm. No ev idence of ovarian torsion. No cyst found. IMPRESSION: No ovarian cyst found, resolution of previously present cyst. No new cystic or solid lesion has devel oped. Normal-appearing uterus and endometrial lining. Reviewed by: Vincenzo Monson MD on 12/01/2020 1:41 PM [facility] Approved by: Vincenzo Monson MD on 12/01/2020 1:41 PM [facility] Station ID: [id number]
== END 2020-11-30 18:48 | disposition home or self-care (01) ==
LOC: DI 18:47
PROVIDERS: ATTEND Obstetrics & Gynecology
DX: Z87.42 Personal history of other diseases of the female genital tract (principal)